=== PATIENT | male | born 1945 | race Caucasian/White ===

== ENCOUNTER → 2017-08-05 | Outpatient (CLI) | payer MEDICARE, OTHER ==
[~2017-08-05] MED LIST: AMLO10TA82 PO; ASP81TEC PO; ATOR80TA PO; BNZ20T PO; ENAL10TA PO; ENAL5TAB PO; ENLP2.5T PO; FISH1CAP15 PO; LEVE500T6 PO; METO50TA7 PO; MTP25TSR PO; OMG1KC PO; PANT40TA2 PO; PNT40TEC PO; PRAS10TA6 PO; SIMV20TA3 PO; SULF1TAB38 PO
[2017-08-05 10:13] LABS: ALBUMIN 4.1 GM/DL (3.2-4.5); BILIRUBIN,DIRECT 0.2 MG/DL (0.0-0.3); BILIRUBIN,INDIRECT 0.5 MG/DL; BILIRUBIN,TOTAL 0.7 MG/DL (0.1-1.0); TOTAL PROTEIN 6.6 GM/DL (6.4-8.2)
== END ==
LOC: LAB 09:24
PROVIDERS: ATTEND Internal Medicine Cardiovascular Disease
DX: I25.10 Atherosclerotic heart disease of native coronary artery without angina pectoris (principal); I10 Essential (primary) hypertension; E78.5 Hyperlipidemia, unspecified; I71.4 Abdominal aortic aneurysm, without rupture; I65.29 Occlusion and stenosis of unspecified carotid artery
CPT/HCPCS: 36415; 80061; 80076

== ENCOUNTER → 2017-08-11 | Outpatient (CLI) | payer MEDICARE, OTHER ==
[~2017-08-11] MED LIST changes: +CATHETER FLUSH 10 ML SYR IV PRN; +IOHEXOL 350 MG/ML 150 ML (OMNIPAQUE 350) VIAL IV ONE; +NS 250 ML (IVPB) BAG IV ONE
[2017-08-11 12:53] LABS: BUN/CREATININE RATIO 14; CALCIUM 9.2 MG/DL (8.5-10.1); CARBON DIOXIDE 18 MMOL/L (21-32); CHLORIDE 110 MMOL/L (98-107); CREATININE SERUM 1.11 MG/DL (0.60-1.30); GFR ESTIMATED > 60; GLUCOSE 78 MG/DL (70-105); POTASSIUM 4.5 MMOL/L (3.6-5.0); SODIUM 145 MMOL/L (135-145)
--- NOTE | 2017-08-11 16:16 | Diagnostic Imaging Report ---
INDICATION: Bilateral leg pain, weakness, occasional falls. TECHNIQUE: Pre and post IV contrast-enhanced CT angio abdominal aorta with bilateral lower extremity runoffs performed with 2D and 3D reconstructions. COMPARISON: Exam compared with a previous dated 05/30/2012. FINDINGS: An infrarenal abdominal aortic aneurysm treated with stent graft device anchored just below the takeoff of the opacified renal arteries bilaterally. The proximal aspect of the stent shows a large amount of new mural thrombus narrowing the lumen by about 80%. The aneurysmal sac is increased measuring 6.3 x 6.3 cm, previously 5.3 cm in diameter. No endoleak, however, is identified during the dynamic arterial phase. No evidence for aneurysmal rupture. This bifurcated device shows occlusion throughout the length of its left iliac segment. This is a new finding from prior. There is occlusion throughout the length of the left external iliac in the pelvis. There is some reconstitution at the level of the left common femoral. The right iliac component shows some likely neointimal hyperplasia without significant luminal stenosis or occlusion. The right external iliac artery is widely patent. The celiac and the superior mesenteric arteries are widely patent. There is therapeutic occlusion of the FLOR with a prominent arc of [place] as a developmental collateralization. There are no findings of acute solid or hollow visceral end-organ ischemia. An area of scarring in the lower pole of the left kidney, unchanged from prior. The gallbladder is absent. Liver, spleen, adrenals, and pancreas are nonacute. Right leg: There is moderate calcified plaque at the common femoral without hemodynamically significant stenosis. The profunda and its branches are patent. The right SFA shows only minimal plaque without stenosis. The popliteal is patent. The common tibial peroneal trunk is patent and through the level of the ankle, there is a three-vessel runoff. Left leg: Reconstitution of flow in the left leg at the common femoral is noted where there is moderate degrees of mixed soft and hard plaque and less than 50% stenosis. The profunda is patent. There is mild plaque, predominantly soft, in the proximal third of the left SFA and mild plaque, mixed soft and hard, in the distal third of the left SFA without hemodynamically significant degree of focal stenosis. The popliteal is patent and the common tibioperoneal trunk is patent and there is an opacified three-vessel runoff through the ankle. IMPRESSION: 1. Bifurcated stent graft shows progressive thrombus within its proximal aortic component and new complete occlusion of its left iliac limb. Increased size of aneurysmal sac, dimensions above, however no demonstrated endoleak at the arterial phase and no aneurysmal rupture. 2. There is occlusion of the left external iliac throughout its length with reconstitution at the level of the common femoral. 3. Mild disease involving the femoropopliteal system with patent three-vessel runoff bilaterally. 4. Abdominopelvic solid and hollow viscera, stable from prior and nonacute. Dictated by: Dictated on workstation # [id number]
== END ==
LOC: RAD 12:23
PROVIDERS: ATTEND Internal Medicine Cardiovascular Disease
DX: I74.5 Embolism and thrombosis of iliac artery (principal); I99.8 Other disorder of circulatory system; I21.9 Acute myocardial infarction, unspecified; I25.10 Atherosclerotic heart disease of native coronary artery without angina pectoris; I10 Essential (primary) hypertension; W19.XXXA Unspecified fall, initial encounter; Z95.818 Presence of other cardiac implants and grafts
CPT/HCPCS: 36415; 75635; 80048

== ENCOUNTER → 2017-09-03 | Outpatient (CLI) | payer MEDICARE, OTHER ==
[~2017-09-03] MED LIST changes: -CATHETER FLUSH 10 ML SYR IV PRN; -IOHEXOL 350 MG/ML 150 ML (OMNIPAQUE 350) VIAL IV ONE; -NS 250 ML (IVPB) BAG IV ONE
== END ==
LOC: RT 09:21
PROVIDERS: ATTEND Thoracic Surgery (Cardiothoracic Vascular Surgery)
DX: I71.4 Abdominal aortic aneurysm, without rupture (principal)
CPT/HCPCS: 94060; 94726; 94729

== ENCOUNTER 2018-01-21 09:34 | Inpatient (IN) | payer MEDICARE, OTHER ==
[~2018-01-21] VITALS: Ht 165.1 cm; Wt 82.1 kg
[2018-01-21] VITALS (21 sets, daily range): BP systolic 103–161; BP diastolic 57–87
[2018-01-21] MEDS ORDERED: PIPERACILLIN SODIUM/TAZOBACTAM 4.5 GM in NS (IVPB) 100 ML IV SCH (10:15)
[2018-01-21] MEDS ORDERED: CALCIUM CARBONATE 500 MG (TUMS) TAB.CHEW PO PRN (10:15)
[2018-01-21] MEDS ORDERED: DOCUSATE SODIUM 100 MG (COLACE) CAP PO PRN (10:15)
[2018-01-21] MEDS ORDERED: ONDANSETRON 4 MG/2 ML (SDV) Z0FRAN IVP PRN (10:15)
[2018-01-21] MEDS ORDERED: HYDROcodone/APAP 5 MG/325 MG (LORTAB) TAB PO PRN (10:15)
[2018-01-21] MEDS ORDERED: LACTULOSE SYRUP 10GM/15ML (ENULOSE) 30ML UDC PO PRN (10:15)
[2018-01-21] MEDS ORDERED: ENAL10TA PO (10:32)
[2018-01-21] MEDS ORDERED: ATOR80TA76 PO (10:32)
[2018-01-21] MEDS ORDERED: METO-387 PO (10:32)
[2018-01-21] MEDS ORDERED: CLOP75TA28 PO (10:32)
[2018-01-21] MEDS ORDERED: PANT40TA3 PO (10:32)
--- NOTE | 2018-01-21 10:33 | Pulmonary Consultation ---
History of Present Illness History of Present Illness Date of Consultation 01/21/18 10:30 Date of Admission Allergies and Home Medications Allergies Coded Allergies: No Known Drug Allergies (Unverified , 05/16/11) Home Medications Aspirin 81 Mg Tabec, 81 MG PO DAILY, (Reported) Atorvastatin Calcium 80 Mg Tablet, 80 MG PO DAILY, (Reported) Enalapril Maleate 10 Mg Tablet, 10 MG PO BID, (Reported) Fish Oil/Dha/Epa 1 Each Capsule, 3 EACH PO DAILY, (Reported) Levetiracetam 500 Mg Tablet, 500 MG PO BID, (Reported) Metoprolol Succinate 50 Mg Tab, 50 MG PO DAILY, (Reported) Pantoprazole Sodium 40 Mg Tablet.dr, 40 MG PO DAILY, (Reported) Prasugrel Hydrochloride 10 Mg Tablet, 10 MG PO DAILY, (Reported) Past Tdrjauz-Nafcif-Dyvjux Hx Past Medical History Reproductive Disorders: No Gall Bladder Disease Brain Sepsis Event Evaluation Height, Weight, BMI Height: 5'6.00" Weight: 185lbs. 0.0oz. [id number]; 29.9 BMI Method:Stated Exam Exam Height & Weight Height: 5'6.00" Weight: 185lbs. 0.0oz. 83.021238aj; 29.9 BMI Method:Stated Assessment/Plan Assessment/Plan pneumonia - -Check labs -Check CT of chest -change abx to vanco and zosyn -Pt has been on abx and transferred here from [facility] [place] secondary to persistent pneumonia despite IV ABx -PT will probably need bronchoscopy -Pt is currently on Plavix so it would be better to wait 5 days until he is off plavix Tobacco use JB SAINI DO Jan 21, 2018 10:33
--- OUTSIDE RECORDS SUMMARY | 2018-01-21 10:44 | XMS REPORT | Continuity of Care Document ---
Author Author [facility] Organization [facility] Address Unknown Phone Unavailable Allergies Active Description Code Type Severity Reaction Onset Reported/Identified Relationship to Patient Clinical Status Yes No Known Drug Allergies [id number] Drug Allergy Unknown N/A 05/16/2011 Medications There is no data. Problems Date Dx Coded Attending Type Code Diagnosis Diagnosed By 03/16/2014 ANDRES ARORA MD Ot 397.0 03/16/2014 ANDRES ARORA MD Ot 401.9 03/16/2014 ANDRES ARORA MD Ot 414.00 03/16/2014 ANDRES ARORA MD Ot 424.0 03/16/2014 ANDRES ARORA MD Ot 441.4 01/16/2015 ANDRES ARORA MD Ot 272.4 HYPERLIPIDEMIA NEC/NOS 01/16/2015 ANDRES ARORA MD Ot 305.1 TOBACCO USE DISORDER 01/16/2015 ANDRES ARORA MD Ot 401.9 HYPERTENSION NOS 01/16/2015 ANDRES ARORA MD Ot 412 OLD MYOCARDIAL INFARCT 01/16/2015 ANDRES ARORA MD Ot 414.01 CORONARY ATHEROSCLEROSIS OF [place] CORON 01/16/2015 ANDRES ARORA MD Ot 794.30 ABN CARDIOVASC STUDY NOS 01/16/2015 ANDRES ARORA MD Ot V12.41 HX BENIGN NEOPLASM/BRAIN 01/16/2015 ANDRES ARORA MD Ot V45.82 PERCUTANEOUS TRANSLUM CORON ANGIOPLASTY 01/16/2015 ANDRES ARORA MD Ot V58.69 OTH MED,LT,CURRENT USE 01/22/2015 SERJIO SARKAR Ot 401.9 01/22/2015 SERJIO SARKAR Ot 414.00 01/22/2015 SERJIO SARKAR Ot 433.10 01/22/2015 SERJIO SARKAR Ot 441.4 10/14/2015 SERJIO SARKAR K Ot I10 ESSENTIAL (PRIMARY) HYPERTENSION 10/14/2015 EDMAR ZHAO SERJIO K Ot I25.10 ATHSCL HEART DISEASE OF [place] CORONARY 10/14/2015 SERJIO SARKAR Ot I71.4 ABDOMINAL AORTIC ANEURYSM, WITHOUT RUPTU 10/18/2015 EDMAR ZHAO SERJIO K Ot I10 ESSENTIAL (PRIMARY) HYPERTENSION 10/18/2015 EDMAR ZHAO SERJIO K Ot I25.10 ATHSCL HEART DISEASE OF [place] CORONARY 10/18/2015 SERJIO SARKAR Ot I71.4 ABDOMINAL AORTIC ANEURYSM, WITHOUT RUPTU 08/09/2017 ANDRES ARORA MD Ot E78.5 HYPERLIPIDEMIA, UNSPECIFIED 08/09/2017 ANDRES ARORA MD Ot I10 ESSENTIAL (PRIMARY) HYPERTENSION 08/09/2017 ANDRES ARORA MD Ot I25.10 ATHSCL HEART DISEASE OF [place] CORONARY 08/09/2017 ANDRES ARORA MD Ot I65.29 OCCLUSION AND STENOSIS OF UNSPECIFIED CA 08/09/2017 ANRDES ARORA MD Ot I71.4 ABDOMINAL AORTIC ANEURYSM, WITHOUT RUPTU 08/09/2017 ANDRES ARORA MD Ot E78.5 HYPERLIPIDEMIA, UNSPECIFIED 08/09/2017 ANDRES ARORA MD Ot I10 ESSENTIAL (PRIMARY) HYPERTENSION 08/09/2017 ANDRES ARORA MD Ot I25.10 ATHSCL HEART DISEASE OF [place] CORONARY 08/09/2017 ANDRES ARORA MD Ot I65.29 OCCLUSION AND STENOSIS OF UNSPECIFIED CA 08/09/2017 ANDRES ARORA MD Ot I71.4 ABDOMINAL AORTIC ANEURYSM, WITHOUT RUPTU 08/11/2017 Ot 441.4 ABDOM AORTIC ANEURYSM 08/11/2017 Ot 414.00 CORON ATHEROSCLER NOS TYPE VESSEL, NATIV 08/11/2017 Ot 786.50 CHEST PAIN NOS 08/11/2017 Ot 397.0 TRICUSPID VALVE DISEASE 08/11/2017 Ot 414.00 CORON ATHEROSCLER NOS TYPE VESSEL, NATIV 08/11/2017 Ot 424.0 MITRAL VALVE DISORDER 08/11/2017 Ot 786.50 CHEST PAIN NOS 08/11/2017 ANDRES ARORA MD Ot 140.0 MAL АЛЕКСАНДР UPPER VERMILION 08/11/2017 ANDRES ARORA MD Ot 272.4 HYPERLIPIDEMIA NEC/NOS 08/11/2017 ANDRES ARORA MD Ot 305.1 TOBACCO USE DISORDER 08/11/2017 ANDRES ARORA MD Ot 333.94 RESTLESS LEGS SYNDROME 08/11/2017 ANDRES ARORA MD Ot 401.9 HYPERTENSION NOS 08/11/2017 ANDRES ARORA MD Ot 441.4 ABDOM AORTIC ANEURYSM 08/11/2017 ANDRES ARORA MD Ot 397.0 TRICUSPID VALVE DISEASE 08/11/2017 ANDRES ARORA MD Ot 401.9 HYPERTENSION NOS 08/11/2017 ANDRES ARORA MD Ot 414.00 CORON ATHEROSCLER NOS TYPE VESSEL, NATIV 08/11/2017 ANDRES ARORA MD Ot 424.0 MITRAL VALVE DISORDER 08/11/2017 ANDRES ARORA MD Ot 441.4 ABDOM AORTIC ANEURYSM 08/11/2017 SERJIO SARKAR Ot 401.9 HYPERTENSION NOS 08/11/2017 SERJIO SARKAR Ot 414.00 CORON ATHEROSCLER NOS TYPE VESSEL, NATIV 08/11/2017 SERJIO SARKAR Ot 433.10 CAROTID ARTERY OCCLUSION W O CEREBRAL IN 08/11/2017 SERJIO SARKAR Ot 441.4 ABDOM AORTIC ANEURYSM 08/11/2017 ANDRES ARORA MD Ot E78.5 HYPERLIPIDEMIA, UNSPECIFIED 08/11/2017 ANDRES ARORA MD Ot I10 ESSENTIAL (PRIMARY) HYPERTENSION 08/11/2017 ANDRES ARORA MD Ot I25.10 ATHSCL HEART DISEASE OF [place] CORONARY 08/11/2017 ANDRES ARORA MD Ot I65.29 OCCLUSION AND STENOSIS OF UNSPECIFIED CA 08/11/2017 ANDRES ARORA MD Ot I71.4 ABDOMINAL AORTIC ANEURYSM, WITHOUT RUPTU 08/11/2017 Ot 441.4 ABDOM AORTIC ANEURYSM 08/11/2017 Ot 414.00 CORON ATHEROSCLER NOS TYPE VESSEL, NATIV 08/11/2017 Ot 786.50 CHEST PAIN NOS 08/11/2017 Ot 397.0 TRICUSPID VALVE DISEASE 08/11/2017 Ot 414.00 CORON ATHEROSCLER NOS TYPE VESSEL, NATIV 08/11/2017 Ot 424.0 MITRAL VALVE DISORDER 08/11/2017 Ot 786.50 CHEST PAIN NOS 08/11/2017 ANDRES ARORA MD Ot 140.0 MAL АЛЕКСАНДР UPPER VERMILION 08/11/2017 ANDRES ARORA MD Ot 272.4 HYPERLIPIDEMIA NEC/NOS 08/11/2017 ANDRES ARORA MD Ot 305.1 TOBACCO USE DISORDER 08/11/2017 ANDRES ARORA MD Ot 333.94 RESTLESS LEGS SYNDROME 08/11/2017 ANDRES ARORA MD Ot 401.9 HYPERTENSION NOS 08/11/2017 ANDRES ARORA MD Ot 441.4 ABDOM AORTIC ANEURYSM 08/11/2017 ANDRES ARORA MD Ot 397.0 TRICUSPID VALVE DISEASE 08/11/2017 ANDRES ARORA MD Ot 401.9 HYPERTENSION NOS 08/11/2017 ANDRES ARORA MD Ot 414.00 CORON ATHEROSCLER NOS TYPE VESSEL, NATIV 08/11/2017 ANDRES ARORA MD Ot 424.0 MITRAL VALVE DISORDER 08/11/2017 ANDRES ARORA MD Ot 441.4 ABDOM AORTIC ANEURYSM 08/11/2017 SERJIO SARKAR Ot 401.9 HYPERTENSION NOS 08/11/2017 SERJIO SARKAR Ot 414.00 CORON ATHEROSCLER NOS TYPE VESSEL, NATIV 08/11/2017 SERJIO SARKAR Ot 433.10 CAROTID ARTERY OCCLUSION W O CEREBRAL IN 08/11/2017 SERJIO SARKAR Ot 441.4 ABDOM AORTIC ANEURYSM 08/11/2017 ANDRES ARORA MD Ot E78.5 HYPERLIPIDEMIA, UNSPECIFIED 08/11/2017 ANDRES ARORA MD Ot I10 ESSENTIAL (PRIMARY) HYPERTENSION 08/11/2017 ANDRES ARORA MD Ot I25.10 ATHSCL HEART DISEASE OF [place] CORONARY 08/11/2017 ANDRES ARORA MD Ot I65.29 OCCLUSION AND STENOSIS OF UNSPECIFIED CA 08/11/2017 ANDRES ARORA MD Ot I71.4 ABDOMINAL AORTIC ANEURYSM, WITHOUT RUPTU 08/12/2017 ANDRES ARORA MD Ot I10 ESSENTIAL (PRIMARY) HYPERTENSION 08/12/2017 ANDRES ARORA MD Ot I21.9 ACUTE MYOCARDIAL INFARCTION, UNSPECIFIED 08/12/2017 ANDRES ARORA MD Ot I25.10 ATHSCL HEART DISEASE OF [place] CORONARY 08/12/2017 ANDRES ARORA MD Ot I74.5 EMBOLISM AND THROMBOSIS OF ILI[place] ARTERY 08/12/2017 ANDRES ARORA MD Ot I99.8 OTHER DISORDER OF CIRCULATORY SYSTEM 08/12/2017 ANDRES ARORA MD Ot W19.XXXA UNSPECIFIED FALL, INITIAL ENCOUNTER 08/12/2017 ANDRES ARORA MD Ot Z95.818 PRESENCE OF OTHER CARDIAC IMPLANTS AND G 08/12/2017 ANDRES ARORA MD Ot I10 ESSENTIAL (PRIMARY) HYPERTENSION 08/12/2017 ANDRES ARORA MD Ot I21.9 ACUTE MYOCARDIAL INFARCTION, UNSPECIFIED 08/12/2017 ANDRES ARORA MD Ot I25.10 ATHSCL HEART DISEASE OF [place] CORONARY 08/12/2017 ANDRES ARORA MD Ot I74.5 EMBOLISM AND THROMBOSIS OF ILI[place] ARTERY 08/12/2017 ANDRES ARORA MD Ot I99.8 OTHER DISORDER OF CIRCULATORY SYSTEM 08/12/2017 ANDRES ARORA MD Ot W19.XXXA UNSPECIFIED FALL, INITIAL ENCOUNTER 08/12/2017 ANDRES ARORA MD Ot Z95.818 PRESENCE OF OTHER CARDIAC IMPLANTS AND G 08/25/2017 Ot 441.4 ABDOM AORTIC ANEURYSM 08/25/2017 Ot 414.00 CORON ATHEROSCLER NOS TYPE VESSEL, NATIV 08/25/2017 Ot 786.50 CHEST PAIN NOS 08/25/2017 Ot 397.0 TRICUSPID VALVE DISEASE 08/25/2017 Ot 414.00 CORON ATHEROSCLER NOS TYPE VESSEL, NATIV 08/25/2017 Ot 424.0 MITRAL VALVE DISORDER 08/25/2017 Ot 786.50 CHEST PAIN NOS 08/25/2017 ANDRES ARORA MD Ot 140.0 MAL АЛЕКСАНДР UPPER VERMILION 08/25/2017 ANDRES ARORA MD Ot 272.4 HYPERLIPIDEMIA NEC/NOS 08/25/2017 ANDRES ARORA MD Ot 305.1 TOBACCO USE DISORDER 08/25/2017 ANDRES ARORA MD Ot 333.94 RESTLESS LEGS SYNDROME 08/25/2017 ANDRES ARORA MD Ot 401.9 HYPERTENSION NOS 08/25/2017 ANDRES ARORA MD Ot 441.4 ABDOM AORTIC ANEURYSM 08/25/2017 ANDRES ARORA MD Ot 397.0 TRICUSPID VALVE DISEASE 08/25/2017 ANDRES ARORA MD Ot 401.9 HYPERTENSION NOS 08/25/2017 ANDRES ARORA MD Ot 414.00 CORON ATHEROSCLER NOS TYPE VESSEL, NATIV 08/25/2017 ANDRES ARORA MD Ot 424.0 MITRAL VALVE DISORDER 08/25/2017 ANDRES ARORA MD Ot 441.4 ABDOM AORTIC ANEURYSM 08/25/2017 SERJIO SARKAR Ot 401.9 HYPERTENSION NOS 08/25/2017 SERJIO SARKAR Ot 414.00 CORON ATHEROSCLER NOS TYPE VESSEL, NATIV 08/25/2017 SERJIO SARKAR Ot 433.10 CAROTID ARTERY OCCLUSION W O CEREBRAL IN 08/25/2017 SERJIO SARKAR Ot 441.4 ABDOM AORTIC ANEURYSM 08/25/2017 ANDRES ARORA MD Ot E78.5 HYPERLIPIDEMIA, UNSPECIFIED 08/25/2017 ANDRES ARORA MD Ot I10 ESSENTIAL (PRIMARY) HYPERTENSION 08/25/2017 ANDRES ARORA MD Ot I25.10 ATHSCL HEART DISEASE OF [place] CORONARY 08/25/2017 ANDRES ARORA MD Ot I65.29 OCCLUSION AND STENOSIS OF UNSPECIFIED CA 08/25/2017 ANDRES ARORA MD Ot I71.4 ABDOMINAL AORTIC ANEURYSM, WITHOUT RUPTU 08/25/2017 ANDRES ARORA MD Ot I10 ESSENTIAL (PRIMARY) HYPERTENSION 08/25/2017 ANDRES ARORA MD Ot I21.9 ACUTE MYOCARDIAL INFARCTION, UNSPECIFIED 08/25/2017 ANDRES ARORA MD Ot I25.10 ATHSCL HEART DISEASE OF [place] CORONARY 08/25/2017 ANDRES ARORA MD Ot I74.5 EMBOLISM AND THROMBOSIS OF ILI[place] ARTERY 08/25/2017 ANDRES ARORA MD Ot I99.8 OTHER DISORDER OF CIRCULATORY SYSTEM 08/25/2017 ANDRES ARORA MD Ot W19.XXXA UNSPECIFIED FALL, INITIAL ENCOUNTER 08/25/2017 ANDRES ARORA MD Ot Z95.818 PRESENCE OF OTHER CARDIAC IMPLANTS AND G 08/26/2017 ANDRES ARORA MD Ot E78.5 HYPERLIPIDEMIA, UNSPECIFIED 08/26/2017 ANDRES ARORA MD Ot I10 ESSENTIAL (PRIMARY) HYPERTENSION 08/26/2017 ANDRES ARORA MD Ot I25.10 ATHSCL HEART DISEASE OF [place] CORONARY 08/26/2017 ANDRES ARORA MD Ot I65.29 OCCLUSION AND STENOSIS OF UNSPECIFIED CA 08/26/2017 ANDRES ARORA MD Ot I71.4 ABDOMINAL AORTIC ANEURYSM, WITHOUT RUPTU 08/26/2017 ANDRES ARORA MD Ot I10 ESSENTIAL (PRIMARY) HYPERTENSION 08/26/2017 ANDRES ARORA MD Ot I25.10 ATHSCL HEART DISEASE OF [place] CORONARY 08/26/2017 ANDRES ARORA MD Ot I71.4 ABDOMINAL AORTIC ANEURYSM, WITHOUT RUPTU 08/31/2017 ANDRES ARORA MD Ot I10 ESSENTIAL (PRIMARY) HYPERTENSION 08/31/2017 ANDRES ARORA MD Ot I21.9 ACUTE MYOCARDIAL INFARCTION, UNSPECIFIED 08/31/2017 ANDRES ARORA MD Ot I25.10 ATHSCL HEART DISEASE OF [place] CORONARY 08/31/2017 ANDRES ARORA MD Ot I74.5 EMBOLISM AND THROMBOSIS OF [place] ARTERY 08/31/2017 ANDRES ARORA MD Ot I99.8 OTHER DISORDER OF CIRCULATORY SYSTEM 08/31/2017 ANDRES ARORA MD Ot W19.XXXA UNSPECIFIED FALL, INITIAL ENCOUNTER 08/31/2017 ANDRES ARORA MD Ot Z95.818 PRESENCE OF OTHER CARDIAC IMPLANTS AND G 09/02/2017 Ot 441.4 ABDOM AORTIC ANEURYSM 09/02/2017 Ot 414.00 CORON ATHEROSCLER NOS TYPE VESSEL, NATIV 09/02/2017 Ot 786.50 CHEST PAIN NOS 09/02/2017 Ot 397.0 TRICUSPID VALVE DISEASE 09/02/2017 Ot 414.00 CORON ATHEROSCLER NOS TYPE VESSEL, NATIV 09/02/2017 Ot 424.0 MITRAL VALVE DISORDER 09/02/2017 Ot 786.50 CHEST PAIN NOS 09/02/2017 ANDRES ARORA MD Ot 140.0 MAL АЛЕКСАНДР UPPER VERMILION 09/02/2017 ANDRES ARORA MD Ot 272.4 HYPERLIPIDEMIA NEC/NOS 09/02/2017 ANDRES ARORA MD Ot 305.1 TOBACCO USE DISORDER 09/02/2017 ANDRES ARORA MD Ot 333.94 RESTLESS LEGS SYNDROME 09/02/2017 ANDRES ARORA MD Ot 401.9 HYPERTENSION NOS 09/02/2017 ANDRES ARORA MD Ot 441.4 ABDOM AORTIC ANEURYSM 09/02/2017 ANDRES ARORA MD Ot 397.0 TRICUSPID VALVE DISEASE 09/02/2017 ANDRES ARORA MD Ot 401.9 HYPERTENSION NOS 09/02/2017 ANDRES ARORA MD Ot 414.00 CORON ATHEROSCLER NOS TYPE VESSEL, NATIV 09/02/2017 ANDRES ARORA MD Ot 424.0 MITRAL VALVE DISORDER 09/02/2017 ANDRES ARORA MD Ot 441.4 ABDOM AORTIC ANEURYSM 09/02/2017 SERJIO SARKAR Ot 401.9 HYPERTENSION NOS 09/02/2017 SERJIO SARKAR Ot 414.00 CORON ATHEROSCLER NOS TYPE VESSEL, NATIV 09/02/2017 SERJIO SARKAR Ot 433.10 CAROTID ARTERY OCCLUSION W O CEREBRAL IN 09/02/2017 SERJIO SARKAR Ot 441.4 ABDOM AORTIC ANEURYSM 09/02/2017 ANDRES ARORA MD Ot E78.5 HYPERLIPIDEMIA, UNSPECIFIED 09/02/2017 ANDRES ARORA MD Ot I10 ESSENTIAL (PRIMARY) HYPERTENSION 09/02/2017 ANDRES ARORA MD Ot I25.10 ATHSCL HEART DISEASE OF [place] CORONARY 09/02/2017 ANDRES ARORA MD Ot I65.29 OCCLUSION AND STENOSIS OF UNSPECIFIED CA 09/02/2017 ANDRES ARORA MD Ot I71.4 ABDOMINAL AORTIC ANEURYSM, WITHOUT RUPTU 09/02/2017 ANDRES ARORA MD Ot I10 ESSENTIAL (PRIMARY) HYPERTENSION 09/02/2017 ANDRES ARORA MD Ot I21.9 ACUTE MYOCARDIAL INFARCTION, UNSPECIFIED 09/02/2017 ANDRES ARORA MD Ot I25.10 ATHSCL HEART DISEASE OF [place] CORONARY 09/02/2017 ANDRES ARORA MD Ot I74.5 EMBOLISM AND THROMBOSIS OF ILI[place] ARTERY 09/02/2017 ANDRES ARORA MD Ot I99.8 OTHER DISORDER OF CIRCULATORY SYSTEM 09/02/2017 ANDRES ARORA MD Ot W19.XXXA UNSPECIFIED FALL, INITIAL ENCOUNTER 09/02/2017 ANDRES ARORA MD Ot Z95.818 PRESENCE OF OTHER CARDIAC IMPLANTS AND G 09/02/2017 ANDRES ARORA MD Ot I10 ESSENTIAL (PRIMARY) HYPERTENSION 09/02/2017 ANDRES ARORA MD Ot I25.10 ATHSCL HEART DISEASE OF [place] CORONARY 09/02/2017 ANDRES ARORA MD Ot I71.4 ABDOMINAL AORTIC ANEURYSM, WITHOUT RUPTU 09/07/2017 GEOVANNI MEDINA MD Ot I71.4 ABDOMINAL AORTIC ANEURYSM, WITHOUT RUPTU 09/13/2017 ANDRES ARORA MD Ot I10 ESSENTIAL (PRIMARY) HYPERTENSION 09/13/2017 ANDRES ARORA MD Ot I21.9 ACUTE MYOCARDIAL INFARCTION, UNSPECIFIED 09/13/2017 ANDRES ARORA MD Ot I25.10 ATHSCL HEART DISEASE OF [place] CORONARY 09/13/2017 ANDRES ARORA MD Ot I74.5 EMBOLISM AND THROMBOSIS OF ILIAC ARTERY 09/13/2017 ANDRES ARORA MD Ot I99.8 OTHER DISORDER OF CIRCULATORY SYSTEM 09/13/2017 ANDRES ARORA MD Ot W19.XXXA UNSPECIFIED FALL, INITIAL ENCOUNTER 09/13/2017 ANDRES ARORA MD Ot Z95.818 PRESENCE OF OTHER CARDIAC IMPLANTS AND G 09/14/2017 ANDRES ARORA MD Ot I10 ESSENTIAL (PRIMARY) HYPERTENSION 09/14/2017 ANDRES ARORA MD Ot I25.10 ATHSCL HEART DISEASE OF [place] CORONARY 09/14/2017 ANDRES ARORA MD Ot I71.4 ABDOMINAL AORTIC ANEURYSM, WITHOUT RUPTU 09/23/2017 GEOVANNI MEDINA MD Ot I71.4 ABDOMINAL AORTIC ANEURYSM, WITHOUT RUPTU Procedures There is no data. Results There is no data. Encounters ACCT No. Visit Date/Time Discharge Status Pt. Type Provider Facility Loc./Unit Complaint [id number] 09/03/2017 09:21:00 09/03/2017 23:59:59 CLS Outpatient GEOVANNI MEDINA MD [facility] RT AAA W/O RUPTURE [id number] 08/25/2017 11:41:00 08/25/2017 23:59:59 CLS Outpatient ANDRES ARORA MD [facility] CARD I71.4 AAA,CAD [id number] 08/11/2017 12:23:00 08/11/2017 23:59:59 CLS Outpatient ANDRES ARORA MD [facility] RAD M79.604 LEG PAIN,RIGHT M79.605 LEG PAIN,LEFT [id number] 08/05/2017 09:24:00 08/05/2017 23:59:59 CLS Outpatient ANDRES ARORA MD [facility] LAB I25.10 I10 E78.3 I71.4 I65.23 [id number] 10/14/2015 10:36:00 10/14/2015 12:10:00 DIS Outpatient SERJIO SARKAR [facility] CARD AAA, CAD, ROSARIO,HTN [id number] 01/16/2015 11:49:00 01/16/2015 20:40:00 DIS Outpatient ANDRES ARORA MD [facility] CATH ABN STRESS, PAD,HTN,HLP [id number] 01/02/2015 11:25:00 01/02/2015 23:59:59 CLS Outpatient SERJIO SARKAR [facility] CARD AAA,CAD, STENOSIS,HTN [id number] 10/23/2013 08:15:00 10/23/2013 23:59:59 CLS Outpatient ANDRES ARORA MD [facility] CARD CAD,HTN,HLP [id number] 07/17/2013 09:02:00 07/17/2013 23:59:59 CLS Outpatient ANDRES ARORA MD [facility] LAB HTN,CAD,AAA [id number] 08/11/2017 12:25:00 Document Registration [id number] 06/27/2012 07:54:00 Document Registration [id number] 06/20/2012 10:40:00 Document Registration [id number] 05/30/2012 08:44:00 Document Registration
[2018-01-21] MEDS ORDERED: PIPERACILLIN/TAZO 4.5 GM/NS 100 ML IV NR ×2 (10:45)
[2018-01-21] MEDS ORDERED: NS 250 ML (IVPB) BAG IV ONE (10:45)
[2018-01-21] MEDS ORDERED: IOHEXOL 350 MG/ML 100 ML (OMNIPAQUE 350) VIAL IV ONE (10:45)
[2018-01-21] MEDS ORDERED: OMG1KC PO (10:57)
[2018-01-21] MEDS ORDERED: ASPI-983 PO (10:57)
[2018-01-21] MEDS ORDERED: FLU QUADRIvalent (5+ YOA) 2018-2019 (AFLURIA) 0.5 ML IM ONE (11:15)
[2018-01-21] MEDS: NS IV 1000 ML 1,000 ML IV SCH ×3 (11:28→23:06)
[2018-01-21] MEDS ORDERED: VANCOMYCIN 1500 MG/NS 500 ML IVPB IV NR ×2 (11:30)
[2018-01-21 11:55] LABS: ABG BASE EXCESS -4.4 MMOL/L (-2.5-2.5); ABG OXYGEN SATURATION 96 % (94-100); ABG PCO2 30 MMHG (35-45); ABG PH 7.43 (7.37-7.43); ABG PO2 71 MMHG (79-93); ABG TCO2 20.4 MMOL/L (21.0-31.0); ALLENS TEST POSITIVE; INSPIRED O2 2; VENTILATOR NO
[2018-01-21] MEDS: ENOXAPARIN 40 MG/0.4 ML (LOVENOX) SYR SC SCH (12:00)
--- NOTE | 2018-01-21 12:00 | History & Physical-Hospitalist ---
KEN JONES MED STUDENT 01/21/18 1200: History of Present Illness HPI/Chief Complaint CC: Left side pneumonia, failed antibiotics at [facility] HPI: This is a 72 yo male directly admitted from Dr. Jimenez at [facility] where he was admitted for a left sided pneumonia that was not resolving despite IV antibiotics. Patient is confused about his condition making him a poor historian. States he was admitted Wednesday for a fever. [place] [facility] also admits he has had a cough, congestion, and fatigue. Source: patient, family Date Seen 01/21/18 Time Seen by a Provider: 11:40 Attending Physician Kassie Hickey DO PCP Osmany Jimenez DO Referring Physician Date of Admission Jan 21, 2018 at 10:26 Home Medications & Allergies Home Medications Reviewed patient Home Medication Reconciliation performed by pharmacy medication reconciliations clock repair technician and/or nursing. Patients Allergies have been reviewed. Allergies Allergies Coded Allergies No Known Drug Allergies (Unverified05/16/11) Past Wteocgh-Kqjdna-Edspsc Hx Past Med/Social Hx: Reviewed Nursing Past Med/Soc Hx Patient Social History Marrital Status: Employed/Student: retired Alcohol Use: Past History Recreational Drug Use: No Smoking Status: Current Everyday Smoker Cigaretts per day: 10 Type Used: Cigarettes Physical Abuse Screen: No Sexual Abuse: No Recent Foreign Travel: No Contact w/other who traveled: No Recent Infectious Disease Expo: No Social History states he quit drinking 10 years ago retired from [employer] service Past Medical History brain meingioma, removed 2014 Cardiac: Coronary Artery Disease, Heart Attack, High Cholesterol, Hypertension had an aneurism in his left leg, stent placed 2 years ago, symptoms resolve Neurological: Brain Tumor (benign, removed, meningioma) Reproductive: No Gastrointestinal: Gastroesophageal Reflux, Hiatal Hernia, Gall Bladder Disease Cancer: Brain Did You Recieve Any Treatments: Yes What Type of Treatment Did You: Radiation Cancer: last radiation september 02, 2016 History of Blood Disorders: Yes (AAA) Adverse Reaction to Blood Chappell: No Family History Heart Disease (brother suddenly because he "had a hole in his heart and didn't know it"), Cancer (brother, "throat cancer"), CAD Over 55 Years Old ( father) Review of Systems Constitutional: fever EENTM: no symptoms reported Respiratory: cough, other (congestion) Cardiovascular: no symptoms reported Gastrointestinal: no symptoms reported Genitourinary: no symptoms reported Musculoskeletal: no symptoms reported Skin: no symptoms reported Psychiatric/Neurological: Other (confused, per son) Physical Exam Physical Exam Vital Signs Vital Signs - First Documented 01/21/18 01/21/18 10:48 11:00 Temp 97.5 Pulse 62 Resp 11 B/P (MAP) 106/58 (74) Pulse Ox 94 Capillary Refill : Height, Weight, BMI Height: 5'5.00" Weight: 177lbs. 0.0oz. [id number]; 29.5 BMI Method:Stated General Appearance: No Apparent Distress, WD/WN HEENT: Normal ENT Inspection, Pharynx Normal Neck: Full Range of Motion, Normal Inspection, Non Tender, Supple Respiratory: Chest Non Tender, Lungs Clear, Normal Breath Sounds, No Accessory Muscle Use, No Respiratory Distress Cardiovascular: Regular Rate, Rhythm, No Edema, No Gallop, No JVD, No Murmur, Normal Peripheral Pulses Gastrointestinal: Normal Bowel Sounds, No Organomegaly, Non Tender, Soft Back: Normal Inspection, No CVA Tenderness, No Vertebral Tenderness Extremity: Normal Capillary Refill, Normal Inspection, Normal Range of Motion, Non Tender, No Calf Tenderness, No Pedal Edema Neurologic/Psychiatric: Alert, No Motor/Sensory Deficits, Normal Mood/Affect, Disoriented (unsure why he is here, states he feels fine) Skin: Normal Color, Warm/Dry Lymphatic: No Adenopathy Results Results/Procedures Labs Patient resulted labs reviewed. Assessment/Plan Admission Diagnosis pneumonia Admission Status: Inpatient Order (span 2 midnights) Reason for Inpatient Admission: pneumonia, unresolved after IV antibiotics at [facility] Assessment and Plan Assesment: pneumonia confused (was to have proton therapy 01/23 due to meningioma, this has been cancelled per until he recovers from acute illness) PMHx CAD, NC, meningioma smoker Plan: CT today Abx change to vancomycin and zosyn Dr. Rosenthal will perform bronchoscopy (consider waiting due to plavix therapy, risk of bleeding) Consult Dr. Beltre Clinical Quality Measures DVT/VTE Risk/Contraindication: Risk Factor Score Per Nursin RFS Level Per Nursing on Admit: 4+=Very High KASSIE HICKEY DO 01/21/18 1317: History of Present Illness Source: patient, family Date Seen 01/21/18 Time Seen by a Provider: 11:30 Home Medications & Allergies Home Medications Reviewed Past Iivyfvp-Tmdvxg-Luebaf Hx Past Med/Social Hx: Reviewed Nursing Past Med/Soc Hx, Reviewed and Corrections made Patient Social History Marrital Status: Employed/Student: retired ([employer] service in [place]) Alcohol Use: Past History Smoking Status: Current Everyday Smoker Type Used: Cigarettes Past Medical History Respiratory: Pneumonia Cardiac: Coronary Artery Disease, Heart Attack, High Cholesterol, Hypertension Neurological: Brain Tumor (benign, removed, meningioma) Gastrointestinal: Gastroesophageal Reflux Cancer: Brain What Type of Treatment Did You: Radiation Review of Systems Constitutional: see HPI, weakness EENTM: no symptoms reported Respiratory: cough, short of breath, other (congestion) Cardiovascular: no symptoms reported Gastrointestinal: no symptoms reported Genitourinary: no symptoms reported Musculoskeletal: no symptoms reported Skin: no symptoms reported Psychiatric/Neurological: No Symptoms Reported All Other Systems Reviewed Negative Unless Noted: Yes Physical Exam Physical Exam General Appearance: No Apparent Distress, WD/WN, Chronically ill Eyes: Bilateral Eye Normal Inspection, Bilateral Eye PERRL HEENT: PERRL/EOMI, TMs Normal, Normal ENT Inspection, Pharynx Normal Neck: Full Range of Motion, Normal Inspection, Non Tender, Supple, Carotid Bruit Respiratory: Chest Non Tender, No Accessory Muscle Use, No Respiratory Distress , Decreased Breath Sounds, Wheezing (left) Cardiovascular: Regular Rate, Rhythm, No Edema, No Gallop, No JVD, No Murmur, Normal Peripheral Pulses Gastrointestinal: Normal Bowel Sounds, No Organomegaly, No Pulsatile Mass, Non Tender, Soft Back: Normal Inspection, No CVA Tenderness, No Vertebral Tenderness Extremity: Normal Capillary Refill, Normal Inspection, Normal Range of Motion, Non Tender, No Calf Tenderness, No Pedal Edema Neurologic/Psychiatric: Alert, Oriented x3, No Motor/Sensory Deficits, Normal Mood/Affect Skin: Normal Color, Warm/Dry Lymphatic: No Adenopathy Assessment/Plan Admission Diagnosis Pneumonia failed [place] [facility] [place]mission Status: Inpatient Order (span 2 midnights) Reason for Inpatient Admission: Failed abx [place] [facility] and will require CT scan and bronch Assessment and Plan IV abx Appreciate Dr Rosenthal's help Diagnosis/Problems Diagnosis/Problems (1) Meningioma Status: Chronic (2) CAD (coronary artery disease) Status: Chronic Qualifiers: Coronary Disease-Associated Artery/Lesion type: [place] artery [place] vs. transplanted heart: [place] heart Associated angina: without angina Qualified Codes: I25.10 - Atherosclerotic heart disease of [place] coronary artery without angina pectoris (3) PVD (peripheral vascular disease) Status: Chronic (4) Hypertension Status: Chronic Qualifiers: Hypertension type: essential hypertension Qualified Codes: I10 - Essential (primary) hypertension (5) Smoker Status: Chronic (6) Pneumonia Status: Acute Qualifiers: Pneumonia type: due to unspecified organism Laterality: left Lung location: unspecified part of lung Qualified Codes: J18.9 - Pneumonia, unspecified organism KEN JONES STUDENT Jan 21, 2018 12:00 KASSIE HICKEY DO Jan 21, 2018 13:17
--- NOTE | 2018-01-21 12:01 | Diagnostic Imaging Report ---
PROCEDURE: CT chest with contrast only. TECHNIQUE: Multiple contiguous axial images were obtained through the chest after administration of intravenous contrast. INDICATION: Pneumonia. There are no prior CT chest examinations available for comparison. The heart size is within normal limits. There are coronary artery calcifications evident. The aorta is not abnormally dilated. There is no defect within the pulmonary arteries indicate a pulmonary embolus. There is a prominent wedge-shaped area of increased density involving the left lung base. This does suggest pneumonia/atelectasis. There is no clearance for an underlying mass in this area. There is also a very small amount of pneumonia/atelectasis and fluid in the right lung base. The fluid measures approximately 1 cm in maximum depth. There are few small mediastinal nodes. The largest of these is in the right pretracheal region and measures 1.6 x 1.8 cm. These nodes are nonspecific and may be reactive in nature. The thyroid gland is generally unremarkable. The sections through the upper abdomen failed to show any sign acute abnormality. The bone windows are unremarkable for a fracture or for a destructive lesion. IMPRESSION: 1. There is a prominent area of pneumonia/atelectasis in the left lung base. There is no underlying mass to suggest a malignant process. Even so, a followup (4-6 weeks) chest exam would be recommended to assure that this abnormal parenchymal density clears completely. 2. There is mild right lower lobe atelectasis/infiltrate and small amount of fluid. 3. There is no acute cardiopulmonary abnormality noted otherwise. Dictated by: Dictated on workstation # [id number]
[2018-01-21 12:16] LABS: BASOPHILS % (AUTO) 0 % (0-10); EOSINOPHILS % (AUTO) 0 % (0-10); HEMATOCRIT 36 % (40-54); HEMOGLOBIN 12.4 G/DL (13.3-17.7); LYMPHOCYTES # (AUTO) 0.7 X 10^3 (1.0-4.0); LYMPHOCYTES % (AUTO) 8 % (12-44); MEAN CORPUSCULAR HEMOGLOBIN 30 PG (25-34); MEAN CORPUSCULAR HGB CONC 34 G/DL (32-36); MEAN CORPUSCULAR VOLUME 88 FL (80-99); MEAN PLATELET VOLUME 10.8 FL (7.4-10.4); MONOCYTES # (AUTO) 1.1 X 10^3 (0.0-1.0); MONOCYTES % (AUTO) 12 % (0-12); NEUTROPHILS # (AUTO) 7.1 X 10^3 (1.8-7.8); NEUTROPHILS % (AUTO) 80 % (42-75); PLATELET COUNT 193 10^3/uL (130-400); RED BLOOD COUNT 4.14 10^6/uL (4.35-5.85); RED CELL DISTRIBUTION WIDTH 15.4 % (10.0-14.5); WHITE BLOOD COUNT 8.9 10^3/uL (4.3-11.0)
[2018-01-21 12:37] LABS: ALANINE AMINOTRANSFERASE 29 U/L (0-55); ALBUMIN 2.9 GM/DL (3.2-4.5); ALKALINE PHOSPHATASE 47 U/L (40-136); BILIRUBIN,TOTAL 0.3 MG/DL (0.1-1.0); BUN/CREATININE RATIO 15; CALCIUM 7.8 MG/DL (8.5-10.1); CARBON DIOXIDE 22 MMOL/L (21-32); CHLORIDE 110 MMOL/L (98-107); CREATININE SERUM 0.74 MG/DL (0.60-1.30); GFR ESTIMATED > 60; GLUCOSE 109 MG/DL (70-105); POTASSIUM 3.4 MMOL/L (3.6-5.0); SODIUM 139 MMOL/L (135-145); TOTAL PROTEIN 5.5 GM/DL (6.4-8.2)
--- NOTE | 2018-01-21 13:18 | Consultation-Cardiology ---
HPI-Cardiology Cardiology Consultation: Date of Consultation 01/21/18 Time Seen by a Provider: 13:30 Date of Admission 01-21-18 Attending Physician Kassie Ramirez DO Admitting Physician Osmany Jimenez DO Consulting Physician Taylor Fisher MD HPI: Chief Complaint: Dyspnea Pneumonia CAD Mr. Cosby is a 72 year old male transferred [place] [facility] [place] ICU 6 with pneumonia. Multiple family including spouse at the bedside. They report he began to have increasing SOB on Wednesday with gen weakness. He and family report lose productive cough. The family reports confusion. He was noted to have a temp greater than 100 degrees at home. He was taken to [facility]. He has been receiving IV abx tx, but has not improved. He continues to have SOB. No c/o CP, palpitations, syncope or near syncope. He continues to smoke cigs Review of Systems-Cardiology Review of Systems Constitutional: chills, fever, malaise Eyes: No vision change Ears/Nose/Throat: No epistaxis, No recent hearing loss Respiratory: As described under HPI Cardiovascular: As described under HPI Gastrointestinal: No constipation; nausea; No vomiting Genitourinary: No dysuria, No hematuria Musculoskeletal: no symptoms reported Skin: No rash, No ulcerations Psychiatric/Neurological: other; No anxiety, No depression, No focal weakness, No syncope Hematologic: No bleeding abnormalities BAM-Hboqqu-Emkntj Hx Patient Social History Marrital Status: Employed/Student: retired Alcohol Use: Past History Recreational Drug Use: No Smoking Status: Current Everyday Smoker Cigaretts per day: 10 Type Used: Cigarettes Recent Foreign Travel: No Recent Infectious Disease Expo: No Physical Abuse Screen: No Sexual Abuse: No Past Medical History PMH As described under Assessment. Allergies and Home Medications Allergies Coded Allergies: No Known Drug Allergies (Unverified , 05/16/11) Home Medications Aspirin 81 Mg Tablet.dr, 81 MG PO DAILY, (Reported) Atorvastatin Calcium 80 Mg Tablet, 80 MG PO HS, (Reported) Clopidogrel Bisulfate 75 Mg Tablet, 75 MG PO DAILY, (Reported) Enalapril Maleate 10 Mg Tablet, 10 MG PO BID, (Reported) Levetiracetam 500 Mg Tablet, 1,000 MG PO BID, (Reported) TAKES 2 (500MG) TABLETS Metoprolol Succinate 25 Mg Tab.er.24h, 25 MG PO DAILY, (Reported) Archbold 3 Polyunsat Fatty Acids 1,000 Mg Cap, 3,000 MG PO DAILY, (Reported) TAKES 3 (1000MG) CAPSULES Pantoprazole Sodium 40 Mg Tablet.dr, 40 MG PO DAILY, (Reported) Patient Home Medication List Home Medication List Reviewed: Yes Physical Exam-Cardiology Physical Exam Vital Signs/I&O 01/24/18 01/24/18 01/24/18 01/24/18 03:00 04:00 04:00 04:00 Temp 98.4 Pulse 75 72 Resp 21 32 B/P (MAP) 152/76 (101) Pulse Ox 95 94 O2 Delivery Nasal Cannula Nasal Cannula Nasal Cannula O2 Flow Rate 3.00 3.00 3.00 01/24/18 01/24/18 01/24/18 01/24/18 05:00 06:00 07:17 07:38 Temp 98.3 Pulse 70 70 Resp 23 19 B/P (MAP) 123/60 (81) 110/53 (72) Pulse Ox 91 93 O2 Delivery Nasal Cannula Nasal Cannula Room Air O2 Flow Rate 3.00 3.00 01/24/18 01/24/18 01/24/18 01/24/18 08:40 09:00 11:51 12:27 Temp 97.5 98.7 Pulse 79 80 Resp 20 20 B/P (MAP) 116/65 (82) 130/65 (86) Pulse Ox 91 90 91 O2 Delivery Room Air Room Air Room Air Room Air 01/24/18 00:00 Intake Total 700 ml Output Total 1200 ml Balance -500 ml Capillary Refill : Constitutional: appears stated age, well-developed, well-nourished, other ( Inappropriate conversation at times requiring re-direction; awake, alert and oriented to self and place) HEENT: PERRL, hearing is well preserved, oral hygience is good Neck: No carotid bruit; carotid pulses are 2 + bilaterally Respiratory: No accessory muscle use, No respiratory distress; rhonchi ( scattered), other (diminished bases bilat) Cardiovascular: regular rate-rhythm; No JVD; S1 and S2, systolic murmur Gastrointestinal: No tender; soft, round, audible bowel sounds Rectal: deferred Extremities: no lower extremity edema bilateral Neurologic/Psychiatric: grossly intact, power is 5/5 both on sides Skin: No rash, No ulcerations Data Review Labs Laboratory Tests 01/24/18 02:54: White Blood Count 5.8, Red Blood Count 3.69L, Hemoglobin 11.3L, Hematocrit 32L, Mean Corpuscular Volume 88, Mean Corpuscular Hemoglobin 31, Mean Corpuscular Hemoglobin Concent 35, Red Cell Distribution Width 15.9H, Platelet Count 223, Mean Platelet Volume 11.0H, Neutrophils (%) (Auto) 65, Lymphocytes (%) (Auto) 18 , Monocytes (%) (Auto) 13H, Eosinophils (%) (Auto) 4, Basophils (%) (Auto) 0, Neutrophils # (Auto) 3.7, Lymphocytes # (Auto) 1.1, Monocytes # (Auto) 0.7, Eosinophils # (Auto) 0.3, Basophils # (Auto) 0.0, Sodium Level 139, Potassium Level 3.6, Chloride Level 110H, Carbon Dioxide Level 20L, Anion Gap 9, Blood Urea Nitrogen 9, Creatinine 0.80, Estimat Glomerular Filtration Rate > 60, BUN/ Creatinine Ratio 11, Glucose Level 113H, Calcium Level 8.3L, Phosphorus Level 2.5, Magnesium Level 2.1 Microbiology 01/21/18 Blood Culture - Preliminary, Resulted No growth 01/22/18 Gram Stain - Final, Complete 01/22/18 Sputum Culture - Final, Complete Yeast species Usual upper respiratory socrates Radiology NAME: THERESA COSBY [facility] REC#: [id number] PT STATUS: ADM IN : 1945 PHYSICIAN: JB SAINI DO ADMIT DATE: 01/21/18/ICU Draft Date of Exam:01/21/18 CT CHEST W PROCEDURE: CT chest with contrast only. TECHNIQUE: Multiple contiguous axial images were obtained through the chest after administration of intravenous contrast. INDICATION: Pneumonia. There are no prior CT chest examinations available for comparison. The heart size is within normal limits. There are coronary artery calcifications evident. The aorta is not abnormally dilated. There is no defect within the pulmonary arteries indicate a pulmonary embolus. There is a prominent wedge-shaped area of increased density involving the left lung base. This does suggest pneumonia/atelectasis. There is no clearance for an underlying mass in this area. There is also a very small amount of pneumonia/atelectasis and fluid in the right lung base. The fluid measures approximately 1 cm in maximum depth. There are few small mediastinal nodes. The largest of these is in the right pretracheal region and measures 1.6 x 1.8 cm. These nodes are nonspecific and may be reactive in nature. The thyroid gland is generally unremarkable. The sections through the upper abdomen failed to show any sign acute abnormality. The bone windows are unremarkable for a fracture or for a destructive lesion. IMPRESSION: 1. There is a prominent area of pneumonia/atelectasis in the left lung base. There is no underlying mass to suggest a malignant process. Even so, followup chest exam would be recommended to assure that this abnormal parenchymal density clears completely. 2. There is mild right lower lobe atelectasis/infiltrate and small amount of fluid. 3. There is no acute cardiopulmonary abnormality noted otherwise. Dictated on workstation # [id number] Dict: 01/21/18 1152 Trans: 01/21/18 1200 CVB [id number] Interpreted by: RO CHUNG MD Electronically signed by: A/P-Cardiology Assessment/Admission Diagnosis Pneumonia - management per medical services Confusion likely d/t hypoxemia d/t pneumonia Hypokalemia Stress test on August 25, [address] Beltre: revealing diaphragmatic attenuation with increased gastric uptake affecting the quality of images, overall there is reversible ischemia involving the whole inferior wall and inferolateral wall. SSS 21, SDS 10,TID value 1.03. Subsequent cardiac cath by Dr. Aguirre at [facility] in [place], [place] on September 01, 2017: patent stent in the RCA. The right PDA is jailed with the stent but does not appear to hav flow limitation. Nonobstructive coronary atherosclerosis involving the left coronary stystem. LVEDP 22 mmHg. No gradient across the aortic valve. Coronary artery disease, history of acute myocardial infarction in May 2011 at a thrombus in the distal right coronary artery bifurcation point, underwent thrombectomy and stent deployment using 3.0x12 mm Ion stent expanded to 3.13 mm. With no residual stenosis, moderate stenosis in the proximal right coronary artery and moderate stenosis in the mid LAD. Up to 60 percent treated medically. Cardiac catheterization was carried out January 16, 2015 revealing patent stent in the distal RCA. Ostial posterior lateral branch with 90 percent stenosis. Small branch, medical therapy recommended. Mild disease in LAD and circumflex artery. EF 50 percent. Most recent cardiac cath of 2017 is as detailed above Echocardiogram of October [address] Beltre showed LVEF 60%. Mild MR and TR. PASP 25 mmHg H/O syncope, unknown etiology-patient had an unwitnessed syncopal event, he was found unconscious on the garage floor. Questioning possible seizure disorder as patient had been maintained on Keppra after his tumor resection of August 2014 to prevent seizures. It was discontinued July 2015. Underwent extensive workup including 2-D echocardiogram, Holter monitor, carotid duplex. Tilt table test negative. Denies any further episode. Status post tumor resection in August 2014, patient had the surgery in [facility], reported that he had a Meningioma in the brain. Patient was unable to tolerate IIb /IIIa inhibitors, lytic therapy.received multiple treatment and he is scheduled to return to [facility] for evaluation H/O Sinus bradycardia, asymptomatic Hypertension Hyperlipidemia, lipid profile done on August 05, 2017 showing total cholesterol 142, triglyceride 173, HDL 31, LDL 87 History of abdominal aortic aneurysm, underwent endograft stent repair done by Dr. Aparicio in February 2012. ADARSH was significantly abnormal, Dr. Beltre evaluated CT angiogram of the abdominal aorta which was reported as bifurcated stent graft with progressive thrombus within its proximal aortic component and a new complete occlusion of its left iliac limb, increased size of the aneurysmal sac however no endoleak. There is occlusion of the external iliac artery through follow-up its length with reconstruction at the level of the common femoral, mild disease involving the femoral popliteal system with patent 3 vessel runoff bilaterally. Following with Dr. Boland at [facility] in [place], [place] Carotid stenosis, mild bilateral disease, last ultrasound was done in August 2017 Tobaccoism, patient was educated and instructed on smoking cessation. GERD Discussion and Recomendations Pneumonia with management per medical/pulmonary services Poss bronchoscopy planned per pulmonary services OK to hold Plavix d/t last stenting in 2011 Advise continuation of ASA d/t known CAD Continue BB and NJ Continue statin tx Echocardiogram to eval structure and LVEF Monitor lab Replace potassium Further recs will be based on his hospital course We would like to thank medical services for this consult We have discussed his CV status with family and pt and answered their questions Clinical Quality Measures DVT/VTE Risk/Contraindication: Risk Factor Score Per Nursin RFS Level Per Nursing on Admit: 4+=Very High ISABEL KEANE Jan 21, 2018 13:18
[2018-01-21] MEDS ORDERED: RT-ALBUTEROL SULF 2.5 MG/3 ML PRE-MIX VIAL INH PRN ×2 (13:45→18:30)
[2018-01-21 14:56] LABS: BILIRUBIN,URINE NEGATIVE (NEGATIVE); CLARITY,URINE CLEAR; COLOR,URINE YELLOW; GLUCOSE, URINE (UA) NEGATIVE (NEGATIVE); KETONES,URINE NEGATIVE (NEGATIVE); LEUKOCYTE ESTERASE ,URINE 1+ (NEGATIVE); NITRITE,URINE NEGATIVE (NEGATIVE); PH,URINE 5 (5-9); PROTEIN,URINE 2+ (NEGATIVE); UROBILINOGEN,URINE NORMAL (NORMAL)
[2018-01-21] MEDS ORDERED: RT-ALBUTEROL SULF 2.5 MG/3 ML PRE-MIX VIAL INH SCH ×2 (15:00→19:00)
[2018-01-21 15:07] LABS: BACTERIA,URINE NEGATIVE /HPF
--- NOTE | 2018-01-21 15:14 | Consultation-Cardiology ---
HPI-Cardiology Cardiology Consultation: Date of Consultation 01/21/18 Time Seen by a Provider: 14:55 Date of Admission Attending Physician Kassie Ramirez DO Admitting Physician Osmany Jimenez DO Consulting Physician RIYA ZEPEDA MD, FACP, FACC HPI: Chief Complaint: CC: Shortness of breath Mr. Brady is a 72 year old male transferred from [facility] to ICU 6 with pneumonia. Multiple family including spouse at the bedside. They report he began to have increasing SOB on Wednesday with gen weakness. He and family report lose productive cough. The family reports confusion. He was noted to have a temp greater than 100 degrees at home. He was taken to [facility]. He has been receiving IV abx tx, but has not improved. He continues to have SOB. No c/o CP, palpitations, syncope or near syncope. He continues to smoke cigs Review of Systems-Cardiology Review of Systems Constitutional: chills, fever, malaise Eyes: No vision change Ears/Nose/Throat: No epistaxis, No recent hearing loss Respiratory: As described under HPI Cardiovascular: As described under HPI Gastrointestinal: No constipation; nausea; No vomiting Genitourinary: No dysuria, No hematuria Musculoskeletal: no symptoms reported Skin: No rash, No ulcerations Psychiatric/Neurological: other; No anxiety, No depression, No focal weakness, No syncope Hematologic: No bleeding abnormalities All Other Systems Reviewed Negative Unless Noted: Yes [id number]-Tcdzvl Hx Patient Social History Marrital Status: Employed/Student: retired ([employer] service in [place]) Alcohol Use: Past History Recreational Drug Use: No Smoking Status: Current Everyday Smoker Cigaretts per day: 10 Type Used: Cigarettes Recent Foreign Travel: No Recent Infectious Disease Expo: No Physical Abuse Screen: No Sexual Abuse: No Past Medical History PMH As described under Assessment. Family Medical History Family Medical History: Does not report fam h/o early CAD Allergies and Home Medications Allergies Coded Allergies: No Known Drug Allergies (Unverified , 05/16/11) Home Medications Aspirin 81 Mg Tablet.dr, 81 MG PO DAILY, (Reported) Atorvastatin Calcium 80 Mg Tablet, 80 MG PO HS, (Reported) Clopidogrel Bisulfate 75 Mg Tablet, 75 MG PO DAILY, (Reported) Enalapril Maleate 10 Mg Tablet, 10 MG PO BID, (Reported) Levetiracetam 500 Mg Tablet, 1,000 MG PO BID, (Reported) TAKES 2 (500MG) TABLETS Metoprolol Succinate 25 Mg Tab.er.24h, 25 MG PO DAILY, (Reported) [place] 3 Polyunsat Fatty Acids 1,000 Mg Cap, 3,000 MG PO DAILY, (Reported) TAKES 3 (1000MG) CAPSULES Pantoprazole Sodium 40 Mg Tablet.dr, 40 MG PO DAILY, (Reported) Patient Home Medication List Home Medication List Reviewed: Yes Physical Exam-Cardiology Physical Exam Vital Signs/I&O 01/21/18 01/21/18 01/21/18 01/21/18 10:25 10:45 10:48 11:00 Pulse 64 62 64 Resp 11 11 B/P (MAP) 116/65 (82) 106/58 (74) Pulse Ox 94 94 O2 Delivery Nasal Cannula O2 Flow Rate 2.00 01/21/18 01/21/18 01/21/18 01/21/18 11:00 11:15 11:30 11:45 Temp 97.5 Pulse 69 65 66 Resp 15 18 11 B/P (MAP) 106/57 (73) 126/65 (85) Pulse Ox 96 96 98 01/21/18 01/21/18 01/21/18 01/21/18 12:00 12:00 12:00 13:00 Temp 96.0 Pulse 63 64 Resp 17 B/P (MAP) 127/67 (87) Pulse Ox 98 O2 Delivery Nasal Cannula O2 Flow Rate 2.00 01/21/18 01/21/18 01/21/18 01/21/18 13:00 13:40 14:00 14:20 Pulse 64 64 Resp 19 22 B/P (MAP) 116/59 (78) 107/62 (77) Pulse Ox 98 98 98 97 O2 Delivery Nasal Cannula Nasal Cannula O2 Flow Rate 2.00 2.00 01/21/18 14:23 Pulse 67 Resp 21 B/P (MAP) 119/84 (96) Pulse Ox 97 O2 Delivery Nasal Cannula O2 Flow Rate 2.00 Capillary Refill : Less Than 3 Seconds Constitutional: appears stated age, well-developed, well-nourished, other ( Inappropriate conversation at times requiring re-direction; awake, alert and oriented to self and place) HEENT: PERRL, hearing is well preserved, oral hygience is good Neck: No carotid bruit; carotid pulses are 2 + bilaterally Respiratory: No accessory muscle use, No respiratory distress; rhonchi ( scattered), other (diminished bases bilat) Cardiovascular: regular rate-rhythm; No JVD; S1 and S2, systolic murmur Gastrointestinal: No tender; soft, round, audible bowel sounds Rectal: deferred Extremities: no lower extremity edema bilateral Neurologic/Psychiatric: grossly intact, power is 5/5 both on sides Skin: No rash, No ulcerations Data Review Labs Laboratory Tests 01/21/18 11:47: Blood Gas Puncture Site LEFT RAD, Blood Gas Patient Temperature 96.0, Arterial Blood pH 7.43, Arterial Blood Partial Pressure CO2 30L, Arterial Blood Partial Pressure O2 71L, Arterial Blood HCO3 19L, Arterial Blood Total CO2 20.4L, Arterial Blood Oxygen Saturation 96, Arterial Blood Base Excess -4.4L, Steven Test POSITIVE, Blood Gas Ventilator Setting NO, Blood Gas Inspired Oxygen 2 01/21/18 12:00: White Blood Count 8.9, Red Blood Count 4.14L, Hemoglobin 12.4L, Hematocrit 36L, Mean Corpuscular Volume 88, Mean Corpuscular Hemoglobin 30, Mean Corpuscular Hemoglobin Concent 34, Red Cell Distribution Width 15.4H, Platelet Count 193, Mean Platelet Volume 10.8H, Neutrophils (%) (Auto) 80H, Lymphocytes (%) (Auto) 8L, Monocytes (%) (Auto) 12, Eosinophils (%) (Auto) 0, Basophils (%) (Auto) 0, Neutrophils # (Auto) 7.1, Lymphocytes # (Auto) 0.7L, Monocytes # (Auto) 1.1H, Eosinophils # (Auto) 0.0, Basophils # (Auto) 0.0, Sodium Level 139, Potassium Level 3.4L, Chloride Level 110H, Carbon Dioxide Level 22, Anion Gap 7, Blood Urea Nitrogen 11, Creatinine 0.74, Estimat Glomerular Filtration Rate > 60, BUN/ Creatinine Ratio 15, Glucose Level 109H, Lactic Acid Level 1.00, Calcium Level 7.8L, Corrected Calcium 8.7, Total Bilirubin 0.3, Aspartate Amino Transf (AST/ SGOT) 36H, Alanine Aminotransferase (ALT/SGPT) 29, Alkaline Phosphatase 47, Troponin I < 0.30, B-Type Natriuretic Peptide 333.9H, Total Protein 5.5L, Albumin 2.9L 01/21/18 14:49: Urine Color YELLOW, Urine Clarity CLEAR, Urine pH 5, Urine Specific [place] 1.015L, Urine Protein 2+H, Urine Glucose (UA) NEGATIVE, Urine Ketones NEGATIVE, Urine Nitrite NEGATIVE, Urine Bilirubin NEGATIVE, Urine Urobilinogen NORMAL, Urine Leukocyte Esterase 1+H, Urine RBC (Auto) 3+H, Urine RBC 2-5H, Urine WBC 2- 5, Urine Squamous Epithelial Cells NONE, Urine Crystals NONE, Urine Bacteria NEGATIVE, Urine Casts NONE, Urine Mucus NEGATIVE, Urine Culture Indicated NO Laboratory Tests 01/21/18 12:00 A/P-Cardiology Assessment/Admission Diagnosis Pneumonia - management per medical services Confusion likely d/t hypoxemia d/t pneumonia Mild hypokalemia Stress test on August 25, [address] Beltre: revealing diaphragmatic attenuation with increased gastric uptake affecting the quality of images, overall there is reversible ischemia involving the whole inferior wall and inferolateral wall. SSS 21, SDS 10,TID value 1.03. Subsequent cardiac cath by Dr. Aguirre at [facility] in [place], [place] on September 01, 2017: patent stent in the RCA. The right PDA is jailed with the stent but does not appear to hav flow limitation. Nonobstructive coronary atherosclerosis involving the left coronary stystem. LVEDP 22 mmHg. No gradient across the aortic valve. Coronary artery disease, history of acute myocardial infarction in May 2011 at a thrombus in the distal right coronary artery bifurcation point, underwent thrombectomy and stent deployment using 3.0x12 mm Ion stent expanded to 3.13 mm. With no residual stenosis, moderate stenosis in the proximal right coronary artery and moderate stenosis in the mid LAD. Up to 60 percent treated medically. Cardiac catheterization was carried out January 16, 2015 revealing patent stent in the distal RCA. Ostial posterior lateral branch with 90 percent stenosis. Small branch, medical therapy recommended. Mild disease in LAD and circumflex artery. EF 50 percent. Most recent cardiac cath of 2017 is as detailed above Echocardiogram of October [address] Beltre showed LVEF 60%. Mild MR and TR. PASP 25 mmHg H/O syncope, unknown etiology-patient had an unwitnessed syncopal event, he was found unconscious on the garage floor. Questioning possible seizure disorder as patient had been maintained on Keppra after his tumor resection of August 2014 to prevent seizures. It was discontinued July 2015. Underwent extensive workup including 2-D echocardiogram, Holter monitor, carotid duplex. Tilt table test negative. Denies any further episode. Status post tumor resection in August 2014, patient had the surgery in [facility], reported that he had a Meningioma in the brain. Patient was unable to tolerate IIb /IIIa inhibitors, lytic therapy.received multiple treatment and he is scheduled to return to [facility] for evaluation H/O Sinus bradycardia, asymptomatic Hypertension Hyperlipidemia, lipid profile done on August 05, 2017 showing total cholesterol 142, triglyceride 173, HDL 31, LDL 87 History of abdominal aortic aneurysm, underwent endograft stent repair done by Dr. Aparicio in February 2012. ADARSH was significantly abnormal, Dr. Beltre evaluated CT angiogram of the abdominal aorta which was reported as bifurcated stent graft with progressive thrombus within its proximal aortic component and a new complete occlusion of its left iliac limb, increased size of the aneurysmal sac however no endoleak. There is occlusion of the external iliac artery through follow-up its length with reconstruction at the level of the common femoral, mild disease involving the femoral popliteal system with patent 3 vessel runoff bilaterally. Following with Dr. Boland at [facility] in [place], [place] Carotid stenosis, mild bilateral disease, last ultrasound was done in August 2017 Tobaccoism, patient was educated and instructed on smoking cessation. GERD Discussion and Recomendations Pneumonia with management per medical/pulmonary services Poss bronchoscopy planned per pulmonary services OK to hold Plavix d/t last stenting in 2011 Advise continuation of ASA d/t known CAD Continue BB and [place] Continue statin tx Echocardiogram to eval structure and LVEF Monitor lab Replace potassium Further recs will be based on his hospital course We would like to thank medical services for this consult We have discussed his CV status with family and pt and answered their questions Clinical Quality Measures DVT/VTE Risk/Contraindication: Risk Factor Score Per Nursin RFS Level Per Nursing on Admit: 4+=Very High RIYA ZEPEDA MD FACP FAC CCDS Jan 21, 2018 15:14
[2018-01-21] MEDS: ACETAMINOPHEN 500 MG TAB (TYLENOL) PO PRN ×2 (17:03→21:44)
[2018-01-21] MEDS: PIPERACILLIN/TAZO 4.5 GM/NS 100 ML IV SCH ×2 (17:09)
[2018-01-21] MEDS: ALPRAZolam 0.25 MG (XANAX) TAB PO PRN (17:46)
[2018-01-21] MEDS ORDERED: KCL 20 MEQ TAB (K-DUR) PO NR (18:30)
[2018-01-21] MEDS ORDERED: RT-LEVALBUTEROL (XOPENEX) 1.25 MG/3 ML NEB NON-FORMULARY INH PRN (18:45)
[2018-01-21] MEDS ORDERED: RT-LEVALBUTEROL (XOPENEX) 1.25 MG/3 ML NEB NON-FORMULARY INH SCH (19:00)
[2018-01-21] MEDS ORDERED: LIDOCAINE UROJET 2% GEL 10 ML PKG ONE (20:18)
[2018-01-21] MEDS ORDERED: ENALAPRIL 10 MG (VASOTEC) TAB PO SCH (21:00)
[2018-01-21] MEDS: ATORVASTATIN 80 MG (LIPITOR) TABLET PO SCH (21:44)
[2018-01-21] MEDS ORDERED: KETOROLAC 30 MG/ML VIAL ONE (22:57)
[2018-01-21] MEDS ORDERED: KETOROLAC 30 MG/ML VIAL IVP ONE (23:15)
[2018-01-22] VITALS (20 sets, daily range): BP systolic 93–177; BP diastolic 49–90
[2018-01-22] MEDS: VANCOMYCIN INJECTION 1,250 MG in NS (IVPB) 250 ML IV SCH ×3 (00:07→23:46)
[2018-01-22] MEDS: PIPERACILLIN/TAZO 4.5 GM/NS 100 ML IV SCH ×6 (02:27→16:33)
[2018-01-22] MEDS: RT-ALBUTEROL/IPRATROPIUM 3 ML (DUONEB) VIAL INH SCH ×6 (02:33→21:44)
[2018-01-22] MEDS: MAGNESIUM 1 GM/100 ML IVPB 100 ML IV SCH (03:04)
[2018-01-22] MEDS: POTASSIUM CL 10MEQ/50ML IVPB 50 ML IV SCH (03:04)
[2018-01-22] MEDS: KCL 20 MEQ TAB (K-DUR) PO SCH (03:05)
[2018-01-22 04:11] LABS: BASOPHILS % (AUTO) 0 % (0-10); EOSINOPHILS % (AUTO) 0 % (0-10); HEMATOCRIT 32 % (40-54); HEMOGLOBIN 11.2 G/DL (13.3-17.7); LYMPHOCYTES # (AUTO) 1.2 X 10^3 (1.0-4.0); LYMPHOCYTES % (AUTO) 20 % (12-44); MEAN CORPUSCULAR HEMOGLOBIN 31 PG (25-34); MEAN CORPUSCULAR HGB CONC 35 G/DL (32-36); MEAN CORPUSCULAR VOLUME 87 FL (80-99); MEAN PLATELET VOLUME 11.1 FL (7.4-10.4); MONOCYTES # (AUTO) 0.7 X 10^3 (0.0-1.0); MONOCYTES % (AUTO) 12 % (0-12); NEUTROPHILS # (AUTO) 4.2 X 10^3 (1.8-7.8); NEUTROPHILS % (AUTO) 67 % (42-75); PLATELET COUNT 155 10^3/uL (130-400); RED BLOOD COUNT 3.65 10^6/uL (4.35-5.85); RED CELL DISTRIBUTION WIDTH 15.1 % (10.0-14.5); WHITE BLOOD COUNT 6.2 10^3/uL (4.3-11.0)
[2018-01-22 04:38] LABS: ALANINE AMINOTRANSFERASE 39 U/L (0-55); ALBUMIN 2.6 GM/DL (3.2-4.5); ALKALINE PHOSPHATASE 45 U/L (40-136); BILIRUBIN,TOTAL 0.3 MG/DL (0.1-1.0); BUN/CREATININE RATIO 13; CALCIUM 7.5 MG/DL (8.5-10.1); CARBON DIOXIDE 17 MMOL/L (21-32); CHLORIDE 114 MMOL/L (98-107); CREATININE SERUM 0.76 MG/DL (0.60-1.30); GFR ESTIMATED > 60; GLUCOSE 121 MG/DL (70-105); MAGNESIUM 1.4 MG/DL (1.8-2.4); POTASSIUM 3.5 MMOL/L (3.6-5.0); SODIUM 139 MMOL/L (135-145)
--- NOTE | 2018-01-22 06:38 | Diagnostic Imaging Report ---
EXAMINATION: Portable AP chest obtained at 318h. INDICATION: Dyspnea The heart size is at the upper limits of normal but stable when compared to the prior chest exam of 01/16/2015. The CT chest exam performed on 01/21/2018 did note a prominent area of pneumonia/atelectasis involving the left lung base and mild right lower lobe pneumonia/atelectasis in the interval since the previous exam. The density in the left lower lobe does appear to have increased somewhat. The left upper lung and the visualized right lung are generally clear. The mediastinum is not widened. The osseous structures are intact. IMPRESSION: The appearance of the chest has worsened since the prior study as there does appear to be a greater involvement of the left lung base by pneumonia/atelectasis. A followup study would be recommended for continued evaluation. Dictated by: Dictated on workstation # [id number]
--- NOTE | 2018-01-22 06:58 | Pulmonary Progress Note ---
Sepsis Event Evaluation Height, Weight, BMI Height: 5'5.00" Weight: 177lbs. 0.0oz. 80.746363ri; 29.5 BMI Method:Stated Focused Exam Lactate Level 01/21/18 12:00: Lactic Acid Level 1.00 Exam Exam Vital Signs Date Time Temp Pulse Resp B/P (MAP) Pulse Ox O2 Delivery O2 Flow Rate FiO2 01/22/18 05:01 66 11 102/62 (75) 99 Vapotherm 40.00 3.00 01/22/18 04:29 97.7 01/22/18 04:00 96 Vapotherm 15.00 45 01/22/18 04:00 68 23 109/58 (75) 100 Vapotherm 40.00 3.00 01/22/18 03:00 72 15 99/49 (66) 99 Vapotherm 40.00 3.00 01/22/18 02:33 100 Vapotherm 15.00 45 01/22/18 02:00 63 17 93/56 (68) 100 Vapotherm 40.00 3.00 01/22/18 02:00 98.0 01/22/18 01:00 70 22 101/56 (71) 97 Vapotherm 45.00 15.00 01/22/18 01:00 70 01/22/18 00:09 99.5 01/22/18 00:00 95 Vapotherm 15.00 45 01/22/18 00:00 71 24 102/53 (69) 96 Vapotherm 45.00 15.00 01/21/18 23:40 100.6 01/21/18 23:03 111 100 36 01/21/18 23:00 75 22 130/70 (90) 99 Vapotherm 45.00 15.00 01/21/18 22:36 101.6 01/21/18 22:00 90 23 143/73 (96) 99 Vapotherm 45.00 15.00 01/21/18 21:35 102.5 01/21/18 21:00 92 16 138/70 (92) 97 Vapotherm 45.00 15.00 01/21/18 20:44 101.3 103 27 161/74 (103) 99 Vapotherm 45.00 15.00 01/21/18 20:28 100 Nasal Cannula 4.00 01/21/18 20:00 90 20 161/74 (103) 97 Vapotherm 45.00 15.00 01/21/18 20:00 96 Vapotherm 15.00 45 01/21/18 19:00 83 27 131/66 (87) 96 Nasal Cannula 2.00 01/21/18 19:00 83 01/21/18 18:44 100.6 79 17 122/62 (82) 97 Nasal Cannula 2.00 01/21/18 18:17 101.2 89 14 125/68 (87) 99 Nasal Cannula 2.00 01/21/18 17:55 101.6 92 21 103/61 (75) 99 Nasal Cannula 2.00 01/21/18 17:48 102.4 92 28 98 Nasal Cannula 2.00 01/21/18 17:46 102.4 01/21/18 17:03 101.8 01/21/18 17:00 104 22 98 Nasal Cannula 2.00 01/21/18 16:58 101.8 95 13 115/69 (84) 100 Nasal Cannula 2.00 01/21/18 16:02 Nasal Cannula 2.00 01/21/18 16:00 78 24 99 Nasal Cannula 2.00 01/21/18 15:44 99.0 84 18 138/87 (104) 96 Nasal Cannula 2.00 01/21/18 15:00 69 22 144/87 (106) 95 Nasal Cannula 2.00 01/21/18 14:23 67 21 119/84 (96) 97 Nasal Cannula 2.00 01/21/18 14:20 97 Nasal Cannula 2.00 01/21/18 14:00 64 22 107/62 (77) 98 01/21/18 13:40 98 Nasal Cannula 2.00 01/21/18 13:00 64 19 116/59 (78) 98 01/21/18 13:00 64 01/21/18 12:00 96.0 01/21/18 12:00 63 17 127/67 (87) 98 01/21/18 12:00 Nasal Cannula 2.00 01/21/18 11:45 66 11 126/65 (85) 98 01/21/18 11:30 65 18 106/57 (73) 96 01/21/18 11:15 69 15 96 01/21/18 11:00 97.5 01/21/18 11:00 64 11 106/58 (74) 94 01/21/18 10:48 62 01/21/18 10:45 64 11 116/65 (82) 94 01/21/18 10:25 Nasal Cannula 2.00 I & O 01/22/18 07:00 Intake Total 1165 ml Output Total 850 ml Balance 315 ml Height & Weight Height: 5'5.00" Weight: 177lbs. 0.0oz. 80.237673xs; 29.5 BMI Method:Stated General Appearance: No Apparent Distress, WD/WN, Chronically ill HEENT: PERRL/EOMI, TMs Normal, Normal ENT Inspection, Pharynx Normal Neck: Full Range of Motion, Normal Inspection, Non Tender, Supple, Carotid Bruit Respiratory: Chest Non Tender, No Accessory Muscle Use, No Respiratory Distress , Decreased Breath Sounds, Wheezing (left) Cardiovascular: Regular Rate, Rhythm, No Edema, No Gallop, No JVD, No Murmur, Normal Peripheral Pulses Capillary Refill: Less Than 3 Seconds Extremity: Normal Capillary Refill, Normal Inspection, Normal Range of Motion, Non Tender, No Calf Tenderness, No Pedal Edema Neurologic/Psychiatric: Alert, Oriented x3, No Motor/Sensory Deficits, Normal Mood/Affect Skin: Normal Color, Warm/Dry Lymphatic: No Adenopathy Results Lab Laboratory Tests 01/21/18 12:00 01/22/18 04:02 Assessment/Plan Assessment/Plan pneumonia - -CT of chest reviewed shows LLL pneumonia -Continue vanco and zosyn -PT will probably need bronchoscopy -Pt is currently on Plavix so it would be better to wait 5 days until he is off plavix Tobacco use Hypokalemia, hypophos -replace Anxiety -Start Risperdal 0.5mg BID -Start morphine for air hunger JB SAINI DO Jan 22, 2018 6:58 am
[2018-01-22] MEDS ORDERED: morphine INJ 4 MG/ML 1 ML (VIAL/SYRINGE) IVP PRN (07:00)
[2018-01-22] MEDS ORDERED: POTASSIUM PHOSPHATE INJ 30 MM in NS (IVPB) 250 ML IV ONE (07:00)
[2018-01-22] MEDS: PANTOPRAZOLE 40 MG (PROTONIX) TAB PO SCH (07:57)
--- NOTE | 2018-01-22 08:33 | Progress Note-Hospitalist ---
Subjective HPI/CC On Admission Date Seen by Provider: Jan 22, 2018 Time Seen by Provider: 08:26 CC: Left side pneumonia, failed antibiotics at [facility] HPI: This is a 72 yo male directly admitted from Dr. Jimenez at [facility] where he was admitted for a left sided pneumonia that was not resolving despite IV antibiotics. Patient is confused about his condition making him a poor historian. States he was admitted Wednesday for a fever. Per records from [facility]: also admits he has had a cough, congestion, and fatigue. Focused Exam Lactate Level 01/21/18 12:00: Lactic Acid Level 1.00 Objective Exam Vital Signs Vital Signs Date Time Temp Pulse Resp B/P (MAP) Pulse Ox O2 Delivery O2 Flow Rate FiO2 01/23/18 11:15 96.8 01/23/18 11:00 80 19 120/70 (87) 94 Nasal Cannula 3.00 01/22/18 08:05 35 Capillary Refill : Less Than 3 Seconds General Appearance: No Apparent Distress, WD/WN Respiratory: Lungs Clear, No Respiratory Distress Cardiovascular: Regular Rate, Rhythm, No Murmur Gastrointestinal: Normal Bowel Sounds, Non Tender, Soft Extremity: No Calf Tenderness, No Pedal Edema Neurologic/Psychiatric: Alert, Oriented x3, Other (flat affect) Results/Procedures Lab Laboratory Tests 01/23/18 03:07 Patient resulted labs reviewed. Assessment/Plan Assessment and Plan Assess & Plan/Chief Complaint Pneumonia Diagnosis/Problems Diagnosis/Problems (1) Pneumonia Status: Acute Assessment & Plan: Await cultures from [place] Continue on Vanc and Zosyn Will likely need bronch but wait from Plavix to be off for 5 days Qualifiers: Pneumonia type: due to unspecified organism Laterality: left Lung location: unspecified part of lung Qualified Codes: J18.9 - Pneumonia, unspecified organism (2) Hypertension Status: Chronic Assessment & Plan: Low to normal Hold home BP meds Qualifiers: Hypertension type: essential hypertension Qualified Codes: I10 - Essential (primary) hypertension (3) CAD (coronary artery disease) Status: Chronic Assessment & Plan: Continue on ASA Hold plavix for potential bronch Qualifiers: Coronary Disease-Associated Artery/Lesion type: [place] artery [place] vs. transplanted heart: [place] heart Associated angina: without angina Qualified Codes: I25.10 - Atherosclerotic heart disease of [place] coronary artery without angina pectoris Clinical Quality Measures DVT/VTE Risk/Contraindication: Risk Factor Score Per Nursin RFS Level Per Nursing on Admit: 4+=Very High KORI CLOUD MD Jan 22, 2018 08:33
[2018-01-22] MEDS: risperiDONE 1 MG (RisperDAL) TAB PO SCH ×2 (09:19→21:39)
[2018-01-22] MEDS: ASPIRIN E.C. 81 MG (ECOTRIN) TAB PO SCH (09:19)
[2018-01-22] MEDS: NS IV 1000 ML 1,000 ML IV SCH ×2 (09:27→17:38)
--- NOTE | 2018-01-22 09:33 | Occupational Therapy Eval ---
OT Evaluation-General/PLF Medical Diagnosis Admission Date Jan 21, 2018 at 10:26 Medical Diagnosis: Left side pneumonia with failed antibiotics Onset Date: Jan 21, 2018 Therapy Diagnosis Therapy Diagnosis: Weakness, Debility Height/Weight Height (Feet): 5 Height (Inches): 5.00 Weight (Pounds): 181 Weight (Ounces): 0.0 Precautions Precautions/Isolations: Fall Prevention, Standard Precautions Safety Interventions: Bed Exit Alarm Weight Bear Status Weight Bearing Restriction: Weight Bearing/Tolerated Referral Referral Reason: Activity Tolerance, Self Care, Evaluation/Treatment, Strengthening/ROM Medical History Pertinent Medical History: CAD, HTN Additional Medical History Pt with history of brain meningioma in 2014. Social History Home: Multilevel Current Living Status: Other Family Steps Into Home: 4 Steps Inside Home: 1 ADL-Prior Level of Function Pt was totally independent with all ADLs and IADLs prior to onset of pneumonia. Pt did not require use of UE support for functional ambulation. DME/Equipment: Bath Chair, Grab Bars Drive Self: Yes OT Current Status Subjective Pt alert and oriented upon therapist arrival. Pt was a patient at [facility] for onset of pneumonia, where he had a failed round of antibiotics. The pt is reporting no pain or shortness of breath this date. Mental Status/Objective Patient Orientation: Person, Place, Time, Eyes Open, Situation Attachments: Rubi Catheter, IV, Oxygen Current Upper Extremity ROM WNL Upper Extremity Coordination WNL Upper Extremity Sensation WNL Upper Extremity Strength 4-/5 grossly ADL-Treatment Functional [place] Measure 0=Not Assessed/NA 4=Minimal Assistance 1=Total Assistance 5=Supervision or Setup 2=Maximal Assistance 6=Modified [place] 3=Moderate Assistance 7=Complete IndependenceIRFPAI Quality Coding Scale 6 Independent with activity with or without an assistive device 5 Patient requires set up or clean up by helper. Patient completes activity by themselves 4 Supervision or touching assist (CGA). [place] provide cues , steadying assist 3 The helper provides less than half the effort to complete the activity 2 The helper provides more than half the effort to complete the activity 1 Dependent. The helper does all the effort to complete an activity 7 Patient refused to complete or attempt activity 9 The patient did not perform the activity before the current illness or injury 88 Not attempted due to Medical conditions or safety concerns Grooming (FIM): 4 Bathing (FIM): 4 Bathing Location: L Arm, R Arm, Chest, Abdomen Transfers (B, C, W/C) (FIM): 4 Education OT Patient Education: Correct positioning, Energy conservation, Exercise program, Modified ADL techniques, Purpose of tx/functional activities, Reviewed precautions, Rehab process, Safety issues, Transfer techniques Teaching Recipient: Patient Teaching Methods: Demonstration, Discussion Response to Teaching: Verbalize Understanding, Return Demonstration OT Short Term Goals Short Term Goals Time Frame: Jan 28, 2018 Grooming(FIM): 6 Bathing(FIM): 6 Upper Body Dressing(FIM): 6 Transfers (B,C,W/C) (FIM): 6 1=Demonstrate adherence to instructed precautions during ADL tasks. 2=Patient will verbalize/demonstrate understanding of assistive devices/ modifications for ADL. 3=Patient will improve strength/tolerance for activity to enable patient to perform ADL's. OT Cabin Equipment Supervisor Goals Cabin Equipment Supervisor Goals Time Frame: Feb 04, 2018 Grooming(FIM): 7 Upper Body Dressing(FIM): 7 Lower Body Dressing(FIM): 7 Toileting(FIM): 7 Transfers (B,C,W/C) (FIM): 7 Additional Goals: 1-Demonstrate ADL Tasks 1=Demonstrate adherence to instructed precautions during ADL tasks. 2=Patient will verbalize/demonstrate understanding of assistive devices/ modifications for ADL. 3=Patient will improve strength/tolerance for activity to enable patient to perform ADL's. OT Education/Plan Problem List/Assessment Assessment: Decreased Activ Tolerance, Decreased Safety Aware, Decreased UE Strength, Impaired Funct Balance Discharge Recommendations Plan/Recommendations: Continue POC Therapy D/C Recommendations: 24 hr Supervision Treatment Plan/Plan of Care Patient would benefit from OT for education, treatment and training to promote independence in ADL's, mobility, safety and/or upper extremity function for ADL' s. Treatment Duration: Feb 04, 2018 Frequency: At least 5 of 7 days/Wk (IRF) Estimated Hrs Per Day: .25 hour per day Rehab Potential: Good Time/GCodes Start Time: 09:10 Stop Time: 09:40 Billed Treatment Time GENO, FA2 BEATRICE DUGAN OT Jan 22, 2018 09:33
[2018-01-22] MEDS: ENOXAPARIN 40 MG/0.4 ML (LOVENOX) SYR SC SCH (10:23)
[2018-01-22] MEDS ORDERED: TROUGH ORDER-PHARMACY XX ONE (10:30)
--- NOTE | 2018-01-22 10:31 | Physical Therapy Evaluation ---
PT Evaluation-General Medical Diagnosis Admission Date Jan 21, 2018 at 10:26 Medical Diagnosis: Left side pneumonia with failed antibiotics Onset Date: Jan 21, 2018 Therapy Diagnosis Therapy Diagnosis: debility Height/Weight Height (Feet): 5 Height (Inches): 5.00 Weight (Pounds): 181 Weight (Ounces): 0.0 Precautions Precautions/Isolations: Fall Prevention, Standard Precautions Weight Bear Status Right Lower Extremity: Right Weight Bearing/Tolerated Left Lower Extremity: Left Weight Bearing/Tolerated Referral Physician: Carlito Reason for Referral: Evaluation/Treatment Medical History Pertinent Medical History: CAD, HTN Additional Medical History brain meningioma removed 2014, CAD, HI, high cholesterol, HTN, aneurism (L) LE, stent, GERD, hiatal hernia, gall bladder disease Current History Admitted for (L) pneumonia Reviewed History: Yes Social History Home: Multilevel Current Living Status: Other Family PT Steps Into Home: 4 PT Steps Inside Home: 1 Prior/Core FIM Prior Level of Function Functional [place] Measure 0=Not Assessed/NA 4=Minimal Assistance 1=Total Assistance 5=Supervision or Setup 2=Maximal Assistance 6=Modified [place] 3=Moderate Assistance 7=Complete [place] Bed Mobility: 7 Transfers (B,C,W/C) (FIM): 7 Gait: 7 PT Evaluation-Current Subjective Pt agreeable. Denies pain. Objective Patient Orientation: Person, Place, Time, Situation Problem Solving: Good multiple lines ROM/Strength ROM Upper Extremities See OT ROM Lower Extremities WFL for functional mobility Strength Upper Extremities See OT Strength Lower Extremities grossly 4/5 Integumentary/Posture Integumentary See nurses' notes Bladder Incontinence: Rubi Cath Neuromuscular (Tone, Coordination, Reflexes) grossly intact Sensory Vision: Wears Glasses Hearing: Functional Transfers Functional [place] Measure 0=Not Assessed/NA 4=Minimal Assistance 1=Total Assistance 5=Supervision or Setup 2=Maximal Assistance 6=Modified [place] 3=Moderate Assistance 7=Complete [place] Supine to/from Sit: 5 Sit to/from Stand: 5 bed->recliner SPT with CGA x 1 Balance Sitting Static: Normal Sitting Dynamic: Good Standing Static: Fair Standing Dynamic: Fair Treatment Eval. Up in chair with personal alarm activated, needs met. Assessment/Needs Pt would benefit from short term PT to restore functional mobility. Continue to assess as Pt's functional mobility significantly limited by multiple lines at this time. Rehab Potential: Good PT Short Term Goals Short Term Goals Time Frame: Jan 25, 2018 Transfers (B,C,W/C) (FIM): 6 PT Water Resource Agent Goals Retirement Goals PT Water Resource Agent Goals Time Frame: Feb 05, 2018 Gait (FIM): 6 Gait distance (FIM): 3=150 ft Distance: 150 Gait Level of Assist: 6 Gait Assistive Device: None Stairs (FIM): 5 # of Steps: 4 Stairs Level Of Assist: 6 PT goals established to allow safe return home with family. PT Plan Problem List Problem List: Activity Tolerance, Functional Strength, Safety, Balance, Gait, Transfer, Bed Mobility Treatment/Plan Treatment Plan: Continue Plan of Care Treatment Plan: Bed Mobility, Education, Functional Activity Tra, Functional Strength, Gait, Safety, Therapeutic Exercise, Transfers Treatment Duration: Feb 05, 2018 Frequency: 6 times per week Estimated Hrs Per Day: .25 hour per day Patient and/or Family Agrees t: Yes Safety Risks/Education Patient Education: Issued Written HEP Teaching Recipient: Patient Teaching Methods: Discussion Response to Teaching: Verbalize Understanding Educated on PT POC Discharge Recommendations Therapy D/C Recommendations: Home w/ Family Support Time/GCodes Time In: 0946 Time Out: 1007 Total Billed Treatment Time: 21 Total Billed Treatment 1, EVMODC x 21' G Codes Necessary: No CAMILLE FLOOD DPArian Jan 22, 2018 10:31
--- NOTE | 2018-01-22 12:57 | Progress Note-Cardiology ---
Cardiology SOAP Progress Note Subjective: No cp or palp or syncope Malaise and shortness of breath persistent with only modest improvement Objective: I&O/Vital Signs 01/22/18 01/22/18 01/22/18 01/22/18 01:00 01:00 02:00 02:00 Temp 98.0 Pulse 70 70 63 Resp 22 17 B/P (MAP) 101/56 (71) 93/56 (68) Pulse Ox 97 100 O2 Delivery Vapotherm Vapotherm O2 Flow Rate 45.00 40.00 15.00 3.00 01/22/18 01/22/18 01/22/18 01/22/18 02:33 03:00 04:00 04:00 Pulse 72 68 Resp 15 23 B/P (MAP) 99/49 (66) 109/58 (75) Pulse Ox 100 99 100 96 O2 Delivery Vapotherm Vapotherm Vapotherm Vapotherm O2 Flow Rate 15.00 40.00 40.00 15.00 3.00 3.00 FiO2 45 45 01/22/18 01/22/18 01/22/18 01/22/18 04:29 05:01 07:00 07:12 Temp 97.7 Pulse 66 61 Resp 11 B/P (MAP) 102/62 (75) Pulse Ox 99 100 O2 Delivery Vapotherm Vapotherm O2 Flow Rate 40.00 10.00 3.00 FiO2 35 01/22/18 01/22/18 01/22/18 01/22/18 08:05 08:05 09:21 10:24 Temp 96.8 Pulse 67 84 70 Resp 18 14 B/P (MAP) 120/66 (84) 130/66 (87) 142/70 (94) Pulse Ox 100 93 99 O2 Delivery Vapotherm Vapotherm Vapotherm Vapotherm O2 Flow Rate 35.00 10.00 35.00 35.00 10.00 10.00 10.00 FiO2 35 01/22/18 01/22/18 01/22/18 10:40 11:21 11:28 Pulse 72 Resp 22 B/P (MAP) 124/66 (85) Pulse Ox 100 100 O2 Delivery Nasal Cannula Nasal Cannula Nasal Cannula O2 Flow Rate 3.00 3.00 3.00 01/22/18 00:00 Intake Total 965 ml Output Total 550 ml Balance 415 ml Weight (Pounds): 181 Weight (Ounces): 0.0 Weight (Calculated Kilograms): 82.231271 Constitutional: appears stated age, well-developed, well-nourished, other ( Inappropriate conversation at times requiring re-direction; awake, alert and oriented to self and place) Respiratory: No accessory muscle use, No respiratory distress; rhonchi ( scattered), other (diminished bases bilat) Cardiovascular: regular rate-rhythm; No JVD; S1 and S2, systolic murmur Gastrointestional: No tender; soft, round, audible bowel sounds Extremities: no lower extremity edema bilateral Neurologic/Psychiatric: grossly intact, power is 5/5 both on sides Skin: No rash, No ulcerations Results/Procedures: Labs Laboratory Tests 01/21/18 14:49: Urine Color YELLOW, Urine Clarity CLEAR, Urine pH 5, Urine Specific [place] 1.015L, Urine Protein 2+H, Urine Glucose (UA) NEGATIVE, Urine Ketones NEGATIVE, Urine Nitrite NEGATIVE, Urine Bilirubin NEGATIVE, Urine Urobilinogen NORMAL, Urine Leukocyte Esterase 1+H, Urine RBC (Auto) 3+H, Urine RBC 2-5H, Urine WBC 2- 5, Urine Squamous Epithelial Cells NONE, Urine Crystals NONE, Urine Bacteria NEGATIVE, Urine Casts NONE, Urine Mucus NEGATIVE, Urine Culture Indicated NO 01/22/18 04:02: White Blood Count 6.2, Red Blood Count 3.65L, Hemoglobin 11.2L, Hematocrit 32L, Mean Corpuscular Volume 87, Mean Corpuscular Hemoglobin 31, Mean Corpuscular Hemoglobin Concent 35, Red Cell Distribution Width 15.1H, Platelet Count 155, Mean Platelet Volume 11.1H, Neutrophils (%) (Auto) 67, Lymphocytes (%) (Auto) 20 , Monocytes (%) (Auto) 12, Eosinophils (%) (Auto) 0, Basophils (%) (Auto) 0, Neutrophils # (Auto) 4.2, Lymphocytes # (Auto) 1.2, Monocytes # (Auto) 0.7, Eosinophils # (Auto) 0.0, Basophils # (Auto) 0.0, Sodium Level 139, Potassium Level 3.5L, Chloride Level 114H, Carbon Dioxide Level 17L, Anion Gap 8, Blood Urea Nitrogen 10, Creatinine 0.76, Estimat Glomerular Filtration Rate > 60, BUN/ Creatinine Ratio 13, Glucose Level 121H, Calcium Level 7.5L, Corrected Calcium 8.6, Phosphorus Level 2.0L, Magnesium Level 1.4L, Total Bilirubin 0.3, Aspartate Amino Transf (AST/SGOT) 47H, Alanine Aminotransferase (ALT/SGPT) 39, Alkaline Phosphatase 45, Total Protein 5.0L, Albumin 2.6L 01/22/18 10:40: Vancomycin Level Trough 12.7 Laboratory Tests 01/21/18 12:00 01/22/18 04:02 A/P: Assessment: Pneumonia - management is [place] [facility] [place] intrermittent confusion likely d/t hypoxemia d/t pneumonia Mild hypokalemia Stress test on August 25, [address] Beltre: revealing diaphragmatic attenuation with increased gastric uptake affecting the quality of images, overall there is reversible ischemia involving the whole inferior wall and inferolateral wall. SSS 21, SDS 10,TID value 1.03. Subsequent cardiac cath by Dr. Aguirre at [facility] in [place], [place] on September 01, 2017: patent stent in the RCA. The right PDA is jailed with the stent but does not appear to have flow limitation. Nonobstructive coronary atherosclerosis involving the left coronary stystem. LVEDP 22 mmHg. No gradient across the aortic valve. Coronary artery disease, history of acute myocardial infarction in May 2011 at a thrombus in the distal right coronary artery bifurcation point, underwent thrombectomy and stent deployment using 3.0x12 mm Ion stent expanded to 3.13 mm. With no residual stenosis, moderate stenosis in the proximal right coronary artery and moderate stenosis in the mid LAD. Up to 60 percent treated medically. Cardiac catheterization was carried out January 16, 2015 revealing patent stent in the distal RCA. Ostial posterior lateral branch with 90 percent stenosis. Small branch, medical therapy recommended. Mild disease in LAD and circumflex artery. EF 50 percent. Most recent cardiac cath of 2017 is as detailed above Echocardiogram of 01/21/18: LVEF 60-65%, no RWMA, mild dilatation of LA, PASP 35 mmHg, AoV sclerosis w/o stenosis H/o syncope vs seizure, none recently, followed and treated by Dr Beltre and pcp H/o meningioma resection at [place], [place] in 2014 H/o sinus bradycardia, asymptomatic Hypertension Hyperlipidemia History of abdominal aortic aneurysm, underwent endograft stent repair done by Dr. Aparicio in February 2012. ADARSH was significantly abnormal, Dr. Beltre evaluated CT angiogram of the abdominal aorta which was reported as bifurcated stent graft with progressive thrombus within its proximal aortic component and a new complete occlusion of its left iliac limb, increased size of the aneurysmal sac however no endoleak. There is occlusion of the external iliac artery through follow-up its length with reconstruction at the level of the common femoral, mild disease involving the femoral popliteal system with patent 3 vessel runoff bilaterally. Following with Dr. Boland at [facility] in [place], [place] Carotid stenosis, mild bilateral disease, last ultrasound was done in August 2017 Chronic tobacco use, advised to quit GERD Plan: * I discussed his CV issues with him and the results of recent echo * Continue current card regimen * Replenish K * Follow labs * Risk factor mod discussed, advised to refrain from tobacco use RIYA ZEPEDA MD FACP FAC CCDS Jan 22, 2018 12:57
[2018-01-22] MEDS: ALPRAZolam 0.25 MG (XANAX) TAB PO PRN (18:27)
[2018-01-22] MEDS: ACETAMINOPHEN 500 MG TAB (TYLENOL) PO PRN (18:27)
[2018-01-22] MEDS: ATORVASTATIN 80 MG (LIPITOR) TABLET PO SCH (21:39)
[2018-01-23] VITALS (20 sets, daily range): BP systolic 120–174; BP diastolic 56–102
[2018-01-23] MEDS: PIPERACILLIN/TAZO 4.5 GM/NS 100 ML IV SCH ×6 (01:16→17:17)
[2018-01-23] MEDS: RT-ALBUTEROL/IPRATROPIUM 3 ML (DUONEB) VIAL INH SCH ×6 (02:21→21:19)
[2018-01-23] MEDS: NS IV 1000 ML 1,000 ML IV SCH ×3 (03:14→17:18)
[2018-01-23] MEDS: ACETAMINOPHEN 500 MG TAB (TYLENOL) PO PRN (03:22)
[2018-01-23 03:40] LABS: BASOPHILS % (AUTO) 0 % (0-10); EOSINOPHILS # (AUTO) 0.1 10^3/uL (0.0-0.3); EOSINOPHILS % (AUTO) 2 % (0-10); HEMATOCRIT 36 % (40-54); HEMOGLOBIN 12.1 G/DL (13.3-17.7); LYMPHOCYTES # (AUTO) 1.3 X 10^3 (1.0-4.0); LYMPHOCYTES % (AUTO) 18 % (12-44); MEAN CORPUSCULAR HEMOGLOBIN 29 PG (25-34); MEAN CORPUSCULAR HGB CONC 34 G/DL (32-36); MEAN CORPUSCULAR VOLUME 87 FL (80-99); MEAN PLATELET VOLUME 11.2 FL (7.4-10.4); MONOCYTES # (AUTO) 0.9 X 10^3 (0.0-1.0); MONOCYTES % (AUTO) 13 % (0-12); NEUTROPHILS # (AUTO) 4.7 X 10^3 (1.8-7.8); NEUTROPHILS % (AUTO) 68 % (42-75); PLATELET COUNT 203 10^3/uL (130-400); RED BLOOD COUNT 4.11 10^6/uL (4.35-5.85); RED CELL DISTRIBUTION WIDTH 15.8 % (10.0-14.5)
[2018-01-23 04:06] LABS: BUN/CREATININE RATIO 9; CALCIUM 8.1 MG/DL (8.5-10.1); CARBON DIOXIDE 19 MMOL/L (21-32); CHLORIDE 111 MMOL/L (98-107); CREATININE SERUM 0.77 MG/DL (0.60-1.30); GFR ESTIMATED > 60; GLUCOSE 83 MG/DL (70-105); MAGNESIUM 1.3 MG/DL (1.8-2.4); PHOSPHORUS 2.3 MG/DL (2.3-4.7); POTASSIUM 3.4 MMOL/L (3.6-5.0); SODIUM 141 MMOL/L (135-145)
[2018-01-23] MEDS ORDERED: KCL 20 MEQ TAB (K-DUR) PO ONE (05:00)
[2018-01-23] MEDS: MAGNESIUM 1 GM/100 ML IVPB 100 ML IV SCH ×5 (05:02→08:50)
[2018-01-23] MEDS: POTASSIUM CL 10MEQ/50ML IVPB 50 ML IV SCH (06:00)
--- NOTE | 2018-01-23 06:12 | Pulmonary Progress Note ---
Subjective Time Seen by a Provider: 06:11 Subjective/Events-last exam PT is feeling better Sepsis Event Evaluation Height, Weight, BMI Height: 5'5.00" Weight: 181lbs. 0.0oz. 82.475842gl; 29.5 BMI Method:Stated Focused Exam Lactate Level 01/21/18 12:00: Lactic Acid Level 1.00 Exam Exam Vital Signs Date Time Temp Pulse Resp B/P (MAP) Pulse Ox O2 Delivery O2 Flow Rate FiO2 01/23/18 05:00 81 20 144/73 (96) 91 Nasal Cannula 3.00 01/23/18 04:00 100.5 01/23/18 04:00 100.5 01/23/18 04:00 Nasal Cannula 3.00 01/23/18 04:00 82 28 131/68 (89) 91 Nasal Cannula 3.00 01/23/18 03:22 99.5 01/23/18 03:22 99.5 01/23/18 03:00 81 27 165/79 (107) 93 Nasal Cannula 3.00 01/23/18 02:21 94 Nasal Cannula 3.00 01/23/18 02:00 66 27 151/56 (87) 92 Nasal Cannula 3.00 01/23/18 01:00 75 10 144/57 (86) 90 Nasal Cannula 3.00 01/23/18 01:00 81 01/23/18 00:00 Nasal Cannula 2.00 01/23/18 00:00 98.2 71 24 144/78 (100) 93 Nasal Cannula 2.00 01/22/18 23:55 74 13 90 Nasal Cannula 2.00 01/22/18 23:00 76 24 122/60 (80) 95 Nasal Cannula 1.00 01/22/18 22:42 98.0 01/22/18 22:00 78 24 119/61 (80) 96 Nasal Cannula 1.00 01/22/18 21:44 97 Nasal Cannula 1.00 01/22/18 21:28 99.3 01/22/18 21:00 78 20 99/80 (86) 95 Nasal Cannula 1.00 01/22/18 20:00 Nasal Cannula 1.00 01/22/18 20:00 100.3 86 11 114/52 (72) 94 Nasal Cannula 1.00 01/22/18 19:31 100.6 01/22/18 19:25 94 10 98 Nasal Cannula 1.00 01/22/18 19:18 95 Nasal Cannula 2.00 01/22/18 19:17 Nasal Cannula 3.00 01/22/18 19:00 76 01/22/18 19:00 76 31 168/67 (100) 96 Nasal Cannula 2.00 01/22/18 18:28 100.3 01/22/18 18:07 100.5 01/22/18 17:38 83 20 177/90 (119) 93 Nasal Cannula 2.00 01/22/18 15:47 98.5 71 21 165/72 (103) 98 Nasal Cannula 2.00 01/22/18 15:22 Nasal Cannula 3.00 01/22/18 14:53 94 Nasal Cannula 3.00 01/22/18 14:39 97.7 01/22/18 14:00 73 11 155/87 (109) 99 Nasal Cannula 3.00 01/22/18 13:19 97.7 73 19 144/77 (99) 97 Nasal Cannula 3.00 01/22/18 13:00 71 01/22/18 12:30 73 10 137/56 (83) 98 Nasal Cannula 3.00 01/22/18 11:28 Nasal Cannula 3.00 01/22/18 11:21 72 22 124/66 (85) 100 Nasal Cannula 3.00 01/22/18 10:40 100 Nasal Cannula 3.00 01/22/18 10:24 70 14 142/70 (94) 99 Vapotherm 35.00 10.00 01/22/18 09:21 84 130/66 (87) 93 Vapotherm 35.00 10.00 01/22/18 08:05 Vapotherm 10.00 35 01/22/18 08:05 96.8 67 18 120/66 (84) 100 Vapotherm 35.00 10.00 01/22/18 07:12 100 Vapotherm 10.00 35 01/22/18 07:00 61 I & O 01/23/18 07:00 Intake Total 4627.5 ml Output Total 2700 ml Balance 1927.5 ml Height & Weight Height: 5'5.00" Weight: 181lbs. 0.0oz. 82.533827xl; 29.5 BMI Method:Stated General Appearance: No Apparent Distress, WD/WN, Chronically ill HEENT: PERRL/EOMI, TMs Normal, Normal ENT Inspection, Pharynx Normal Neck: Full Range of Motion, Normal Inspection, Non Tender, Supple, Carotid Bruit Respiratory: Chest Non Tender, No Accessory Muscle Use, No Respiratory Distress , Decreased Breath Sounds, Wheezing (left) Cardiovascular: Regular Rate, Rhythm, No Edema, No Gallop, No JVD, No Murmur, Normal Peripheral Pulses Capillary Refill: Less Than 3 Seconds Extremity: Normal Capillary Refill, Normal Inspection, Normal Range of Motion, Non Tender, No Calf Tenderness, No Pedal Edema Neurologic/Psychiatric: Alert, Oriented x3, No Motor/Sensory Deficits, Normal Mood/Affect Skin: Normal Color, Warm/Dry Lymphatic: No Adenopathy Results Lab Laboratory Tests 01/21/18 12:00 01/22/18 04:02 01/23/18 03:07 Assessment/Plan Assessment/Plan pneumonia - Tm 100.6 over last 24hrs -CXR appears worse -Repeat BNP -Hep lock IVF -CT of chest reviewed shows LLL pneumonia -Continue vanco and zosyn -PT will probably need bronchoscopy -Holding Plavix for 5 days -Echo shows EF 60-65% Tobacco use Hypokalemia, hypophos -replace Anxiety -Start Risperdal 0.5mg BID -Start morphine for air hunger Will leave in ICU but make ICU step down. CXR appears worse and still running a fever. Rechecking BNP. Pt will need bronch after being off plavix for 5days. JB SAINI DO Jan 23, 2018 06:12
[2018-01-23] MEDS: KCL 20 MEQ TAB (K-DUR) PO SCH (07:01)
[2018-01-23] MEDS: PANTOPRAZOLE 40 MG (PROTONIX) TAB PO SCH (07:06)
--- NOTE | 2018-01-23 07:32 | Diagnostic Imaging Report ---
INDICATION: Dyspnea Portable chest shows normal heart size and vascularity. There is left lower lobe infiltrate similar to the prior study from 01/22/2018. The right lung is clear. There is no effusion. IMPRESSION: Left lower lobe pneumonia. Stable chest. Dictated by: Dictated on workstation # [id number]
[2018-01-23] MEDS: ASPIRIN E.C. 81 MG (ECOTRIN) TAB PO SCH (08:50)
[2018-01-23] MEDS: risperiDONE 1 MG (RisperDAL) TAB PO SCH ×2 (08:50→21:38)
--- NOTE | 2018-01-23 09:12 | Progress Note-Hospitalist ---
Subjective HPI/CC On Admission Date Seen by Provider: Jan 23, 2018 Time Seen by Provider: 09:07 CC: Left side pneumonia, failed antibiotics at [facility] HPI: This is a 72 yo male directly admitted from Dr. Jimenez at [facility] where he was admitted for a left sided pneumonia that was not resolving despite IV antibiotics. Patient is confused about his condition making him a poor historian. States he was admitted Wednesday for a fever. Per records from [facility]: also admits he has had a cough, congestion, and fatigue. Subjective/Events-last exam Pt reports feeling well. No complaints. He is actually asking to be discharged. Unfortunately still has fevers and await bronchoscopy. Focused Exam Lactate Level 01/21/18 12:00: Lactic Acid Level 1.00 Objective Exam Vital Signs Vital Signs Date Time Temp Pulse Resp B/P (MAP) Pulse Ox O2 Delivery O2 Flow Rate FiO2 01/23/18 09:00 81 22 131/72 (91) 92 Nasal Cannula 3.00 01/23/18 08:00 98.2 01/22/18 08:05 35 Capillary Refill : Less Than 3 Seconds General Appearance: No Apparent Distress, WD/WN Respiratory: Lungs Clear, No Respiratory Distress Cardiovascular: Regular Rate, Rhythm, No Murmur Gastrointestinal: Normal Bowel Sounds, Non Tender, Soft Extremity: No Calf Tenderness, Pedal Edema (trace) Neurologic/Psychiatric: Alert, Oriented x3 Results/Procedures Lab Laboratory Tests 01/23/18 03:07 Patient resulted labs reviewed. Assessment/Plan Assessment and Plan Assess & Plan/Chief Complaint Pneumonia Diagnosis/Problems Diagnosis/Problems (1) Pneumonia Status: Acute Assessment & Plan: Await cultures from [place] Continue on Vanc and Zosyn Will likely need bronch but wait from Plavix to be off for 5 days Defer timing to Dr Rosenthal Weaned off vapotherm yesterday Qualifiers: Pneumonia type: due to unspecified organism Laterality: left Lung location: unspecified part of lung Qualified Codes: J18.9 - Pneumonia, unspecified organism (2) Hypertension Status: Chronic Assessment & Plan: Low to normal Hold home lisinopril Qualifiers: Hypertension type: essential hypertension Qualified Codes: I10 - Essential (primary) hypertension (3) CAD (coronary artery disease) Status: Chronic Assessment & Plan: Continue on ASA Hold plavix for potential bronch Continue statin Qualifiers: Coronary Disease-Associated Artery/Lesion type: [place] artery [place] vs. transplanted heart: [place] heart Associated angina: without angina Qualified Codes: I25.10 - Atherosclerotic heart disease of [place] coronary artery without angina pectoris (4) Meningioma Status: Chronic Assessment & Plan: Followed by outside hospital Will resume home [facility] Clinical Quality Measures DVT/VTE Risk/Contraindication: Risk Factor Score Per Nursin RFS Level Per Nursing on Admit: 4+=Very High KORI CLOUD MD Jan 23, 2018 09:12
[2018-01-23] MEDS: ENOXAPARIN 40 MG/0.4 ML (LOVENOX) SYR SC SCH (10:17)
[2018-01-23] MEDS: LEVETIRACETAM 1,000 MG (KEPPRA) TABLET PO SCH ×2 (10:18→21:38)
[2018-01-23] MEDS: VANCOMYCIN INJECTION 1,250 MG in NS (IVPB) 250 ML IV SCH (11:33)
--- NOTE | 2018-01-23 15:02 | Progress Note-Cardiology ---
Cardiology SOAP Progress Note Subjective: Shortness of breath somewhat better No cp or palp or syncope Gen malaise present Objective: I&O/Vital Signs 01/23/18 01/23/18 01/23/18 01/23/18 03:22 03:22 04:00 04:00 Temp 99.5 99.5 Pulse 82 Resp 28 B/P (MAP) 131/68 (89) Pulse Ox 91 O2 Delivery Nasal Cannula Nasal Cannula O2 Flow Rate 3.00 3.00 01/23/18 01/23/18 01/23/18 01/23/18 04:00 04:00 05:00 06:00 Temp 100.5 100.5 Pulse 81 81 Resp 20 24 B/P (MAP) 144/73 (96) 135/81 (99) Pulse Ox 91 92 O2 Delivery Nasal Cannula Nasal Cannula O2 Flow Rate 3.00 3.00 01/23/18 01/23/18 01/23/18 01/23/18 07:00 07:00 07:12 08:00 Pulse 74 74 84 Resp 26 20 B/P (MAP) 130/63 (85) 124/73 (90) Pulse Ox 93 93 91 O2 Delivery Nasal Cannula Nasal Cannula Nasal Cannula O2 Flow Rate 3.00 3.00 3.00 01/23/18 01/23/18 01/23/18 01/23/18 08:00 08:00 09:00 10:00 Temp 98.2 Pulse 81 92 Resp 22 17 B/P (MAP) 131/72 (91) 149/74 (99) Pulse Ox 92 92 O2 Delivery Nasal Cannula Nasal Cannula Nasal Cannula O2 Flow Rate 2.00 3.00 3.00 01/23/18 01/23/18 01/23/18 01/23/18 11:00 11:00 11:15 12:00 Temp 96.8 Pulse 80 76 Resp 19 19 B/P (MAP) 120/70 (87) 146/102 (117) Pulse Ox 93 94 94 O2 Delivery Nasal Cannula Nasal Cannula Nasal Cannula O2 Flow Rate 3.00 3.00 3.00 01/23/18 01/23/18 01/23/18 12:00 13:00 14:11 Pulse 94 Pulse Ox 97 O2 Delivery Nasal Cannula Nasal Cannula O2 Flow Rate 2.00 3.00 01/23/18 00:00 Intake Total 2402.5 ml Output Total 1500 ml Balance 902.5 ml Weight (Pounds): 180 Weight (Ounces): 8.0 Weight (Calculated Kilograms): 81.695143 Constitutional: appears stated age, well-developed, well-nourished, other ( Inappropriate conversation at times requiring re-direction; awake, alert and oriented to self and place) Respiratory: No accessory muscle use, No respiratory distress; rhonchi ( scattered), other (diminished bases bilat) Cardiovascular: regular rate-rhythm; No JVD; S1 and S2, systolic murmur Gastrointestional: No tender; soft, round, audible bowel sounds Extremities: no lower extremity edema bilateral Neurologic/Psychiatric: grossly intact, power is 5/5 both on sides Skin: No rash, No ulcerations Results/Procedures: Labs Laboratory Tests 01/23/18 03:07: White Blood Count 7.0, Red Blood Count 4.11L, Hemoglobin 12.1L, Hematocrit 36L, Mean Corpuscular Volume 87, Mean Corpuscular Hemoglobin 29, Mean Corpuscular Hemoglobin Concent 34, Red Cell Distribution Width 15.8H, Platelet Count 203, Mean Platelet Volume 11.2H, Neutrophils (%) (Auto) 68, Lymphocytes (%) (Auto) 18 , Monocytes (%) (Auto) 13H, Eosinophils (%) (Auto) 2, Basophils (%) (Auto) 0, Neutrophils # (Auto) 4.7, Lymphocytes # (Auto) 1.3, Monocytes # (Auto) 0.9, Eosinophils # (Auto) 0.1, Basophils # (Auto) 0.0, Sodium Level 141, Potassium Level 3.4L, Chloride Level 111H, Carbon Dioxide Level 19L, Anion Gap 11, Blood Urea Nitrogen 7, Creatinine 0.77, Estimat Glomerular Filtration Rate > 60, BUN/ Creatinine Ratio 9, Glucose Level 83, Calcium Level 8.1L, Phosphorus Level 2.3, Magnesium Level 1.3L, B-Type Natriuretic Peptide 343.7H Microbiology 01/21/18 Blood Culture - Preliminary, Resulted No growth 01/21/18 MRSA Screen - Final, Complete MRSA not isolated Laboratory Tests 01/22/18 04:02 01/23/18 03:07 A/P: Assessment: Pneumonia - management is by the [facility] Mild intrermittent confusion likely d/t hypoxemia d/t pneumonia Mild hypokalemia Stress test on August 25, [address] Beltre: revealing diaphragmatic attenuation with increased gastric uptake affecting the quality of images, overall there is reversible ischemia involving the whole inferior wall and inferolateral wall. SSS 21, SDS 10,TID value 1.03. Subsequent cardiac cath by Dr. Aguirre at [facility] in [place], [place] on September 01, 2017: patent stent in the RCA. The right PDA is jailed with the stent but does not appear to have flow limitation. Nonobstructive coronary atherosclerosis involving the left coronary stystem. LVEDP 22 mmHg. No gradient across the aortic valve. Coronary artery disease, history of acute myocardial infarction in May 2011 at a thrombus in the distal right coronary artery bifurcation point, underwent thrombectomy and stent deployment using 3.0x12 mm Ion stent expanded to 3.13 mm. With no residual stenosis, moderate stenosis in the proximal right coronary artery and moderate stenosis in the mid LAD. Up to 60 percent treated medically. Cardiac catheterization was carried out January 16, 2015 revealing patent stent in the distal RCA. Ostial posterior lateral branch with 90 percent stenosis. Small branch, medical therapy recommended. Mild disease in LAD and circumflex artery. EF 50 percent. Most recent cardiac cath of 2017 is as detailed above Echocardiogram of 01/21/18: LVEF 60-65%, no RWMA, mild dilatation of LA, PASP 35 mmHg, AoV sclerosis w/o stenosis H/o syncope vs seizure, none recently, followed and treated by Dr Beltre and pcp H/o meningioma resection at [place], [place] in 2014 H/o sinus bradycardia, asymptomatic Hypertension Hyperlipidemia History of abdominal aortic aneurysm, underwent endograft stent repair done by Dr. Aparicio in February 2012. ADARSH was significantly abnormal, Dr. Beltre evaluated CT angiogram of the abdominal aorta which was reported as bifurcated stent graft with progressive thrombus within its proximal aortic component and a new complete occlusion of its left iliac limb, increased size of the aneurysmal sac however no endoleak. There is occlusion of the external iliac artery through follow-up its length with reconstruction at the level of the common femoral, mild disease involving the femoral popliteal system with patent 3 vessel runoff bilaterally. Following with Dr. Boland at [facility] in [place], [place] Carotid stenosis, mild bilateral disease, last ultrasound was done in August 2017 Chronic tobacco use, advised to quit GERD Plan: * Continue current card regimen * Replenish K * Follow labs * Risk factor mod discussed, advised to refrain from tobacco use RIYA ZEPEDA MD FACP FACC CCDS Jan 23, 2018 15:02
[2018-01-23] MEDS: ALPRAZolam 0.25 MG (XANAX) TAB PO PRN (21:38)
[2018-01-23] MEDS: ATORVASTATIN 80 MG (LIPITOR) TABLET PO SCH (21:38)
[2018-01-24] VITALS (10 sets, daily range): BP systolic 110–152; BP diastolic 53–76
[2018-01-24] MEDS: VANCOMYCIN INJECTION 1,250 MG in NS (IVPB) 250 ML IV SCH (00:30)
[2018-01-24] MEDS: RT-ALBUTEROL/IPRATROPIUM 3 ML (DUONEB) VIAL INH SCH ×6 (01:44→22:37)
[2018-01-24] MEDS: PIPERACILLIN/TAZO 4.5 GM/NS 100 ML IV SCH ×6 (01:55→12:05)
[2018-01-24 03:29] LABS: BASOPHILS % (AUTO) 0 % (0-10); EOSINOPHILS # (AUTO) 0.3 10^3/uL (0.0-0.3); EOSINOPHILS % (AUTO) 4 % (0-10); HEMATOCRIT 32 % (40-54); HEMOGLOBIN 11.3 G/DL (13.3-17.7); LYMPHOCYTES # (AUTO) 1.1 X 10^3 (1.0-4.0); LYMPHOCYTES % (AUTO) 18 % (12-44); MEAN CORPUSCULAR HEMOGLOBIN 31 PG (25-34); MEAN CORPUSCULAR HGB CONC 35 G/DL (32-36); MEAN CORPUSCULAR VOLUME 88 FL (80-99); MONOCYTES # (AUTO) 0.7 X 10^3 (0.0-1.0); MONOCYTES % (AUTO) 13 % (0-12); NEUTROPHILS # (AUTO) 3.7 X 10^3 (1.8-7.8); NEUTROPHILS % (AUTO) 65 % (42-75); PLATELET COUNT 223 10^3/uL (130-400); RED BLOOD COUNT 3.69 10^6/uL (4.35-5.85); RED CELL DISTRIBUTION WIDTH 15.9 % (10.0-14.5); WHITE BLOOD COUNT 5.8 10^3/uL (4.3-11.0)
[2018-01-24 03:48] LABS: BUN/CREATININE RATIO 11; CALCIUM 8.3 MG/DL (8.5-10.1); CARBON DIOXIDE 20 MMOL/L (21-32); CHLORIDE 110 MMOL/L (98-107); GFR ESTIMATED > 60; GLUCOSE 113 MG/DL (70-105); MAGNESIUM 2.1 MG/DL (1.8-2.4); PHOSPHORUS 2.5 MG/DL (2.3-4.7); POTASSIUM 3.6 MMOL/L (3.6-5.0); SODIUM 139 MMOL/L (135-145)
[2018-01-24] MEDS: MAGNESIUM 1 GM/100 ML IVPB 100 ML IV SCH (05:01)
[2018-01-24] MEDS: POTASSIUM CL 10MEQ/50ML IVPB 50 ML IV SCH (05:01)
[2018-01-24] MEDS: KCL 20 MEQ TAB (K-DUR) PO SCH (05:02)
[2018-01-24] MEDS: NS IV 1000 ML 1,000 ML IV SCH (05:18)
--- NOTE | 2018-01-24 06:19 | Pulmonary Progress Note ---
Subjective Time Seen by a Provider: 06:18 Subjective/Events-last exam Pt appears to be doing better. Sepsis Event Evaluation Height, Weight, BMI Height: 5'5.00" Weight: 180lbs. 8.0oz. 81.630860ce; 29.5 BMI Method:Stated Focused Exam Lactate Level 01/21/18 12:00: Lactic Acid Level 1.00 Exam Exam Vital Signs Date Time Temp Pulse Resp B/P (MAP) Pulse Ox O2 Delivery O2 Flow Rate FiO2 01/24/18 06:00 70 19 110/53 (72) 91 Nasal Cannula 3.00 01/24/18 05:00 70 23 123/60 (81) Nasal Cannula 3.00 01/24/18 04:00 72 32 152/76 (101) 94 Nasal Cannula 3.00 01/24/18 03:00 75 21 95 Nasal Cannula 3.00 01/24/18 02:00 80 23 147/73 (97) 97 Nasal Cannula 3.00 01/24/18 01:44 91 Nasal Cannula 3.00 01/24/18 01:00 70 01/24/18 01:00 70 21 93 Nasal Cannula 3.00 01/24/18 00:00 Nasal Cannula 3.00 01/24/18 00:00 68 24 146/75 (98) 94 Nasal Cannula 3.00 01/23/18 23:00 79 17 93 Nasal Cannula 3.00 01/23/18 22:00 77 20 139/73 (95) 95 Nasal Cannula 3.00 01/23/18 21:19 95 Nasal Cannula 3.00 01/23/18 21:00 71 26 146/78 (100) 95 Nasal Cannula 3.00 01/23/18 20:00 Nasal Cannula 3.00 01/23/18 20:00 73 27 156/87 (110) 97 Nasal Cannula 3.00 01/23/18 19:00 70 21 167/83 (111) 96 Nasal Cannula 3.00 01/23/18 19:00 70 01/23/18 17:10 147/82 (103) 01/23/18 16:06 Nasal Cannula 2.00 01/23/18 16:00 65 22 166/81 (109) Nasal Cannula 3.00 01/23/18 15:34 98.0 70 22 174/83 (113) 97 Nasal Cannula 3.00 01/23/18 14:11 97 Nasal Cannula 3.00 01/23/18 13:00 94 01/23/18 12:00 Nasal Cannula 2.00 01/23/18 12:00 76 19 146/102 (117) 94 Nasal Cannula 3.00 01/23/18 11:15 96.8 01/23/18 11:00 80 19 120/70 (87) 94 Nasal Cannula 3.00 01/23/18 11:00 93 Nasal Cannula 3.00 01/23/18 10:00 92 17 149/74 (99) 92 Nasal Cannula 3.00 01/23/18 09:00 81 22 131/72 (91) 92 Nasal Cannula 3.00 01/23/18 08:00 98.2 01/23/18 08:00 Nasal Cannula 2.00 01/23/18 08:00 84 20 124/73 (90) 91 Nasal Cannula 3.00 01/23/18 07:12 93 Nasal Cannula 3.00 01/23/18 07:00 74 01/23/18 07:00 74 26 130/63 (85) 93 Nasal Cannula 3.00 I & O 01/24/18 07:00 Intake Total 1425 ml Output Total 3350 ml Balance -1925 ml Height & Weight Height: 5'5.00" Weight: 180lbs. 8.0oz. 81.658460tg; 29.5 BMI Method:Stated General Appearance: No Apparent Distress, WD/WN HEENT: PERRL/EOMI, TMs Normal, Normal ENT Inspection, Pharynx Normal Neck: Full Range of Motion, Normal Inspection, Non Tender, Supple, Carotid Bruit Respiratory: Lungs Clear, No Respiratory Distress Cardiovascular: Regular Rate, Rhythm, No Murmur Capillary Refill: Less Than 3 Seconds Extremity: No Calf Tenderness, No Pedal Edema Neurologic/Psychiatric: Alert, Oriented x3, Other (flat affect) Skin: Normal Color, Warm/Dry Lymphatic: No Adenopathy Results Lab Laboratory Tests 01/23/18 03:07 01/24/18 02:54 Assessment/Plan Assessment/Plan pneumonia - -CXR appears worse - Hep lock IVF -CT of chest reviewed shows LLL pneumonia -Continue vanco and zosyn -PT will probably need bronchoscopy -Holding Plavix for 5 days -Echo shows EF 60-65% -Give Lasix to 40mg IV daily Tobacco use Hypokalemia -replace Anxiety -Risperdal 0.5mg BID morphine for air hunger JB SAINI DO Jan 24, 2018 06:19
[2018-01-24] MEDS ORDERED: KCL 20 MEQ TAB (K-DUR) PO ONE ×2 (06:30→09:00)
[2018-01-24] MEDS: PANTOPRAZOLE 40 MG (PROTONIX) TAB PO SCH (06:55)
[2018-01-24] MEDS ORDERED: FUROSEMIDE 40 MG/4 ML INJ (LASIX) IVP ONE (07:15)
--- NOTE | 2018-01-24 07:27 | Diagnostic Imaging Report ---
EXAM: CHEST 1 VIEW, AP/PA ONLY INDICATION: Dyspnea. COMPARISON: Chest radiograph 01/23/2018. FINDINGS: Normal heart size and central pulmonary vascularity. Persistent consolidation in the left lower lung. No pleural effusion or pneumothorax. No acute osseous findings. IMPRESSION: Stable consolidation in the left lower lung consistent with pneumonitis. Dictated by: Dictated on workstation # [id number]
--- NOTE | 2018-01-24 11:31 | Physical Therapy Daily Note ---
PT Daily Note-Current Subjective Patient is in bed and agrees to PT. He states he wants to go home. Pain Numeric Pain Scale: 0-No Pain Location: No Pain Reported Mental Status Patient Orientation: Normal For Age Attachments: Rubi Catheter Transfers Functional [place] Measure 0=Not Assessed/NA 4=Minimal Assistance 1=Total Assistance 5=Supervision or Setup 2=Maximal Assistance 6=Modified [place] 3=Moderate Assistance 7=Complete IndependenceIRFPAI Quality Coding Scale 6 Independent with activity with or without an assistive device 5 Patient requires set up or clean up by helper. Patient completes activity by themselves 4 Supervision or touching assist (CGA). [place] provide cues , steadying assist 3 The helper provides less than half the effort to complete the activity 2 The helper provides more than half the effort to complete the activity 1 Dependent. The helper does all the effort to complete an activity 7 Patient refused to complete or attempt activity 9 The patient did not perform the activity before the current illness or injury 88 Not attempted due to Medical conditions or safety concerns Transfers (B, C, W/C) (FIM): 7 Scootin Rollin Supine to/from Sit: 7 Sit to/from Stand: 7 Weight Bearing Right Lower Extremity: Right Weight Bearing/Tolerated Left Lower Extremity: Left Weight Bearing/Tolerated Gait Training Gait (FIM): 7 Distance (FIM): 3=150 ft Distance: 800' Gait Level of Assist: 7 Gait Assistive Device: None safe and functional/no deviation Assessment Patient is currently at independent PLOF with all gross motor skills and does not require skilled therapy intervention. PT to dismiss patient from services at this time. PT Short Term Goals Short Term Goals Time Frame: Jan 25, 2018 Transfers (B,C,W/C) (FIM): 6 PT Newspaper Stuffer Goals Skilled Nursing Goals PT Newspaper Stuffer Goals Time Frame: Feb 05, 2018 Gait (FIM): 6 Gait distance (FIM): 3=150 ft Distance: 150 Gait Level of Assist: 6 Gait Assistive Device: None Stairs (FIM): 5 # of Steps: 4 Stairs Level Of Assist: 6 PT Plan Treatment/Plan Treatment Plan: Discontinue PT, goals met Treatment Plan: Bed Mobility, Education, Functional Activity Tra, Functional Strength, Gait, Safety, Therapeutic Exercise, Transfers Treatment Duration: Feb 05, 2018 Frequency: 6 times per week Estimated Hrs Per Day: .25 hour per day Patient and/or Family Agrees t: Yes Time/GCodes Time In: 1107 Time Out: 1118 Total Billed Treatment Time: 11 Total Billed Treatment 1 visit FA 11 min BREN TABOR PT Jan 24, 2018 11:31
[2018-01-24] MEDS: ENOXAPARIN 40 MG/0.4 ML (LOVENOX) SYR SC SCH (12:01)
[2018-01-24] MEDS: risperiDONE 1 MG (RisperDAL) TAB PO SCH ×2 (12:01→22:12)
[2018-01-24] MEDS: LEVETIRACETAM 1,000 MG (KEPPRA) TABLET PO SCH ×2 (12:02→22:12)
[2018-01-24] MEDS: ASPIRIN E.C. 81 MG (ECOTRIN) TAB PO SCH (12:04)
--- NOTE | 2018-01-24 13:43 | Progress Note-Hospitalist ---
Progress Note Progress Notes/Assess & Plan Date Seen 01/24/18 Time Seen by Provider: 13:38 Assessment & Plan The patient is a 72-year-old white male transferred here to the hospitalist service from [place]. He had an apparent pneumonia which was not improving. His temperature peaked at 102.4 on 01/21 the date of his arrival. The MAXIMUM TEMPERATURE for today is 100.5. During this time the white blood count has never been above 10,000. His CT scan at admission showed a process in the base of the left lung. At that time it was not felt to suggest a malignant process. Most interestingly he has had a frontal meningioma. This was first diagnosed and treated with surgery at [facility]. He presently has a recurrence which would represent his third. His states that she has been told that these are considered to be quite aggressive by meningioma standards. They have an appointment to attempt experimental therapy. This will take place in [place] and I believe [facility]. He reports that he is feeling better and would like to go home. Physical exam: He is alert and pleasant. He is not obviously confused. Color is pink. CV is regular. Lungs show some dullness in the left posterior base. Abdomen is negative. Extremities show no pedal edema. Impression: Left lower lobe pneumonia. 2.frontal meningioma with recurrence 3. Plan: Continue present IV antibiotics. KIARA PINZON MD Jan 24, 2018 13:43
--- NOTE | 2018-01-24 14:17 | Occupational Ther Daily Note ---
OT Current Status-Daily Note Subjective Pt seen in room, up in bed, agreeable to OT. No pain mentioned Appearance Alert, cooperative Mental Status/Objective Functional [place] Measure 0=Not Assessed/NA 4=Minimal Assistance 1=Total Assistance 5=Supervision or Setup 2=Maximal Assistance 6=Modified [place] 3=Moderate Assistance 7=Complete [place] ADL-Treatment Family present. pt has baxter but reported he was able to manage toileting and toilet hygiene without trouble today. He said he has been able to feed himself without help and declined to work on hygiene (due to baxter and IV). He has been getting up and down and walked 800' without AD and with no help with PT. Pt and family voice no concerns about self care needs and hope to go home tomorrow. DC OT with goals met to their satisfaction. Education OT Patient Education: Progress toward Goal/Update tx plan, Purpose of tx/ functional activities Teaching Recipient: Patient, Family Teaching Methods: Discussion Response to Teaching: Verbalize Understanding OT Short Term Goals Short Term Goals Time Frame: Jan 28, 2018 Grooming(FIM): 6 Bathing(FIM): 6 Upper Body Dressing(FIM): 6 Transfers (B,C,W/C) (FIM): 6 1=Demonstrate adherence to instructed precautions during ADL tasks. 2=Patient will verbalize/demonstrate understanding of assistive devices/ modifications for ADL. 3=Patient will improve strength/tolerance for activity to enable patient to perform ADL's. OT Macaroni Maker Goals Halfway Goals Time Frame: Feb 04, 2018 Grooming(FIM): 7 Upper Body Dressing(FIM): 7 Lower Body Dressing(FIM): 7 Toileting(FIM): 7 Transfers (B,C,W/C) (FIM): 7 Additional Goals: 1-Demonstrate ADL Tasks 1=Demonstrate adherence to instructed precautions during ADL tasks. 2=Patient will verbalize/demonstrate understanding of assistive devices/ modifications for ADL. 3=Patient will improve strength/tolerance for activity to enable patient to perform ADL's. OT Education/Plan Discharge Recommendations Plan/Recommendations: Discharge/Goals Met (to patient satisfaction) Treatment Plan/Plan of Care Patient would benefit from OT for education, treatment and training to promote independence in ADL's, mobility, safety and/or upper extremity function for ADL' s. Treatment Duration: Feb 04, 2018 Frequency: At least 5 of 7 days/Wk (IRF) Estimated Hrs Per Day: .25 hour per day Rehab Potential: Good Time/GCodes Start Time: 14:00 Stop Time: 14:10 Total Time Billed (hr/min): 10 Billed Treatment Time visit, 10 minutes DIEGO BARNARD OT Jan 24, 2018 14:17
[2018-01-24] MEDS: ATORVASTATIN 80 MG (LIPITOR) TABLET PO SCH (22:12)
[2018-01-25] VITALS (8 sets, daily range): BP systolic 119–181; BP diastolic 60–79
[2018-01-25] MEDS: PIPERACILLIN/TAZO 4.5 GM/NS 100 ML IV SCH ×6 (01:50→18:04)
[2018-01-25] MEDS: RT-ALBUTEROL/IPRATROPIUM 3 ML (DUONEB) VIAL INH SCH ×6 (02:47→22:55)
[2018-01-25 04:33] LABS: BASOPHILS % (AUTO) 0 % (0-10); EOSINOPHILS # (AUTO) 0.3 10^3/uL (0.0-0.3); EOSINOPHILS % (AUTO) 4 % (0-10); HEMATOCRIT 34 % (40-54); HEMOGLOBIN 11.6 G/DL (13.3-17.7); LYMPHOCYTES # (AUTO) 1.3 X 10^3 (1.0-4.0); LYMPHOCYTES % (AUTO) 23 % (12-44); MEAN CORPUSCULAR HEMOGLOBIN 30 PG (25-34); MEAN CORPUSCULAR HGB CONC 34 G/DL (32-36); MEAN CORPUSCULAR VOLUME 87 FL (80-99); MEAN PLATELET VOLUME 10.8 FL (7.4-10.4); MONOCYTES % (AUTO) 18 % (0-12); NEUTROPHILS # (AUTO) 3.1 X 10^3 (1.8-7.8); NEUTROPHILS % (AUTO) 55 % (42-75); PLATELET COUNT 289 10^3/uL (130-400); RED BLOOD COUNT 3.89 10^6/uL (4.35-5.85); RED CELL DISTRIBUTION WIDTH 16.2 % (10.0-14.5); WHITE BLOOD COUNT 5.7 10^3/uL (4.3-11.0)
[2018-01-25 04:44] LABS: BUN/CREATININE RATIO 17; CALCIUM 8.4 MG/DL (8.5-10.1); CARBON DIOXIDE 21 MMOL/L (21-32); CHLORIDE 112 MMOL/L (98-107); CREATININE SERUM 0.83 MG/DL (0.60-1.30); GFR ESTIMATED > 60; GLUCOSE 101 MG/DL (70-105); PHOSPHORUS 3.2 MG/DL (2.3-4.7); POTASSIUM 4.1 MMOL/L (3.6-5.0); SODIUM 142 MMOL/L (135-145)
[2018-01-25] MEDS: PANTOPRAZOLE 40 MG (PROTONIX) TAB PO SCH (06:18)
[2018-01-25] MEDS: KCL 20 MEQ TAB (K-DUR) PO SCH (06:36)
--- NOTE | 2018-01-25 08:04 | Pulmonary Progress Note ---
Subjective Time Seen by a Provider: 08:02 Sepsis Event Evaluation Height, Weight, BMI Height: 5'5.00" Weight: 186lbs. 8.0oz. 84.608550nq; 29.5 BMI Method:Stated Exam Exam Vital Signs Date Time Temp Pulse Resp B/P (MAP) Pulse Ox O2 Delivery O2 Flow Rate FiO2 01/25/18 07:19 97.5 72 18 139/70 (93) 90 Room Air 01/25/18 07:17 91 Room Air 01/25/18 04:00 99.6 66 20 144/69 (94) 90 Room Air 01/24/18 23:42 99.5 83 20 140/66 (90) 91 Room Air 01/24/18 22:37 89 Room Air 01/24/18 21:00 Room Air 01/24/18 20:37 99.0 80 18 142/67 (92) 92 Room Air 01/24/18 16:34 98.4 90 18 133/64 (87) 91 Room Air 01/24/18 15:54 91 Room Air 01/24/18 12:27 98.7 80 20 130/65 (86) 91 Room Air 01/24/18 11:51 90 Room Air 01/24/18 09:00 Room Air 01/24/18 08:40 97.5 79 20 116/65 (82) 91 Room Air I & O 01/25/18 07:00 Intake Total 1500 ml Output Total 4650 ml Balance -3150 ml Height & Weight Height: 5'5.00" Weight: 186lbs. 8.0oz. 84.865933jd; 29.5 BMI Method:Stated General Appearance: No Apparent Distress, WD/WN HEENT: PERRL/EOMI, TMs Normal, Normal ENT Inspection, Pharynx Normal Neck: Full Range of Motion, Normal Inspection, Non Tender, Supple, Carotid Bruit Respiratory: Lungs Clear, No Respiratory Distress Cardiovascular: Regular Rate, Rhythm, No Murmur Capillary Refill: Less Than 3 Seconds Extremity: No Calf Tenderness, No Pedal Edema Neurologic/Psychiatric: Alert, Oriented x3, Other (flat affect) Skin: Normal Color, Warm/Dry Lymphatic: No Adenopathy Results Lab Laboratory Tests 01/24/18 02:54 01/25/18 04:10 Assessment/Plan Assessment/Plan pneumonia - Pt has not had leukocytosis and fever, infiltration has been very slow to improve -Sputum shows fungal - -CXR appears better today - Hep lock IVF -CT of chest reviewed shows LLL pneumonia -Continue zosyn -PT will probably need bronchoscopy r/o endobronchial lesion, fungal infection -Holding Plavix for 5 days -Echo shows EF 60-65% -Give Lasix to 40mg IV daily Hx of frontal lobe meningioma Tobacco use Hypokalemia -replace Anxiety -Risperdal 0.5mg BID morphine for air hunger JB SAINI DO Jan 25, 2018 08:04
--- NOTE | 2018-01-25 08:37 | Diagnostic Imaging Report ---
INDICATION: Dyspnea. Comparison made with prior examination from 01/24/2018. FINDINGS: There is cardiomegaly. There is mild venous congestion. There is some persistent left basilar atelectasis and/or pneumonitis. There is no pleural effusion or pneumothorax. The mediastinum is unremarkable. IMPRESSION: Left basilar atelectasis and/or pneumonitis. Cardiomegaly and mild central pulmonary venous congestion. Dictated by: Dictated on workstation # [id number]
[2018-01-25] MEDS: ASPIRIN E.C. 81 MG (ECOTRIN) TAB PO SCH (09:01)
[2018-01-25] MEDS: risperiDONE 1 MG (RisperDAL) TAB PO SCH ×2 (09:01→20:23)
[2018-01-25] MEDS: LEVETIRACETAM 1,000 MG (KEPPRA) TABLET PO SCH ×2 (09:02→20:23)
[2018-01-25] MEDS: ENOXAPARIN 40 MG/0.4 ML (LOVENOX) SYR SC SCH (10:24)
--- NOTE | 2018-01-25 12:27 | Progress Note-Hospitalist ---
Progress Note Progress Notes/Assess & Plan Date Seen 01/25/18 Time Seen by Provider: 12:24 Assessment & Plan The patient is afebrile and in good spirits today. I had a discussion with Dr. Rosenthal. He believes that given the clinical improvement bronchoscopy is not necessarily required immediately. If he fails to clear his x-ray over the next few weeks it could be done as an outpatient. I believe that at his current rate able be ready for discharge tomorrow. Physical exam: He is alert and oriented. Lungs are clear to auscultation. CV is regular without murmur. Abdomen is soft. Extremities show no pedal edema. Impression: Resolving left lower lobe pneumonia. 2.recurrent frontal meningioma Plan: IV antibiotics through today with consideration of discharge tomorrow KIARA PINZON MD Jan 25, 2018 12:27
[2018-01-25] MEDS: ATORVASTATIN 80 MG (LIPITOR) TABLET PO SCH (20:23)
[2018-01-26] MEDS: PIPERACILLIN/TAZO 4.5 GM/NS 100 ML IV SCH ×4 (01:59→08:47)
[2018-01-26] MEDS: RT-ALBUTEROL/IPRATROPIUM 3 ML (DUONEB) VIAL INH SCH ×3 (02:27→11:41)
[2018-01-26 04:00] VITALS: BP 138/67
[2018-01-26 04:23] LABS: BASOPHILS % (AUTO) 0 % (0-10); EOSINOPHILS # (AUTO) 0.3 10^3/uL (0.0-0.3); EOSINOPHILS % (AUTO) 4 % (0-10); HEMATOCRIT 34 % (40-54); HEMOGLOBIN 11.8 G/DL (13.3-17.7); LYMPHOCYTES # (AUTO) 1.3 X 10^3 (1.0-4.0); LYMPHOCYTES % (AUTO) 20 % (12-44); MEAN CORPUSCULAR HEMOGLOBIN 31 PG (25-34); MEAN CORPUSCULAR HGB CONC 35 G/DL (32-36); MEAN CORPUSCULAR VOLUME 88 FL (80-99); MEAN PLATELET VOLUME 10.1 FL (7.4-10.4); MONOCYTES # (AUTO) 1.1 X 10^3 (0.0-1.0); MONOCYTES % (AUTO) 17 % (0-12); NEUTROPHILS # (AUTO) 3.9 X 10^3 (1.8-7.8); NEUTROPHILS % (AUTO) 59 % (42-75); PLATELET COUNT 373 10^3/uL (130-400); RED BLOOD COUNT 3.87 10^6/uL (4.35-5.85); RED CELL DISTRIBUTION WIDTH 16.2 % (10.0-14.5); WHITE BLOOD COUNT 6.6 10^3/uL (4.3-11.0)
[2018-01-26 04:46] LABS: BUN/CREATININE RATIO 14; CARBON DIOXIDE 21 MMOL/L (21-32); CHLORIDE 110 MMOL/L (98-107); CREATININE SERUM 0.83 MG/DL (0.60-1.30); GFR ESTIMATED > 60; GLUCOSE 100 MG/DL (70-105); MAGNESIUM 1.9 MG/DL (1.8-2.4); PHOSPHORUS 3.3 MG/DL (2.3-4.7); POTASSIUM 4.2 MMOL/L (3.6-5.0); SODIUM 141 MMOL/L (135-145)
[2018-01-26] MEDS: KCL 20 MEQ TAB (K-DUR) PO SCH (05:55)
[2018-01-26] MEDS: PANTOPRAZOLE 40 MG (PROTONIX) TAB PO SCH (06:09)
--- NOTE | 2018-01-26 06:56 | Diagnostic Imaging Report ---
INDICATION: Dyspnea. COMPARISON: 01/25/2018. FINDINGS: Left mid and basilar heterogeneous opacities persist but have improved. No pleural effusion or pneumothorax. Stable borderline cardiomegaly. Normal pulmonary vasculature. IMPRESSION: Improved but persistent left basilar pulmonary opacities. Dictated by: Dictated on workstation # [id number]
[2018-01-26 08:02] VITALS: BP 160/73
[2018-01-26] MEDS: LEVETIRACETAM 1,000 MG (KEPPRA) TABLET PO SCH (08:46)
[2018-01-26] MEDS: risperiDONE 1 MG (RisperDAL) TAB PO SCH (08:47)
[2018-01-26] MEDS: ASPIRIN E.C. 81 MG (ECOTRIN) TAB PO SCH (08:47)
--- NOTE | 2018-01-26 08:58 | Progress Note-Hospitalist ---
KEN JONES MED STUDENT 01/26/18 0858: Subjective HPI/CC On Admission Date Seen by Provider: Jan 26, 2018 Time Seen by Provider: 07:30 CC: Left side pneumonia, failed antibiotics at [facility] HPI: This is a 72 yo male directly admitted from Dr. Jimenez at [facility] where he was admitted for a left sided pneumonia that was not resolving despite IV antibiotics. Patient is confused about his condition making him a poor historian. States he was admitted Wednesday for a fever. Per records from [facility]: also admits he has had a cough, congestion, and fatigue. Subjective/Events-last exam patient reports no acute events overnight urinating and having bowel movements frequently and without difficulty not in any pain feels well enough to go home Day 6 on zosyn for pneumonia Objective Exam Vital Signs Vital Signs Date Time Temp Pulse Resp B/P (MAP) Pulse Ox O2 Delivery O2 Flow Rate FiO2 01/26/18 08:02 97.6 71 18 160/73 (102) 92 Room Air 01/25/18 14:51 21 01/24/18 06:00 3.00 Capillary Refill : Less Than 3 Seconds General Appearance: No Apparent Distress, WD/WN HEENT: Normal ENT Inspection Neck: Full Range of Motion, Normal Inspection, Non Tender, Supple Respiratory: Chest Non Tender, Lungs Clear, Normal Breath Sounds, No Accessory Muscle Use, No Respiratory Distress Cardiovascular: Regular Rate, Rhythm, No Edema, No Gallop, No JVD, No Murmur, Normal Peripheral Pulses Gastrointestinal: Non Tender, Soft Back: Normal Inspection, No CVA Tenderness, No Vertebral Tenderness Extremity: Normal Capillary Refill, Normal Inspection, Normal Range of Motion, Non Tender, No Calf Tenderness, No Pedal Edema Neurologic/Psychiatric: Alert, No Motor/Sensory Deficits, Normal Mood/Affect Skin: Normal Color, Warm/Dry Lymphatic: No Adenopathy Results/Procedures Lab Laboratory Tests 01/26/18 04:15 Patient resulted labs reviewed. Assessment/Plan Assessment and Plan Assess & Plan/Chief Complaint Assesment: clinical symptoms improved after 6 days IV zosyn PMHx CAD, [place], meningioma smoker Plan: discharge today or tomorrow Clinical Quality Measures DVT/VTE Risk/Contraindication: Risk Factor Score Per Nursin RFS Level Per Nursing on Admit: 4+=Very High SUGAR HICKEY DO 01/26/18 1134: Subjective HPI/CC On Admission Time Seen by Provider: 09:30 Subjective/Events-last exam DC planned for today Home O2 evaluation I personally have seen and evaluated the patient and performed the physical exam. I agree with the documented assessment and plan. Objective Exam General Appearance: No Apparent Distress, WD/WN Respiratory: Chest Non Tender, Lungs Clear, Normal Breath Sounds, No Accessory Muscle Use, No Respiratory Distress Cardiovascular: Regular Rate, Rhythm, No Edema, No Gallop, No JVD, No Murmur, Normal Peripheral Pulses Neurologic/Psychiatric: Alert, Oriented x3, No Motor/Sensory Deficits, Normal Mood/Affect Assessment/Plan Assessment and Plan Assess & Plan/Chief Complaint Confusion resolved Home O2 evaluation pending Close f/u PCP Bronch Dr Rosenthal holding Plavix Diagnosis/Problems Diagnosis/Problems (1) Delirium Status: Resolved (2) Pneumonia Status: Acute Qualifiers: Pneumonia type: due to unspecified organism Laterality: left Lung location: unspecified part of lung Qualified Codes: J18.9 - Pneumonia, unspecified organism (3) Hypertension Status: Chronic Qualifiers: Hypertension type: essential hypertension Qualified Codes: I10 - Essential (primary) hypertension (4) PVD (peripheral vascular disease) Status: Chronic (5) CAD (coronary artery disease) Status: Chronic Qualifiers: Coronary Disease-Associated Artery/Lesion type: eek artery [place] vs. transplanted heart: eek heart Associated angina: without angina Qualified Codes: I25.10 - Atherosclerotic heart disease of e[place] coronary artery without angina pectoris (6) Meningioma Status: Chronic KEN JONES MED STUDENT Jan 26, 2018 08:58 SUGAR HICKEY DO Jan 26, 2018 11:34
[2018-01-26] MEDS: ENOXAPARIN 40 MG/0.4 ML (LOVENOX) SYR SC SCH (09:56)
[2018-01-26] MEDS ORDERED: CEFD300C3 PO (11:03)
[2018-01-26] MEDS ORDERED: POTA10CA43 PO (11:03)
[2018-01-26 11:09] VITALS: BP 123/63
[2018-01-26 14:00] VITALS: BP 123/63
--- NOTE | 2018-01-26 14:02 | Discharge Summary-Hospitalist ---
KEN JONES MED STUDENT 01/26/18 1402: Diagnosis/Chief Complaint Date of Admission Jan 21, 2018 at 10:26 Date of Discharge Discharge Date: Jan 26, 2018 Admission Diagnosis [place] [facility] [place] Diagnosis (1) Delirium Status: Resolved (2) Pneumonia Status: Acute (3) Hypertension Status: Chronic (4) PVD (peripheral vascular disease) Status: Chronic (5) CAD (coronary artery disease) Status: Chronic (6) Meningioma Status: Chronic Discharge Summary Discharge Physical Exam Allergies: Coded Allergies: No Known Drug Allergies (Unverified , 05/16/11) Vitals & I&Os Vital Signs Date Time Temp Pulse Resp B/P (MAP) Pulse Ox O2 Delivery O2 Flow Rate FiO2 01/26/18 11:45 88 Room Air 01/26/18 11:09 97.8 83 16 123/63 (83) 01/25/18 14:51 21 01/24/18 06:00 3.00 General Appearance: No Apparent Distress, WD/WN HEENT: Normal ENT Inspection Respiratory: Chest Non Tender, Normal Breath Sounds, No Accessory Muscle Use, No Respiratory Distress Cardiovascular: Regular Rate, Rhythm, No Edema, No Gallop, No JVD, No Murmur, Normal Peripheral Pulses Gastrointestinal: Normal Bowel Sounds, No Organomegaly, No Pulsatile Mass, Non Tender, Soft Extremity: Normal Capillary Refill, Normal Inspection, Normal Range of Motion, Non Tender, No Calf Tenderness, No Pedal Edema Skin: Normal Color, Warm/Dry Neurologic/Psychiatric: Alert, No Motor/Sensory Deficits, Normal Mood/Affect Hospital Course This is a 72 yo male who was admitted directly from [facility] with pneumonia after failing to improve on antibiotics. He has an extensive PMH including a meningioma and extensive cardiovascular history. He was initially evaluated in the ICU and then moved to general medical floor where he received IV antibiotics and breathing treatments. Pulmonology was consulted and it was determined that a bronchoscopy may be needed in the future on an outpatient basis, but due to clinical improvement, he was able to be discharged to home. We are sending him home with oxygen for temporary respiratory support. Plan to follow up outpatient with both Dr. Rosenthal pulmonology and Dr. Jimenez primary care. Labs (last 24 hrs) Laboratory Tests 01/26/18 04:15: White Blood Count 6.6, Red Blood Count 3.87L, Hemoglobin 11.8L, Hematocrit 34L, Mean Corpuscular Volume 88, Mean Corpuscular Hemoglobin 31, Mean Corpuscular Hemoglobin Concent 35, Red Cell Distribution Width 16.2H, Platelet Count 373, Mean Platelet Volume 10.1, Neutrophils (%) (Auto) 59, Lymphocytes (%) (Auto) 20 , Monocytes (%) (Auto) 17H, Eosinophils (%) (Auto) 4, Basophils (%) (Auto) 0, Neutrophils # (Auto) 3.9, Lymphocytes # (Auto) 1.3, Monocytes # (Auto) 1.1H, Eosinophils # (Auto) 0.3, Basophils # (Auto) 0.0, Sodium Level 141, Potassium Level 4.2, Chloride Level 110H, Carbon Dioxide Level 21, Anion Gap 10, Blood Urea Nitrogen 12, Creatinine 0.83, Estimat Glomerular Filtration Rate > 60, BUN/ Creatinine Ratio 14, Glucose Level 100, Calcium Level 9.0, Phosphorus Level 3.3 , Magnesium Level 1.9 Microbiology 01/21/18 Blood Culture - Preliminary, Resulted No growth 01/22/18 Gram Stain - Final, Complete 01/22/18 Sputum Culture - Final, Complete Yeast species Usual upper respiratory socrates Patient resulted labs reviewed. Discussion & Recommendations Discharge Planning: <30 minutes discharge planning Discharge Home Medications: Active Scripts Active Potassium Chloride 10 Meq Capsule.er 10 Meq PO DAILY Cefdinir 300 Mg Capsule 300 Mg PO BID Reported Fish Oil 1,000 mg Capsule ([place] 3 Polyunsat Fatty Acids) 1,000 Mg Cap 3,000 Mg PO DAILY TAKES 3 (1000MG) CAPSULES Aspirin EC (Aspirin) 81 Mg Tablet.dr 81 Mg PO DAILY Enalapril Maleate 10 Mg Tablet 10 Mg PO BID Metoprolol Succinate 25 Mg Tab.er.24h 25 Mg PO DAILY Pantoprazole Sodium 40 Mg Tablet.dr 40 Mg PO DAILY Atorvastatin Calcium 80 Mg Tablet 80 Mg PO HS Levetiracetam 500 Mg Tablet 1,000 Mg PO BID TAKES 2 (500MG) TABLETS Instructions to patient/family Please see electronic discharge instructions given to patient. Clinical Quality Measures DVT/VTE Risk/Contraindication: Risk Factor Score Per Nursin RFS Level Per Nursing on Admit: 4+=Very High SUGAR HICKEY DO 01/27/18 1116: Diagnosis/Chief Complaint Discharge Diagnosis (1) RESPIRATORY FAILURE, UNSP, UNSP W HYPOXIA OR HYPERCAPNIA (2) Pneumonia Status: Acute (3) Delirium Status: Resolved (4) Hypertension Status: Chronic (5) PVD (peripheral vascular disease) Status: Chronic (6) CAD (coronary artery disease) Status: Chronic (7) Meningioma Status: Chronic Discharge Summary Discharge Physical Exam Allergies: Coded Allergies: No Known Drug Allergies (Unverified , 05/16/11) General Appearance: No Apparent Distress, WD/WN Respiratory: Chest Non Tender, Lungs Clear, Normal Breath Sounds, No Accessory Muscle Use, No Respiratory Distress, Decreased Breath Sounds Cardiovascular: Regular Rate, Rhythm, No Edema, No Gallop, No JVD, No Murmur, Normal Peripheral Pulses Neurologic/Psychiatric: Alert, Oriented x3, No Motor/Sensory Deficits, Normal Mood/Affect Hospital Course I personally have seen and evaluated the patient and performed the physical exam. I agree with the documented assessment and plan. Discussion & Recommendations Discharge Planning: <30 minutes discharge planning Problem Qualifiers (1) Pneumonia: Pneumonia type: due to unspecified organism Laterality: left Lung location: unspecified part of lung Qualified Codes: J18.9 - Pneumonia, unspecified organism (2) Hypertension: Hypertension type: essential hypertension Qualified Codes: I10 - Essential ( primary) hypertension (3) CAD (coronary artery disease): Coronary Disease-Associated Artery/Lesion type: [place] artery [place] vs. transplanted heart: [place] heart Associated angina: without angina Qualified Codes: I25.10 - Atherosclerotic heart disease of [place] coronary artery without angina pectoris KEN JONES STUDENT Jan 26, 2018 14:02 SUGAR HICKEY DO Jan 27, 2018 11:16
--- NOTE | 2018-01-28 13:08 | Physician Query Clarification ---
PQ-Further Specificity Admission/Discharge Admission Date: Jan 21, 2018 at 10:26 Discharge Date: Jan 26, 2018 at 14:00 The medical record reflects the following clinical scenario: History/Risk Factors: Sputum shows fungal Clinical Findings: Sputum shows fungal Treatment: Vancomycin and Piperacillin Question: Can you further specify Pneumonia per the clinical indicators above? Please document below. 1. Pulmonary candidiasis 2. Pneumonia 3. Other, with explanation of the clinical findings. 4. Clinically undetermined, no explanation for the clinical findings. PHYSICIAN RESPONSE Can you specify per above: 2 In responding to this query, please exercise your independent professional judgment. The purpose of this communication is to more accurately reflect the complexity of your patients condition. The fact that a question is asked does not imply that any particular answer is desired or expected. Thank you for your timely response to this clarification. Requestors name: Lily Lindsey THIS PHYSICIAN QUERY FORM IS A PERMANENT PART OF THE MEDICAL RECORD AUDREY LINDSEY Jan 28, 2018 13:08 SUGAR HICKEY DO Jan 28, 2018 17:13
--- NOTE | 2018-01-28 13:23 | Physician Query Clarification ---
PQ-Uncertain Diagnosis Admission/Discharge Admission Date: Jan 21, 2018 at 10:26 Discharge Date: Jan 26, 2018 at 14:00 The medical record reflects the following clinical scenario: History/Risk Factors: Left side pneumonia, failed antibiotics at [facility] Clinical Findings: Per H&P on 01/21/18:Respiratory: Chest Non Tender, No Accessory Muscle Use, No Respiratory Distress, Decreased Breath Sounds, Wheezing (left) Treatment: Abx: vancomycin and zosyn - Also Proventil and Duoneb tx Question: Is RESPIRATORY FAILURE, UNSP, UNSP W HYPOXIA OR HYPERCAPNIA a clinically valid diagnosis? RESPIRATORY FAILURE, UNSP, UNSP W HYPOXIA OR HYPERCAPNIA was documented in the DC Summary on 01/26/18 with no further documentation in the medical record. Please document a response below. PHYSICIAN RESPONSE Diagnosis clinically valid: Yes, Conditon resolved In responding to this query, please exercise your independent professional judgment. The purpose of this communication is to more accurately reflect the complexity of your patients condition. The fact that a question is asked does not imply that any particular answer is desired or expected. Thank you for your timely response to this clarification. Requestors name: Lily Lindsey THIS PHYSICIAN QUERY FORM IS A PERMANENT PART OF THE MEDICAL RECORD AUDREY LINDSEY Jan 28, 2018 13:23 SUGAR HICKEY DO Jan 28, 2018 17:14
== END 2018-01-26 14:00 | disposition home or self-care (01) | DRG 193 ==
LOC: ICU 10:26 → 4TH 01-24 08:35
PROVIDERS: ADMIT Internal Medicine; ATTEND Internal Medicine
DX: J18.9 Pneumonia, unspecified organism (principal); J96.91 Respiratory failure, unspecified with hypoxia; R41.0 Disorientation, unspecified; E87.6 Hypokalemia; F17.210 Nicotine dependence, cigarettes, uncomplicated; I25.10 Atherosclerotic heart disease of native coronary artery without angina pectoris; I10 Essential (primary) hypertension; E78.00 Pure hypercholesterolemia, unspecified; I08.1 Rheumatic disorders of both mitral and tricuspid valves; K21.9 Gastro-esophageal reflux disease without esophagitis; K44.9 Diaphragmatic hernia without obstruction or gangrene; I73.9 Peripheral vascular disease, unspecified; I65.23 Occlusion and stenosis of bilateral carotid arteries; F41.9 Anxiety disorder, unspecified; D32.0 Benign neoplasm of cerebral meninges; E83.39 Other disorders of phosphorus metabolism; I25.2 Old myocardial infarction; Z86.011 Personal history of benign neoplasm of the brain; Z95.828 Presence of other vascular implants and grafts; Z92.3 Personal history of irradiation; Z79.02 Long term (current) use of antithrombotics/antiplatelets
CPT/HCPCS: 36415; 36600; 71045; 71260; 80048; 80053; 80202; 81000; 82805; 83605; 83735; 83880; 84100; 84484; 85025; 87040; 87070; 87081; 87205; 93005; 93306; 94640; 94664; 94760; 94761

== ENCOUNTER → 2018-02-25 | Outpatient (CLI) | payer MEDICARE, OTHER ==
[~2018-02-25] MED LIST changes: +ASPI-983 PO; +ATOR80TA76 PO; +CEFD300C3 PO; +CLOP75TA28 PO; +METO-387 PO; +PANT40TA3 PO; +POTA10CA43 PO
[2018-02-25 12:51] LABS: ALANINE AMINOTRANSFERASE 25 U/L (0-55); ALBUMIN 3.8 GM/DL (3.2-4.5); ALKALINE PHOSPHATASE 67 U/L (40-136); BILIRUBIN,TOTAL 0.6 MG/DL (0.1-1.0); BUN/CREATININE RATIO 11; CALCIUM 9.4 MG/DL (8.5-10.1); CARBON DIOXIDE 23 MMOL/L (21-32); CHLORIDE 108 MMOL/L (98-107); CHOLESTEROL 121 MG/DL (< 200); CREATININE SERUM 0.88 MG/DL (0.60-1.30); GFR ESTIMATED > 60; GLUCOSE 85 MG/DL (70-105); HDL CHOLESTEROL 31 MG/DL (40-60); POTASSIUM 3.9 MMOL/L (3.6-5.0); SODIUM 143 MMOL/L (135-145); TOTAL PROTEIN 6.8 GM/DL (6.4-8.2); TRIGLYCERIDES 119 MG/DL (<150); VLDL CHOLESTEROL 24 MG/DL (5-40)
== END ==
LOC: LAB 11:58
PROVIDERS: ATTEND Internal Medicine Cardiovascular Disease
DX: I10 Essential (primary) hypertension (principal); I21.9 Acute myocardial infarction, unspecified; I25.10 Atherosclerotic heart disease of native coronary artery without angina pectoris; I65.29 Occlusion and stenosis of unspecified carotid artery; I71.4 Abdominal aortic aneurysm, without rupture; Z72.0 Tobacco use
CPT/HCPCS: 36415; 80053; 80061

== ENCOUNTER → 2018-02-25 | Outpatient (CLI) | payer MEDICARE, OTHER ==
[~2018-02-25] MED LIST changes: +RT-ALBUTEROL SULF 2.5 MG/3 ML PRE-MIX VIAL INH ONE; +RT-ALBUTEROL SULF 2.5 MG/3 ML PRE-MIX VIAL ONE
== END ==
LOC: RT 11:53
PROVIDERS: ATTEND Nurse Practitioner Family
DX: J18.9 Pneumonia, unspecified organism (principal); R09.02 Hypoxemia; Z72.0 Tobacco use
CPT/HCPCS: 94060; 94726; 94729

== ENCOUNTER → 2018-02-25 | Outpatient (CLI) | payer MEDICARE, OTHER ==
[~2018-02-25] MED LIST changes: -RT-ALBUTEROL SULF 2.5 MG/3 ML PRE-MIX VIAL INH ONE; -RT-ALBUTEROL SULF 2.5 MG/3 ML PRE-MIX VIAL ONE
--- NOTE | 2018-02-25 12:53 | Diagnostic Imaging Report ---
PROCEDURE: CT of the chest without contrast. TECHNIQUE: Multiple contiguous axial images were obtained through the chest without the use of intravenous contrast. INDICATION: Pneumonia and hypoxemia. COMPARISON: Comparison is made with prior CT chest from 01/21/2018. FINDINGS: No axillary lymphadenopathy is seen. Small lymph nodes in the mediastinum are again noted. The previously measured right paratracheal node has decreased in size, now measuring 15 mm x 13 mm compared with 18 mm x 16 mm on prior exam. Coronary arterial calcifications are again seen. No pericardial fluid is identified. Previously noted bilateral pleural effusions have resolved. In addition, the extensive left lower lobe infiltrate with consolidation has nearly completely resolved. Only minimal residual density at this location is seen on today's study. Right lung also demonstrates improved aeration particularly to the right lower lobe. No new infiltrate or mass is seen. The upper abdomen is unremarkable. IMPRESSION: 1. Significant improved appearance to the chest when compared with prior CT from one month earlier. Reactive lymphadenopathy in the mediastinum has decreased in size. Bilateral pulmonary infiltrates have nearly completely resolved. Dictated by: Dictated on workstation # [id number]
== END ==
LOC: RAD 11:50
PROVIDERS: ATTEND Nurse Practitioner Family
DX: J18.9 Pneumonia, unspecified organism (principal); R59.0 Localized enlarged lymph nodes; Z72.0 Tobacco use
CPT/HCPCS: 71250

== ENCOUNTER → 2019-02-28 | Outpatient (CLI) | payer MEDICARE, OTHER ==
--- NOTE | 2019-02-28 15:11 | Diagnostic Imaging Report ---
CT CHEST SCREENING WO TECHNIQUE: Low-dose unenhanced CT of the chest was performed according to the screening protocol. Coronal MIP and sagittal MPR reformats are created. Automatic exposure controls were utilized to keep dose as low as reasonably achievable. INDICATION: 73-year-old current smoker with 120+-pack-year history of smoking. COMPARISON: CT chest of 02/25/2018. FINDINGS: Pulmonary findings: No endoluminal nodule within the trachea. Moderate centrilobular emphysema is again noted. No pulmonary mass or consolidation. Scattered calcified pulmonary nodules are stable and compatible with old granulomatous infection. No pulmonary nodule that would suggest primary lung cancer. Extrapulmonary findings: No pleural effusion. No axillary lymphadenopathy. No mediastinal, discrete hilar, or juxtaphrenic lymphadenopathy. Heart remains mildly enlarged without pericardial effusion. Coronary artery calcifications are unchanged. Normal-caliber thoracic aorta has mild atherosclerotic plaquing. IMPRESSION: 1. Screening examination is negative for features of currently active lung cancer. 2. Moderate emphysema. 3. Unchanged coronary artery disease. LUNG-RADS CATEGORY: 1 - Negative MODIFIER: None. RECOMMENDATIONS: Continued annual screening with low-dose CT in 12 months. Dictated by: Dictated on workstation # [id number]
== END ==
LOC: RAD 14:04
PROVIDERS: ATTEND Nurse Practitioner Family
DX: J43.9 Emphysema, unspecified (principal); I25.10 Atherosclerotic heart disease of native coronary artery without angina pectoris; J18.9 Pneumonia, unspecified organism; F17.210 Nicotine dependence, cigarettes, uncomplicated; Z72.0 Tobacco use

== ENCOUNTER 2020-08-12 11:00 | Outpatient (CLI) | payer MEDICARE, OTHER ==
[~2020-08-12] VITALS: Ht 162.6 cm; Wt 79.1 kg
[~2020-08-12 11:00] MED LIST changes: +ASPI-1238 PO; -ASPI-983 PO; +ENAL10TA16 PO; -METO-387 PO; -PANT40TA3 PO; +PANT40TA52 PO
[2020-08-12] MEDS ORDERED: CLOP75TA28 PO (11:45)
== END 2020-08-12 11:59 | disposition home or self-care (01) ==
LOC: PREOP 11:00
PROVIDERS: ATTEND Surgery
DX: Z01.818 Encounter for other preprocedural examination (principal)

== ENCOUNTER 2020-08-15 09:22 | Day surgery (SDC) | payer MEDICARE, OTHER ==
[2020-08-15] VITALS (12 sets, daily range): BP systolic 131–202; BP diastolic 61–106
[~2020-08-15] VITALS: Ht 165.1 cm; Wt 79.1 kg
[2020-08-15] MEDS ORDERED: ceFAZolin 2 GM IV Premixed 50 ML IV ONE (10:00)
[2020-08-15] MEDS: LACTATED RINGERS 1,000 ML IV PRN ×2 (10:14→12:15)
[2020-08-15] MEDS ORDERED: LIDOCAINE/EPI 1%-1:200,000 (XYLOCAINE) 10 ML VIAL ONE (10:33)
[2020-08-15] MEDS ORDERED: ONDANSETRON 4 MG/2 ML (SDV) Z0FRAN ONE (10:40)
[2020-08-15] MEDS ORDERED: proPOfol 200 MG/20 ML (DIPRIVAN) VIAL IV ONE (10:40)
[2020-08-15] MEDS ORDERED: SEVOFLURANE (ULTANE) 15 ML INHAL SOLN ONE (10:41)
[2020-08-15] MEDS ORDERED: fentaNYL INJ 100 MCG/2 ML AMP ONE (10:41)
[2020-08-15] MEDS ORDERED: ROCURONIUM 10 MG/ML 5 ML SYRINGE IV ONE (10:41)
[2020-08-15] MEDS ORDERED: LIDOCAINE PF 2% 5 ML (XYLOCAINE) VIAL ONE (10:41)
--- NOTE | 2020-08-15 10:58 | Progress Note-Pre Operative ---
Pre-Operative Progress Note H&P Reviewed The H&P was reviewed, patient examined and no changes noted. Date Seen by Provider: Aug 15, 2020 Time Seen by Provider: : Date H&P Reviewed: Aug 15, 2020 Time H&P Reviewed: :30 Pre-Operative Diagnosis: bilateral reducible inguinal hernia JOSÉ LUIS ESTRADA MD Aug 15, 2020 10:57
[2020-08-15] MEDS ORDERED: ACETAMINOPHEN 325 MG TABLET PO PRN (11:00)
[2020-08-15] MEDS ORDERED: ONDANSETRON 4 MG/2 ML (SDV) Z0FRAN IVP PRN ×2 (11:00→13:00)
[2020-08-15] MEDS ORDERED: oxyCODONE/APAP 5/325MG (PERCOCET 5) TABLET PO PRN (11:00)
[2020-08-15] MEDS ORDERED: HYDR-3817 PO (11:00)
[2020-08-15] MEDS ORDERED: morphine INJ 10 MG/ML 1ML (SYR OR VIAL) IVP PRN ×2 (11:00)
--- NOTE | 2020-08-15 11:01 | Discharge Inst-Surgical ---
D/C Lap Instructions-SEAN New, Converted, or Re-Newed RX: RX on Chart Follow Up Appt in 2 weeks Activity as tolerated No driving for 24 hours No driving while on pain medications Incentive Spirometry use every 2 hours while awake Regular Diet Symptoms to Report: Fever over 101 degree F, Nausea/Vomiting Infection Signs and Symptoms to report: Increased redness, Foul odor of wound, Increased drainage Bathing instructions: May shower Operative Area Clean/Dry; Keep incision clean/dry If any problems/questions: Contact your physician or go to Emergency Room JOSÉ LUIS ESTRADA MD Aug 15, 2020 11:01
[2020-08-15] MEDS ORDERED: ESMOLOL 100 MG/10 ML (BREVIBLOC) VIAL ONE (11:47)
[2020-08-15] MEDS ORDERED: HYDROmorphone 2 MG/ML VIAL (DILAUDID) ONE ×2 (11:55→13:09)
[2020-08-15] MEDS ORDERED: ATROPINE INJ 0.4 MG/ML SDV ONE (12:17)
[2020-08-15] MEDS ORDERED: SUGAMMADEX 500 MG/5 ML VIAL (BRIDION) IV ONE (12:23)
--- NOTE | 2020-08-15 12:36 | Progress Note-Post Operative ---
Post-Operative Progess Note Surgeon (s)/Help Desk Rep (s) Surgeon JOSÉ LUIS ESTRADA MD Help Desk Rep: alex rosa ULTRASOUND TECH Pre-Operative Diagnosis bilateral reducible inguinal hernia Post-Operative Diagnosis bilateral reducible ing hernia Procedure & Operative Findings Date of Procedure 08/15/20 Procedure Performed/Findings laparoscopic bilateral inguinal hernia repair with mesh. Anesthesia Type get Estimated Blood Loss Estimated blood loss (mL): minimal Specimens/Packing Specimens Removed none JOSÉ LUIS ESTRADA MD Aug 15, 2020 12:36
[2020-08-15] MEDS ORDERED: HYDROmorphone 2 MG/ML VIAL (DILAUDID) IV ONE (13:00)
--- NOTE | 2020-08-15 13:47 | Anesthesia-General Post-Op ---
General Patient Condition Mental Status/LOC: Same as Preop Cardiovascular: Satisfactory Nausea/Vomiting: Absent Respiratory: Satisfactory Pain: Controlled Complications: Absent Post Op Complications Complications None Follow Up Care/Instructions Patient Instructions None needed. Anesthesia/Patient Condition Patient Condition Patient is doing well, no complaints, stable vital signs, no apparent adverse anesthesia problems. No complications reported per nursing. D/C home per [facility] [place] Criteria: Yes CHACHA TURNER CRNA Aug 15, 2020 13:47
--- NOTE | 2020-08-15 20:30 | OPERATIVE REPORT ---
DATE OF SERVICE: 08/15/2020 ATTENDING PRIMARY CARE PHYSICIAN: Osmany Jimenez DO PREOPERATIVE DIAGNOSIS: Bilateral reducible inguinal hernias. POSTOPERATIVE DIAGNOSIS: Bilateral reducible inguinal hernias. PROCEDURE: Laparoscopic bilateral inguinal hernia repair with mesh. SURGEON: José Luis Estrada MD [place]: Cristian Mcneal APRN. ANESTHESIA: General endotracheal. ESTIMATED BLOOD LOSS: Minimal. FINDINGS: Bilateral reducible indirect inguinal hernias, extensive adhesions towards the anterior abdominal wall from previous laparotomy incision. DISPOSITION: The patient tolerated the procedure well. INDICATIONS: The patient is a 74-year-old male who has had pain in the right lower abdominal quadrant for the past month. He had a CT scan performed, which did show a small hernia on the left inguinal region; however, he reported he had significant pain on the right inguinal region. Upon examination in the office, he was found to have bilateral small inguinal hernias. These were both reducible; however, painful to palpation. DESCRIPTION OF PROCEDURE: The patient was brought to the operating room, laid supine on the table. After adequate IV pain and sedative medications and general endotracheal intubation, the abdomen was prepped and draped in standard surgical fashion. A 0.5% Marcaine with epinephrine was then used to anesthetize the overlying skin in the left upper abdominal quadrant and a transverse skin incision made using a 15 blade. An area in the left lower abdomen was then anesthetized using 0.5% Marcaine with epinephrine and a transverse skin incision was made using 15 blade. An 0 silk suture was applied to the medial aspect incision for retraction and a Veress needle inserted with low opening pressure of 0 mmHg and the abdomen was then insufflated to 15 mmHg pressure. The Veress needle removed and a 5 mm XL trocar placed followed by a 5 mm 45-degree angle laparoscope visualizing the peritoneal cavity. A 4-quadrant abdominal exploration was performed. There were bilateral inguinal hernias with the right greater than left, both reducible and indirect. There were extensive adhesions towards the anterior abdominal wall. However, upon full relaxation as well as abdominal insufflation, there was no ventral abdominal incisional hernias identified. Under direct visualization, we then proceed to place bilateral 5 mm ports after the skin and peritoneal lining were anesthetized using 0.5% Marcaine with epinephrine and transverse skin incision was made using a 15 blade. The patient was then was then placed in Trendelenburg position and we first proceeded with repair of the left inguinal hernia. The peritoneal lining was then opened towards the conjoined tendon and inguinal ligament laterally using the Sonicision. We proceeded medially and until Nj's ligament was identified. We then proceeded with our inferior dissection identifying the cord and its surrounding contents and sparing them throughout the process. A medium size 3DMax polypropylene mesh was then placed through the 10 mm port site and tacked to Nj's ligament medially and the inguinal ligament laterally with visualization of good hemostasis. The peritoneal lining was then placed over the mesh and a few absorbable tacks placed to hold this in place with visualization of good hemostasis. We then proceeded with repair of the right inguinal hernia and the peritoneal lining was then opened similarly using the Sonicision towards the conjoined tendon and inguinal ligament laterally and towards the Nj's ligament medially. We then proceeded with inferior dissection encompassing the entire hernia sac and identifying the cord and its surrounding contents throughout the process. Good hemostasis was observed. A medium size 3DMax polypropylene mesh was then placed through the 10 mm port site and tacked to Nj's ligament medially and inguinal ligament laterally. The peritoneal lining was then placed over the mesh and a few absorbable tacks placed to hold this in place with visualization of good hemostasis. The 10 mm port site fascia and peritoneum were then closed under direct visualization using a Jorje-Jaki device and 0 Vicryl suture. The abdomen was desufflated and remaining ports removed. All skin incisions were closed using 4-0 Monocryl running subcuticular sutures. Wounds were then cleaned and covered with Dermabond. The patient tolerated the procedure well. We will start IV normal pain medication as well as a clear liquid diet. Once he is tolerating clears, has good pain control with oral pain medications, ambulating well, we will discharge him home. He will be instructed to do no heavy lifting or exertion for the next two weeks. 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
== END 2020-08-15 14:50 | disposition home or self-care (01) ==
LOC: SDC 09:22
PROVIDERS: ATTEND Surgery
DX: K40.20 Bilateral inguinal hernia, without obstruction or gangrene, not specified as recurrent (principal); C71.9 Malignant neoplasm of brain, unspecified; I10 Essential (primary) hypertension; I69.351 Hemiplegia and hemiparesis following cerebral infarction affecting right dominant side; E78.00 Pure hypercholesterolemia, unspecified; I25.2 Old myocardial infarction; I25.10 Atherosclerotic heart disease of native coronary artery without angina pectoris; Z87.891 Personal history of nicotine dependence; Z79.82 Long term (current) use of aspirin; Z79.899 Other long term (current) drug therapy; Z98.890 Other specified postprocedural states; Z90.49 Acquired absence of other specified parts of digestive tract; Z92.3 Personal history of irradiation; Z95.818 Presence of other cardiac implants and grafts; Z79.02 Long term (current) use of antithrombotics/antiplatelets
CPT/HCPCS: 49505; 87081; C1781 ×2

== ENCOUNTER → 2021-08-07 | Outpatient (CLI) | payer MEDICARE, OTHER ==
[~2021-08-07] MED LIST changes: +HYDR-3817 PO
== END ==
LOC: CARD 13:30
PROVIDERS: ATTEND Internal Medicine Cardiovascular Disease
DX: I35.1 Nonrheumatic aortic (valve) insufficiency (principal); I10 Essential (primary) hypertension; I25.10 Atherosclerotic heart disease of native coronary artery without angina pectoris
CPT/HCPCS: 93306

== ENCOUNTER → 2021-09-01 | Outpatient (CLI) | payer MEDICARE, OTHER ==
[~2021-09-01] VITALS: Ht 162 cm; Wt 78.0 kg
[~2021-09-01] MED LIST changes: +REGADENOSON 0.4 MG/5 ML SYR (LEXISCAN) IV ONE
[2021-09-01] MEDS: CATHETER FLUSH 10 ML SYR IVP PRN ×2 (07:40→09:07)
[2021-09-01 09:06] VITALS: BP 187/83
--- NOTE | 2021-09-01 11:15 | Cardiology Stress Test Report ---
Stress Test Report Date of Procedure/Referring: Date of Procedure: September 01, 2021 PCP Priya Beltre MD Admitting Physician Osmany Jimenez DO Indications: CP Baseline Heart Rate: 63 Baseline Blood Pressure: Blood Pressure Systolic: 187 Blood Pressure Diastolic: 83 Baseline Vitals Vital Signs Date Time Temp Pulse Resp B/P (MAP) Pulse Ox O2 Delivery O2 Flow Rate FiO2 09/01/21 09:06 47 16 187/83 (117) 97 Room Air Baseline EKG: Baseline EKG: NSR Summary After explaining the procedure to the patient, he signed a consent and then brought to the stress nuclear laboratory. Patient received 0.4 mg Lexiscan for stress test, ECG, heart rate and blood pressure were monitored continuously. Resting and stress dose of radio tracer were injected, imaging was acquired and reviewed in short axis, horizontal long axis and vertical long axis views. TID: 1.03 SSS: 19 SDS: 1 EF: 54 1. Patient tolerated Lexiscan well 2. Diaphragmatic attenuation with fixed defect involving the whole inferior wall and inferoapical segment with a small area of reversibility at the mid inferior wall. The abnormal stress test is probably secondary to the diaphragmatic attenuation, overall nondiagnostic study 3. Normal left ventricular size with mild hypokinesia of the inferior wall, ejection fraction 54% Copy Copies To 1: OSMANY JIMENEZ BASHAR J MD September 01, 2021 11:15
== END ==
LOC: CARD 07:18
PROVIDERS: ATTEND Internal Medicine Cardiovascular Disease
DX: I25.10 Atherosclerotic heart disease of native coronary artery without angina pectoris (principal); I10 Essential (primary) hypertension
CPT/HCPCS: 78452; 93017; A9502

== ENCOUNTER 2021-12-19 20:47 | Inpatient (IN) | payer MEDICARE ==
[~2021-12-19] VITALS: Ht 167 cm; Wt 77.9 kg
[~2021-12-19 20:47] MED LIST changes: -REGADENOSON 0.4 MG/5 ML SYR (LEXISCAN) IV ONE
[2021-12-19] MEDS ORDERED: LACTATED RINGERS 1,000 ML IV ONE (21:15)
[2021-12-19 21:20] LABS: BASOPHILS % (AUTO) 0 % (0-10); EOSINOPHILS % (AUTO) 1 % (0-10); HEMATOCRIT 43 % (40-54); HEMOGLOBIN 14.7 g/dL (13.3-17.7); LYMPHOCYTES # (AUTO) 1.9 10^3/uL (1.0-4.0); LYMPHOCYTES % (AUTO) 22 % (12-44); MEAN CORPUSCULAR HEMOGLOBIN 30 pg (25-34); MEAN CORPUSCULAR HGB CONC 34 g/dL (32-36); MEAN CORPUSCULAR VOLUME 89 fL (80-99); MEAN PLATELET VOLUME 10.1 fL (9.0-12.2); MONOCYTES # (AUTO) 1.1 10^3/uL (0.0-1.0); MONOCYTES % (AUTO) 12 % (0-12); NEUTROPHILS # (AUTO) 5.6 10^3/uL (1.8-7.8); NEUTROPHILS % (AUTO) 65 % (42-75); PLATELET COUNT 234 10^3/uL (130-400); WHITE BLOOD COUNT 8.7 10^3/uL (4.3-11.0)
--- NOTE | 2021-12-19 21:20 | ED General ---
General Stated Complaint: STROKE Source of Information: Patient, EMS Exam Limitations: Other History of Present Illness Date Seen by Provider: Dec 19, 2021 Time Seen by Provider: 21:12 Initial Comments Patient to the ER by EMS from home with chief complaint that his noticed he was not acting right, not speaking complaining of weakness and urinated on himself. No fevers or chills nausea or vomiting. No cough shortness of air. No known sick contacts. He has a history of stroke, meningioma resections in 2014 and 2017 and [place]. He does not follow with neurosurgery or neurology anymore as he was told that there is nothing further they could do. They have done radiation therapy to his head in the past and when they spoke about doing it again they thought was a 50-50 chance it could make things worse so they elected not to do it. Surgery at [place], [place] and he is also seen a neurosurgeon and [place], [place]. He can answer his name and date of he denies any lateralizing symptoms. He just started speaking to EMS on route about 2109. He is not slurring his speech. He has short confused answers. But does not nominate items and has difficulty expressing himself. His states that when she got up this morning around 9 she noticed he was already up on the back porch and she called him and for breakfast but he did not get up. It was not till later that she realized he did not get up and come in because he was not able to get up and come in or speak for himself. noted that he has been having incontinence of bowel and bladder here lately as well as has had more falls than usual. Primary care by Dr. SOLIS and cardiology by Dr. Beltre. Allergies and Home Medications Allergies Coded Allergies: No Known Drug Allergies (Unverified , 05/16/11) Patient Home Medication List Home Medication List Reviewed: Yes Aspirin (Aspirin EC) 81 Mg Tablet., 81 MG PO DAILY, (Reported) Entered as Reported by: JESU HANCOCK on 01/21/18 1057 Last Action: Last Taken Edited Clopidogrel Bisulfate (Clopidogrel) 75 Mg Tablet, 75 MG PO DAILY, (Reported) Entered as Reported by: PUNEET ARANDA on 08/12/20 1145 Last Action: Last Taken Edited Dexamethasone (Dexamethasone) 4 Mg Tablet, 4 MG PO Q8H Prescribed by: TOAN PAUL on 12/20/21 1156 Levetiracetam (Keppra) 1,000 Mg Tablet, 1,000 MG PO BID, (Reported) Entered as Reported by: Miracle Howard on 12/20/21 0755 Last Action: New Order Lorazepam (Lorazepam Intensol) 2 Mg/Ml Oral.conc, 2 MG PO Q2H PRN for ANXIETY/AGITATION/SEIZURE Prescribed by: TOAN PAUL on 12/20/21 1157 Metoprolol Succinate (Metoprolol Succinate) 25 Mg Tab.er.24h, 25 MG PO DAILY, (Reported) Entered as Reported by: JESU HANCOCK on 01/21/18 103 Last Action: Last Taken Edited Mirabegron (Myrbetriq) 50 Mg Tab.er.24h, 50 MG PO DAILY, (Reported) Entered as Reported by: Miracle Howard on 12/20/21 9824 Last Action: New Order Morphine Sulfate (Morphine Conc. 20mg/ml) 100 Mg/5 Ml (20 Mg/Ml) Solution, 10 MG PO Q2H PRN for PAIN OR AIR HUNGER Prescribed by: TOAN PAUL on 12/20/21 1157 Pantoprazole Sodium (Pantoprazole Sodium) 40 Mg Tablet.dr, 40 MG PO DAILY, (Reported) Entered as Reported by: JESU HANCOCK on 01/21/18 103 Last Action: Last Taken Edited Discontinued Medications Atorvastatin Calcium (Atorvastatin Calcium) 80 Mg Tablet, 80 MG PO HS, (Reported) Entered as Reported by: JESU HANCOCK on 01/21/18 103 Last Action: Last Taken Edited Enalapril Maleate (Enalapril Maleate) 10 Mg Tablet, 10 MG PO DAILY, (Reported) Entered as Reported by: JESU HANCOCK on 01/21/18 103 Last Action: Last Taken Edited [place] 3 Polyunsat Fatty Acids (Fish Oil 1,000 mg Capsule) 1,000 Mg Cap, 2,000 MG PO DAILY, (Reported) Entered as Reported by: JESU HANCOCK on 01/21/18 105 Last Action: Last Taken Edited Review of Systems Review of Systems Constitutional: No chills, No diaphoresis EENTM: No ear discharge, No ear pain Respiratory: No cough, No short of breath Cardiovascular: No chest pain, No edema; Hx of Intervention; No palpitations; vascular heart diseas Gastrointestinal: No abdominal pain, No constipation, No diarrhea, No nausea Genitourinary: No decreased output, No discharge Musculoskeletal: No back pain, No joint pain Skin: No pruritus, No rash All Other Systems Reviewed Negative Unless Noted: Yes Past Yxxqhwh-Uezjuc-Yvgayk Hx Patient Social History Tobacco Use?: No Past Medical History Surgeries: Yes (aortic anuerysm, brain tumor x2 removed, ) Coronary Stent, Gallbladder Respiratory: No Currently Using CPAP: No Currently Using BIPAP: No Cardiac: Yes (heart stent 2013) Coronary Artery Disease, Heart Attack, High Cholesterol, Hypertension Neurological: Yes Brain Tumor, Stroke Reproductive Disorders: No Genitourinary: No Gastrointestinal: Yes Gastroesophageal Reflux, Chronic Diarrhea Musculoskeletal: No Endocrine: No HEENT: No (dentures) Cancer: Yes Brain Did You Recieve Any Treatments: Yes What Type of Treatment Did You: Radiation Psychosocial: No Integumentary: No Blood Disorders: No Adverse Reaction/Blood Tranf: No Family Medical History Heart Disease, Cancer, CAD Over 55 Years Old Physical Exam Vital Signs Vital Signs - First Documented 12/19/21 21:07 Temp 37.0 Pulse 86 Resp 19 B/P (MAP) 116/80 (92) Pulse Ox 89 O2 Delivery Nasal Cannula O2 Flow Rate 3.00 FiO2 89 Capillary Refill : Height, Weight, BMI Height: 5'5.00" Weight: 181lbs. 8.0oz. 82.777900rz; 29.72 BMI Method:Stated General Appearance: Chronically ill, Mild Distress Eyes: Bilateral Eye Normal Inspection, Bilateral Eye PERRL, Bilateral Eye EOMI HEENT: PERRL/EOMI, TMs Normal, Normal ENT Inspection, Pharynx Normal, Moist Mucous Membranes Neck: Full Range of Motion, Normal Inspection Respiratory: Lungs Clear, Normal Breath Sounds, No Accessory Muscle Use, No Respiratory Distress Cardiovascular: Regular Rate, Rhythm, No Edema, Normal Peripheral Pulses Gastrointestinal: Normal Bowel Sounds, Non Tender, Soft Extremity: Normal Capillary Refill, Normal Inspection Neurologic/Psychiatric: Alert, Other (Oriented to self, echoes questions asked him. Struggles to identify objects but can point on a picture to what is wrong. Aphasic. Not mute.) Skin: Normal Color, Warm/Dry Progress/Results/Core Measures Suspected Sepsis SIRS Temperature: Pulse: Respiratory Rate: Laboratory Tests 12/19/21 21:17: White Blood Count 8.7 Blood Pressure / Mean: Laboratory Tests 12/19/21 21:17: Creatinine 1.03, Platelet Count 234, Total Bilirubin 0.8 Results/Orders Lab Results Laboratory Tests Test 12/19/21 21:17 12/19/21 21:24 12/19/21 21:32 Range/Units White Blood Count 8.7 4.3-11.0 10^3/uL Red Blood Count 4.84 4.30-5.52 10^6/uL Hemoglobin 14.7 13.3-17.7 g/dL Hematocrit 43 40-54 % Mean Corpuscular Volume 89 80-99 fL Mean Corpuscular Hemoglobin 30 25-34 pg Mean Corpuscular Hemoglobin Concent 34 32-36 g/dL Red Cell Distribution Width 13.3 10.0-14.5 % Platelet Count 234 130-400 10^3/uL Mean Platelet Volume 10.1 9.0-12.2 fL Immature Granulocyte % (Auto) 0 % Neutrophils (%) (Auto) 65 42-75 % Lymphocytes (%) (Auto) 22 12-44 % Monocytes (%) (Auto) 12 0-12 % Eosinophils (%) (Auto) 1 0-10 % Basophils (%) (Auto) 0 0-10 % Neutrophils # (Auto) 5.6 1.8-7.8 10^3/uL Lymphocytes # (Auto) 1.9 1.0-4.0 10^3/uL Monocytes # (Auto) 1.1 H 0.0-1.0 10^3/uL Eosinophils # (Auto) 0.0 0.0-0.3 10^3/uL Basophils # (Auto) 0.0 0.0-0.1 10^3/uL Immature Granulocyte # (Auto) 0.0 0.0-0.1 10^3/uL Sodium Level 139 135-145 MMOL/L Potassium Level 4.3 3.6-5.0 MMOL/L Chloride Level 104 98-107 MMOL/L Carbon Dioxide Level 19 L 21-32 MMOL/L Anion Gap 16 H 5-14 MMOL/L Blood Urea Nitrogen 13 7-18 MG/DL Creatinine 1.03 0.60-1.30 MG/DL Estimat Glomerular Filtration Rate 74 BUN/Creatinine Ratio 13 Glucose Level 127 H 70-105 MG/DL Calcium Level 9.1 8.5-10.1 MG/DL Corrected Calcium 9.3 8.5-10.1 MG/DL Total Bilirubin 0.8 0.1-1.0 MG/DL Aspartate Amino Transf (AST/SGOT) 21 5-34 U/L Alanine Aminotransferase (ALT/SGPT) 24 0-55 U/L Alkaline Phosphatase 73 40-136 U/L Troponin I < 0.028 <0.028 NG/ML C-Reactive Protein High Sensitivity 2.24 H 0.00-0.50 MG/DL Total Protein 6.7 6.4-8.2 GM/DL Albumin 3.7 3.2-4.5 GM/DL Serum Alcohol < 10 <10 MG/DL Influenza Type A (RT-PCR) Not Detected Not Detecte Influenza Type B (RT-PCR) Not Detected Not Detecte SARS-CoV-2 RNA (RT-PCR) Not Detected Not Detecte Urine Color YELLOW Urine Clarity SL CLOUDY Urine pH 5.0 5-9 Urine Specific [place] >=1.030 1.016-1.022 Urine Protein 1+ H NEGATIVE Urine Glucose (UA) NEGATIVE NEGATIVE Urine Ketones NEGATIVE NEGATIVE Urine Nitrite NEGATIVE NEGATIVE Urine Bilirubin NEGATIVE NEGATIVE Urine Urobilinogen 0.2 < = 1.0 MG/DL Urine Leukocyte Esterase NEGATIVE NEGATIVE Urine RBC (Auto) NEGATIVE NEGATIVE Urine RBC 0-2 /HPF Urine WBC 2-5 /HPF Urine Squamous Epithelial Cells 2-5 /HPF Urine Renal Epithelial Cells NONE /HPF Urine Crystals NONE /LPF Urine Bacteria MODERATE H /HPF Urine Casts NONE /LPF Urine Mucus MODERATE H /LPF Urine Culture Indicated YES Urine Opiates Screen NEGATIVE NEGATIVE Urine Oxycodone Screen NEGATIVE NEGATIVE Urine Methadone Screen NEGATIVE NEGATIVE Urine Propoxyphene Screen NEGATIVE NEGATIVE Urine Barbiturates Screen NEGATIVE NEGATIVE Ur Tricyclic Antidepressants Screen NEGATIVE NEGATIVE Urine Phencyclidine Screen NEGATIVE NEGATIVE Urine Amphetamines Screen NEGATIVE NEGATIVE Urine Methamphetamines Screen NEGATIVE NEGATIVE Urine Benzodiazepines Screen NEGATIVE NEGATIVE Urine Cocaine Screen NEGATIVE NEGATIVE Urine Cannabinoids Screen NEGATIVE NEGATIVE Micro Results Microbiology 12/19/21 Blood Culture - Preliminary, Resulted No growth 12/19/21 Blood Culture - Preliminary, Resulted Staph, Coag Neg ([employer]CH[employer]OW [employer]IATE) 12/19/21 Urine Culture - Final, Complete NO GROWTH My Orders Orders - GAGAN THOMPSON Ct Head Wo (12/19/21 21:11) Cbc With Automated Diff (12/19/21 21:11) Comprehensive Metabolic Panel (12/19/21 21:11) Hs C Reactive Protein (12/19/21 21:11) Ua Culture If Indicated (12/19/21 21:11) Blood Culture (12/19/21 21:11) Chest 1 View, Ap/Pa Only (12/19/21 21:11) Continuous Ekg Monitoring (12/19/21 21:11) Ekg Tracing (12/19/21 21:11) Troponin I [place] (12/19/21 21:11) Alcohol (12/19/21 21:11) Drug Screen Stat (Urine) (12/19/21 21:11) Covid 19 Inhouse Test (12/19/21 21:11) Influenza A And B By Pcr (12/19/21 21:11) Ed Iv/Invasive Line Start (12/19/21 21:15) Lactated Ringers (Lr 1000 Ml Iv Solution (12/19/21 21:15) Urine Culture (12/19/21 21:32) Ct Angio Head/Neck (12/19/21 22:40) Iohexol Injection (Omnipaque 350 Mg/Ml 1 (12/19/21 23:30) Received Contrast (Hold Metformin- Contr (12/19/21 23:30) Ns (Ivpb) (Sodium Chloride 0.9% Ivpb Bag (12/19/21 23:30) Levetiracetam Injection (Keppra Injectio (12/20/21 01:21) Methylprednisolone Sod Succ (Solu-Medrol (12/20/21 01:30) Medications Given in ED Vital Signs/I&O 12/19/21 12/19/21 12/19/21 21:07 21:07 22:23 Temp 37.0 Pulse 86 Resp 19 17 B/P (MAP) 116/80 (92) Pulse Ox 89 O2 Delivery Nasal Cannula Room Air O2 Flow Rate 3.00 FiO2 89 Capillary Refill : Progress Note #1: Time: 22:28 Progress Note NIH of 6. Edematous findings on CT. MRI not available till Wednesday. We will call stroke neurologist versus neurosurgeon on-call at for recommendations and plan. 2235: Discussed the case with Dr. Payne, neurologist on-call at [facility]. She feels it is unlikely to be a stroke however we can get a CT angiogram of the head and neck to rule out any large clots or large vessel occlusions. If this is negative she would recommend consultation with neurosurgery. She agrees not to do tPA at this time Progress Note #2: Time: 22:54 Progress Note We had a candid conversation with the and son who have already had conversations years ago that this patient has actually not been very conversational for the past year and a half. It was decided at that time after consulting with surgeons in [facility] and [place] that surgery would not be an intervention in the future. After having a long conversation with him and feels at this time if we can rule out obvious large stroke that they would likely go more palliative route and prefer not to go up to or out of town if possible. Progress Note #3: Time: 00:35 Progress Note Called [facility] and discussed the imaging findings. We will get a consult with neurosurgery. Family and the patient seem to be leaning towards a more palliative approach. Progress Note #4: Time: 01:00 Progress Note Discussed the case with Dr. Rutherford, neurosurgeon on-call at [facility]. His concerns are for potential of a seizure, stroke or edema as the source of the patient's symptoms. He is more than happy to consult on the case if we want to transfer for a medicine admit or if the patient is more inclined to do a local work-up and we can get an MRI and initiate steroids tonight then this could also work. ECG Initial ECG Impression Date: Dec 19, 2021 Initial ECG Impression Time: 21:15 Initial ECG Rate: 91 Initial ECG Rhythm: Normal Sinus Initial ECG Intervals: RI (214) Initial ECG Impression: Nonspecific Changes, 1st Degree AV Block Comment Right bundle branch block with first-degree AV block. Sinus rhythm but no clinically relevant ST changes. Diagnostic Imaging Diagonstic Imaging: Xray Plain Films/CT/US/NM/MRI: chest Comments [facility], [place] NAME: THERESA COSBY MED REC#: [id number] PT STATUS: REG ER : 1945 PHYSICIAN: GAGAN THOMPSON MD ADMIT DATE: 12/19/21/ER Draft Date of Exam:12/19/21 CHEST 1 VIEW, AP/PA ONLY INDICATION: Delirium, neurological deficit. TECHNIQUE: Single view chest 9:56 PM. CORRELATION STUDY: 01/26/2018. FINDINGS: The heart size, mediastinal configuration and pulmonary vascularity are within normal limits. Likely overlapping summation shadows within the mid lung kessler. Perhaps minimal atelectasis or less likely infiltrate at the left lung base along with perhaps trace left pleural effusion. IMPRESSION: Questioned minimal atelectasis versus infiltrate and effusion at left lung base. Findings superimposed on likely chronic lung disease. Dictated on workstation # [id number] Dict: 12/19/212200 Trans: 12/19/212203 [facility] [id number] Interpreted by: DES MONTANA DO Electronically signed by: Reviewed: Reviewed by Me Diagonstic Imaging: CT Plain Films/CT/US/NM/MRI: head Comments [facility] [place] NAME: ALEATHERESA J MED REC#: [id number] PT STATUS: REG ER : 1945 PHYSICIAN: GAGAN THOMPSON MD ADMIT DATE: 12/19/21/ER Draft Date of Exam:12/19/21 CT HEAD WO PROCEDURE: CT head without contrast. TECHNIQUE: Multiple contiguous axial images were obtained through the brain without the use of intravenous contrast. Auto Exposure Controls were utilized during the CT exam to meet ALARA standards for radiation dose reduction. INDICATION: 76-year-old male, neurological deficit. CORRELATION STUDY: None. FINDINGS: Extensive prior frontal craniotomy defect. There is marked abnormal appearance about the brain parenchyma particularly in the bilateral frontal regions. There is loss of normal cortical margins with diffuse low-attenuation throughout the majority of the bilateral frontal lobes and extends into the right temporal lobe. There is loss of the normal dividing interhemispheric fissure and falx. Posteriorly, slight asymmetric atrophic change of the left parietal lobe compared to the right. Otherwise unremarkable. Occipital lobes and posterior fossa appear to be generally unremarkable apart from atrophic change. No suggestion for acute intracranial hemorrhage. There is distortion of the right frontal sinus with opacification and filling of the right frontal sinus. IMPRESSION: Markedly abnormal appearance about the particularly bilateral frontal lobes and right temporal lobe which contains diffuse loss of normal sulci pattern and edema. There has been apparent prior extensive bifrontal craniotomy defects. Some of this may be on a postoperative basis, however does raise concern for more acute superimposed edema, perhaps from underlying mass. Correlation with patient's presumed medical history. If further imaging evaluation is desired, MRI would be recommended. Dictated on workstation # [id number] Dict: 12/19/212148 Trans: 12/19/212199 [facility] [id number] Interpreted by: DES MONTANA DO Electronically signed by: Reviewed: Reviewed by Me Diagonstic Imaging: CT (angio) Plain Films/CT/US/NM/MRI: head (neck) Comments Enhancing mass lesions measuring between 1 and 3 cm thick in the inferior aspect of the right anterior cranial fossa and anterior aspect of the right middle cranial fossa. There is similar enhancing neoplasm along the anterior aspect of the frontal lobes bilaterally more superiorly which extends back along the interhemispheric falx. This is consistent with malignancy. Correlate with previous pathology. Surgical changes from previous bilateral frontal craniotomies. No acute large vessel thrombus identified. No acute findings in the arteries of the neck. [facility] [place] [facility]: THERESA COSBY [facility] REC#: [id number] PT STATUS: ADM IN : 1945 PHYSICIAN: GAGAN THOMPSON MD ADMIT DATE: 12/20/21 Signed Date of Exam:12/19/21 CT ANGIO HEAD/NECK PROCEDURE: CT angiography of the head and CT angiography of the neck with and without contrast. TECHNIQUE: Contiguous noncontrast images were obtained from the skull base through the vertex. After intravenous contrast administration, helical CT angiography of the neck was performed. Source data was reformatted into 3D MIP projections. Delayed post contrast acquisition was also obtained. Auto Exposure Controls were utilized during the CT exam to meet ALARA standards for radiation dose reduction. INDICATION: Stroke-like symptoms. Correlation is made with head CT from 12/19/2021. There are numerous enhancing masses identified in the bilateral frontal lobes. Largest mass located in the right frontal lobe extending into the anterior right temporal lobe measuring approximately 6.5 x 3.9 cm. There is abnormal irregular enhancement along the interhemispheric falx anteriorly measuring 5.3 x 2.1 cm. There appears to be extra-axial lesions along the right frontal convexity. Extensive edema bilateral frontal lobes and right temporal lobe is noted correlating with areas of low density noted on CT. There is mass effect with midline shift right to left of by 4 to 5 mm. Cisterns are patent. Patient has had bilateral frontal craniotomies. CT angiographic portion of the study does show three-vessel branching pattern to the aortic arch. Both the right and left common carotid arteries are patent. There is some mild calcified plaque at the carotid bifurcations bilaterally. Right and left internal carotid arteries appear to be patent. There appears to be tumor vascularity in the right frontal lobe. Right and left posterior cerebral arteries appear to be patent. There is mass effect on the right anterior cerebral artery but the anterior cerebral arteries appear to be patent. Left middle cerebral artery is patent. There is some mass effect on the M2 segments of the right middle cerebral artery, however, these appear to be patent. No large vessel occlusion or thromboembolism is seen. The basilar artery is patent. Left vertebral artery is dominant. Bilateral vertebral arteries appear to be patent. IMPRESSION: Postop changes of bilateral frontal craniotomies. There are multiple enhancing masses anteriorly which appear to be intraparenchymal as well as along the convexities on the right frontal lobe as well as along the anterior right temporal lobe and interhemispheric falx. Findings are suggestive of neoplasm. There is extensive vasogenic edema bilateral frontal lobes. No definite thromboembolism or large vessel occlusion is identified. Dictated by: Dictated on workstation # [id number] Dict: 12/20/21 0603 Trans: 12/20/21 1610 [facility] [id number] Interpreted by: GEOVANNI DIXON MD Electronically signed by: GEOVANNI DIXON MD 12/20/21 8289 Reviewed: [facility] read[facility] Reviewed by Me Departure Communication (Admissions) Time/Spoke to Admitting Phy: 01:35 0120: Left voicemail 0135: Discussed the case with Dr. Paul who agrees to admit the patient to the floor with steroids, Keppra and plan to get an MRI. We did discuss the family's intentions that if the symptoms are all from his brain tumors that they would not pursue aggressive therapy with radiation therapy or surgery and the patient is in agreement with this plan. Plan from the neurosurgeon would be to get an MRI with and without IV contrast of the brain and rule out seizure or stroke as a source of his symptoms. Impression Primary Impression: Brain tumor Additional Impressions: Edematous, brain Unknown when suspected stroke patient was last well Suspected seizure Aphasia determined by examination Weakness of right lower extremity Disposition: ADMITTED INPATIENT Condition: Stable Admissions Decision to Admit Reason: Admit from ER (General) Decision to Admit/Date: Dec 20, 2021 Time/Decision to Admit Time: 01:10 Departure-Patient Inst. Referrals: NANCY SOLIS DO (PCP/Family) Primary Care Physician Scripts Lorazepam (Lorazepam Intensol) 2 Mg/Ml Oral.conc 2 MG PO Q2H PRN for ANXIETY/AGITATION/SEIZURE for 7 Days, #30 ML Prov: TOAN PAUL MD 12/20/21 Morphine Sulfate (Morphine Conc. 20mg/ml) 100 Mg/5 Ml (20 Mg/Ml) Solution 10 MG PO Q2H PRN for PAIN OR AIR HUNGER for 7 Days, #30 ML Prov: TOAN PAUL MD 12/20/21 Dexamethasone (Dexamethasone) 4 Mg Tablet 4 MG PO Q8H for 30 Days, #90 TAB Prov: TOAN PAUL MD 12/20/21 Stroke Onset of Symptoms Date of Onset of Symptoms: Dec 19, 2021 Time of Symptom Onset: 14:00 Onset of Symptoms: Yes NIH Stroke Scale Assessment Select: Initial Level of Consciousness: 0=Alert (0), Level of Consciousness- Questions: 0=Answers both month/age (0), LOC Commands: 0=Performs both tasks (0), Gaze: Normal (0), Visual Kessler: 0=No visual loss (0), Facial Movement (Facial Paresis): 0=Normal symmetrical mnt (0), Motor Function-Arms Right: 0=No drift (0), Motor Function-Arms Left: 0=No drift (0), Motor Function-Legs Right: 4=No movement (4), Motor Function-Legs Left: 0=No drift (0), Limb Ataxia: 0=Absent (0), Sensory: 0=Normal:no loss (0), Best Language: 2=Severe aphasia (2), Dysarthria: 0=Normal (0), Extinction & Inattention: 0=No abnormality (0), Total: 6 Stroke Thrombolytic Exclusion Age 18 or Over: No Acute intenal hemorrhage: No History of CVA: Yes Uncontrolled Coagulation Defec: No Intracranial Hemorrhage: No Severe Hypertension: No GI or Bleed: No Subarachnoid Hemorrhage: No Intracranial Neoplasm/Aneurysm: Yes (History of meningioma) Oral Anticoagulants: No Surgery or Trauma: No Puncture of Non-Compressible V: No Recent CPR: No Diabetic Hemorrhagic Retinopat: No Organ Biopsy: No Recent Obstetric Delivery: No Glucose: No (121) Significant Hepatic Dysfunctio: No NIH Stoke Scale >22: No Bacterial Endocarditis: No Pericarditis: No Improving Symptoms: Yes Platelets: No TPA Contraindication: Yes IV - TPa Received IV - TPa Procedure Performed?: No (Outside the window of time) GAGAN THOMPSON J Dec 19, 2021 21:20
[2021-12-19 21:23] LABS: ALBUMIN 3.7 GM/DL (3.2-4.5); CHLORIDE 104 MMOL/L (98-107); POTASSIUM 4.3 MMOL/L (3.6-5.0); SODIUM 139 MMOL/L (135-145)
[2021-12-19 21:24] LABS: CALCIUM 9.1 MG/DL (8.5-10.1)
[2021-12-19 21:25] LABS: GLUCOSE 127 MG/DL (70-105); TOTAL PROTEIN 6.7 GM/DL (6.4-8.2)
[2021-12-19 21:26] LABS: CARBON DIOXIDE 19 MMOL/L (21-32)
[2021-12-19 21:27] LABS: BILIRUBIN,TOTAL 0.8 MG/DL (0.1-1.0)
[2021-12-19 21:29] LABS: ALKALINE PHOSPHATASE 73 U/L (40-136); CREATININE SERUM 1.03 MG/DL (0.60-1.30); GFR ESTIMATED 74
[2021-12-19 21:30] LABS: BUN/CREATININE RATIO 13
[2021-12-19 21:32] LABS: ALANINE AMINOTRANSFERASE 24 U/L (0-55)
[2021-12-19 21:35] LABS: BILIRUBIN,URINE NEGATIVE (NEGATIVE); CLARITY,URINE SL CLOUDY; COLOR,URINE YELLOW; GLUCOSE, URINE (UA) NEGATIVE (NEGATIVE); KETONES,URINE NEGATIVE (NEGATIVE); LEUKOCYTE ESTERASE ,URINE NEGATIVE (NEGATIVE); NITRITE,URINE NEGATIVE (NEGATIVE); PROTEIN,URINE 1+ (NEGATIVE)
[2021-12-19 21:43] LABS: BACTERIA,URINE MODERATE /HPF; RBC,URINE 0-2 /HPF
[2021-12-19 21:56] LABS: AMPHETAMINE SCREEN, URINE NEGATIVE (NEGATIVE); BARBITURATE SCREEN URINE NEGATIVE (NEGATIVE); BENZODIAZEPINES SCREEN URINE NEGATIVE (NEGATIVE); CANNABINOID SCREEN, URINE NEGATIVE (NEGATIVE); COCAINE SCREEN URINE NEGATIVE (NEGATIVE); METHADONE STAT NEGATIVE (NEGATIVE); OPIATE SCREEN URINE NEGATIVE (NEGATIVE); OXYCODONE STAT NEGATIVE (NEGATIVE); PROPOXYPHENE STAT NEGATIVE (NEGATIVE); TRICYCLIC ANTIDEPRESSANTS SCRE NEGATIVE (NEGATIVE)
--- NOTE | 2021-12-19 22:00 | Diagnostic Imaging Report ---
PROCEDURE: CT head without contrast. TECHNIQUE: Multiple contiguous axial images were obtained through the brain without the use of intravenous contrast. Auto Exposure Controls were utilized during the CT exam to meet ALARA standards for radiation dose reduction. INDICATION: 76-year-old male, neurological deficit. CORRELATION STUDY: None. FINDINGS: Extensive prior frontal craniotomy defect. There is marked abnormal appearance about the brain parenchyma particularly in the bilateral frontal regions. There is loss of normal cortical margins with diffuse low-attenuation throughout the majority of the bilateral frontal lobes and extends into the right temporal lobe. There is loss of the normal dividing interhemispheric fissure and falx. Posteriorly, slight asymmetric atrophic change of the left parietal lobe compared to the right. Otherwise unremarkable. Occipital lobes and posterior fossa appear to be generally unremarkable apart from atrophic change. No suggestion for acute intracranial hemorrhage. There is distortion of the right frontal sinus with opacification and filling of the right frontal sinus. IMPRESSION: Markedly abnormal appearance about the particularly bilateral frontal lobes and right temporal lobe which contains diffuse loss of normal sulci pattern and edema. There has been apparent prior extensive bifrontal craniotomy defects. Some of this may be on a postoperative basis, however does raise concern for more acute superimposed edema, perhaps from underlying mass. Correlation with patient's presumed medical history. If further imaging evaluation is desired, MRI would be recommended. Dictated by: Dictated on workstation # [id number]
--- NOTE | 2021-12-19 22:05 | Diagnostic Imaging Report ---
INDICATION: Delirium, neurological deficit. TECHNIQUE: Single view chest 9:56 PM. CORRELATION STUDY: 01/26/2018. FINDINGS: The heart size, mediastinal configuration and pulmonary vascularity are within normal limits. Likely overlapping summation shadows within the mid lung [place]. Perhaps minimal atelectasis or less likely infiltrate at the left lung base along with perhaps trace left pleural effusion. IMPRESSION: Questioned minimal atelectasis versus infiltrate and effusion at left lung base. Findings superimposed on likely chronic lung disease. Dictated by: Dictated on workstation # [id number]
[2021-12-19] MEDS ORDERED: IOHEXOL 350 MG/ML 100 ML (OMNIPAQUE 350) VIAL IV ONE (23:30)
[2021-12-19] MEDS ORDERED: NS 100 ML (IVPB) BAG IV ONE (23:30)
[2021-12-19] MEDS ORDERED: HOLD METFORMIN - RECEIVED CONTRAST 20 ML VIAL IV SCH (23:30)
[2021-12-20] MEDS ORDERED: methylPREDNISolone 125 MG (Solu-MEDROL) VIAL IVP ONE (01:30)
[2021-12-20] MEDS ORDERED: hydrALAZINE (APESOLINE) 20 MG/ML VIAL IV ONE (02:00)
[2021-12-20] MEDS ORDERED: ACETAMINOPHEN 650 MG SUPP (TYLENOL) PR PRN ×2 (02:45)
[2021-12-20] MEDS ORDERED: ONDANSETRON 4 MG/2 ML (SDV) Z0FRAN IV PRN (02:45)
[2021-12-20] MEDS ORDERED: ACETAMINOPHEN 325 MG TABLET PO PRN ×2 (02:45)
[2021-12-20] MEDS ORDERED: CATHETER FLUSH 10 ML SYR IVP PRN (02:45)
[2021-12-20 03:34] VITALS: BP 151/75
--- NOTE | 2021-12-20 06:22 | Diagnostic Imaging Report ---
PROCEDURE: CT angiography of the head and CT angiography of the neck with and without contrast. TECHNIQUE: Contiguous noncontrast images were obtained from the skull base through the vertex. After intravenous contrast administration, helical CT angiography of the neck was performed. Source data was reformatted into 3D MIP projections. Delayed post contrast acquisition was also obtained. Auto Exposure Controls were utilized during the CT exam to meet ALARA standards for radiation dose reduction. INDICATION: Stroke-like symptoms. Correlation is made with head CT from 12/19/2021. There are numerous enhancing masses identified in the bilateral frontal lobes. Largest mass located in the right frontal lobe extending into the anterior right temporal lobe measuring approximately 6.5 x 3.9 cm. There is abnormal irregular enhancement along the interhemispheric falx anteriorly measuring 5.3 x 2.1 cm. There appears to be extra-axial lesions along the right frontal convexity. Extensive edema bilateral frontal lobes and right temporal lobe is noted correlating with areas of low density noted on CT. There is mass effect with midline shift right to left of by 4 to 5 mm. Cisterns are patent. Patient has had bilateral frontal craniotomies. CT angiographic portion of the study does show three-vessel branching pattern to the aortic arch. Both the right and left common carotid arteries are patent. There is some mild calcified plaque at the carotid bifurcations bilaterally. Right and left internal carotid arteries appear to be patent. There appears to be tumor vascularity in the right frontal lobe. Right and left posterior cerebral arteries appear to be patent. There is mass effect on the right anterior cerebral artery but the anterior cerebral arteries appear to be patent. Left middle cerebral artery is patent. There is some mass effect on the M2 segments of the right middle cerebral artery, however, these appear to be patent. No large vessel occlusion or thromboembolism is seen. The basilar artery is patent. Left vertebral artery is dominant. Bilateral vertebral arteries appear to be patent. IMPRESSION: Postop changes of bilateral frontal craniotomies. There are multiple enhancing masses anteriorly which appear to be intraparenchymal as well as along the convexities on the right frontal lobe as well as along the anterior right temporal lobe and interhemispheric falx. Findings are suggestive of neoplasm. There is extensive vasogenic edema bilateral frontal lobes. No definite thromboembolism or large vessel occlusion is identified. Dictated by: Dictated on workstation # [id number]
[2021-12-20 06:24] LABS: BASOPHILS % (AUTO) 0 % (0-10); EOSINOPHILS % (AUTO) 0 % (0-10); HEMATOCRIT 43 % (40-54); HEMOGLOBIN 14.4 g/dL (13.3-17.7); LYMPHOCYTES # (AUTO) 1.1 10^3/uL (1.0-4.0); LYMPHOCYTES % (AUTO) 16 % (12-44); MEAN CORPUSCULAR HEMOGLOBIN 30 pg (25-34); MEAN CORPUSCULAR HGB CONC 34 g/dL (32-36); MEAN CORPUSCULAR VOLUME 89 fL (80-99); MONOCYTES # (AUTO) 0.2 10^3/uL (0.0-1.0); MONOCYTES % (AUTO) 2 % (0-12); NEUTROPHILS # (AUTO) 5.8 10^3/uL (1.8-7.8); NEUTROPHILS % (AUTO) 81 % (42-75); PLATELET COUNT 227 10^3/uL (130-400); WHITE BLOOD COUNT 7.1 10^3/uL (4.3-11.0)
[2021-12-20 06:45] LABS: POTASSIUM 3.9 MMOL/L (3.6-5.0)
[2021-12-20] MEDS: CATHETER FLUSH 10 ML SYR IVP SCH ×2 (06:48→14:02)
[2021-12-20 06:51] LABS: CREATININE SERUM 0.92 MG/DL (0.60-1.30)
[2021-12-20 07:37] VITALS: BP 116/58
[2021-12-20] MEDS ORDERED: LEVE100015 PO (07:54)
[2021-12-20] MEDS ORDERED: MIRA50TA PO (07:59)
[2021-12-20] MEDS ORDERED: ASPIRIN 325 MG (5 GR) TABLET PO SCH (09:00)
[2021-12-20] MEDS ORDERED: LEVETIRACETAM 1,000 MG/NS 100 ML IVPB IV SCH ×2 (09:00)
[2021-12-20] MEDS: methylPREDNISolone 125 MG (Solu-MEDROL) VIAL IV SCH ×2 (09:16→15:10)
--- NOTE | 2021-12-20 09:50 | Physical Therapy Evaluation ---
PT Evaluation-General Medical Diagnosis Admission Date Dec 20, 2021 at 01:22 Medical Diagnosis: brain tumor/potential CVA/seizures Onset Date: Dec 19, 2021 Therapy Diagnosis Therapy Diagnosis: generalized weakness/debility Height/Weight Height (Feet): 5 Height (Inches): 5.00 Weight (Pounds): 181 Weight (Ounces): 8.0 Precautions Precautions/Isolations: Seizure, Fall Prevention, Standard Precautions Referral Physician: Jalyn Reason for Referral: Evaluation/Treatment Medical History Pertinent Medical History: CAD, CVA, HTN, [place] Additional Medical History brain tumor Current History EMS from home secondary to weakness and incontinence Reviewed History: Yes Social History Home: Single Level Current Living Status: Spouse Prior Prior Level of Function SCALE: Activities may be completed with or without assistive devices. 0-Mxuhcpymex-qijahzj completes the activity by him/herself with no assistance from a helper. 5-Set-up or Clean-up Assistance-helper sets up or cleans up; patient completes activity. [place] assists only prior to or following the activity. 4-Supervision or Touching Assistance-helper provides verbal cues and/or touching/steadying and/or contact guard assistance as patient completes activity. Assistance may be provided throughout the activity or intermittently. 3-Partial/Moderate Assistance-helper does LESS THAN HALF the effort. [place] lifts, holds or supports trunk or limbs, but provides less than half the effort. 2-Substantial/Maximal Assistance-helper does MORE THAN HALF the effort. [place] lifts or holds trunk or limbs and provides more than half the effort. 9-Mslkhycws-suzhxc does ALL the effort. Patient does none of the effort to complete the activity. Or, the assistance of 2 or more helpers is required for the patient to complete the activity. If activity was not attempted, code reason: 7-Patient Refused. 9-Not Applicable-not attempted and the patient did not perform the activity before the current illness, exacerbation or injury. 10-Not Attempted due to Environmental Limitations-(lack of equipment, weather restraints, etc.). 88-Not Attempted due to Medical Conditions or Safety Concerns. undetermined due to patient's confusion and no family present. PT Evaluation-Current Subjective Patient agrees to PT. He answers questions appropriately Objective Patient Orientation: Person ROM/Strength ROM Lower Extremities bilateral LE WFL Strength Lower Extremities 3/5 grossly bilateral LE (unable to formally test due to patient's inability to follow direction) Integumentary/Posture Bowel Incontinence: Yes Bladder Incontinence: Yes Posture WFL Neuromuscular (Tone, Coordination, Reflexes) slightly diminished coordination Sensory Vision: Unable to Assess Hearing: Functional Transfers Lying to Sitting/Side of Bed(Q: 3 Sit to Stand (QC): 3 Chair/Pct-tu-Hrdmr Xfer(QC): 3 Gait Mode of Locomotion: Walk Anticipated Mode of Locomotion: Walk Walk 10 feet (QC): 3 Walk 50 ft with 2 Turns(QC): 3 Walk 150 ft (QC): 3 Distance: 275' Gait Assistive Device: FWW Comments/Gait Description slightly unsteady gait sequence with PT assist to correct and advance FWW Balance Sitting Static: Normal Sitting Dynamic: Normal Standing Static: Fair Standing Dynamic: Fair Assessment/Needs 76 y.o. male, will be seen by skilled PT to address functional strength and mobility to improve current LOF to safely return to home with spouse at maximum LOF. Rehab Potential: Guarded PT Snf Goals Winch Stripper Goals PT Winch Stripper Goals Time Frame: Dec 27, 2021 Roll Left & Right (QC): 4 Sit to Lying (QC): 4 Lying-Sitting on Side/Bed(QC): 4 Sit to Stand (QC): 4 Chair/Gad-zd-Xgcsx Xfer(QC): 4 Toilet Transfer (QC): 4 Walk 10 feet (QC): 4 Walk 50ft with 2 Turns (QC): 4 Walk 150 ft (QC): 4 PT Plan Problem List Problem List: Activity Tolerance, Functional Strength, Safety, Balance, Gait, Transfer, Bed Mobility Treatment/Plan Treatment Plan: Continue Plan of Care Treatment Plan: Bed Mobility, Education, Functional Activity Tra, Functional Strength, Gait, Safety, Therapeutic Exercise, Transfers Treatment Duration: Dec 27, 2021 Frequency: 6 times per week Estimated Hrs Per Day: .25 hour per day Patient and/or Family Agrees t: Yes Time/GCodes Time In: 755 Time Out: 808 Total Billed Treatment Time: 13 Total Billed Treatment 1 visit EVModC 13 min BREN TABOR PT Dec 20, 2021 09:50
[2021-12-20 11:27] VITALS: BP 128/59
[2021-12-20] MEDS ORDERED: LORA2ORA PO (11:56)
[2021-12-20] MEDS ORDERED: MORP100S7 PO (11:56)
[2021-12-20] MEDS ORDERED: DEXA4TAB PO (11:56)
--- NOTE | 2021-12-20 13:15 | Short Stay Summary-Hospitalist ---
History of Present Illness HPI/Chief Complaint Valerio Brady Sr is a 76 year old male with PMH brain cancer s/p surgery/chemotherapy/radiation who presented with altered mental status. He was not speaking. He was weak. He has a history of seizures and is on antiepileptic drugs. Upon my exam, he has returned to his baseline. He is alert and oriented. His cognition is a bit slowed. His did not want to pursue aggressive treatment when options were discussed in the ER. Source: patient, family, RN/MD Exam Limitations: no limitations Date Seen 12/20/21 Time Seen by a Provider: 12:00 Attending Physician Osmany Jimenez DO PCP Admitting Physician: Tiffanie Paul MD Attending Physician: Tiffanie Paul MD Referring Physician Date of Admission Dec 20, 2021 at 01:22 Home Medications & Allergies Home Medications Reviewed patient Home Medication Reconciliation performed by pharmacy medication reconciliations it support technician and/or nursing. Patients Allergies have been reviewed. Allergies Allergies Coded Allergies No Known Drug Allergies (Unverified05/16/11) Past Ciffecq-Hmnjim-Hjxaru Hx Patient Social History Tobacco Use?: No Current Status Advance Directives: Unable to obtain Communicates: Verbally Primary Language: Mongolian Preferred Spoken Language: Mongolian Sensory deficits: Vision impairment Past Medical History Surgeries: Coronary Stent, Gallbladder Currently Using CPAP: No Currently Using BIPAP: No Coronary Artery Disease, Heart Attack, High Cholesterol, Hypertension Brain Tumor, Stroke Gastroesophageal Reflux, Chronic Diarrhea Brain Did You Recieve Any Treatments: Yes What Type of Treatment Did You: Radiation Blood Disorders: No Adverse Reaction/Blood Tranf: No Family Medical History Heart Disease, Cancer, CAD Over 55 Years Old Review of Systems Constitutional: weakness EENTM: no symptoms reported Respiratory: no symptoms reported Cardiovascular: no symptoms reported Gastrointestinal: no symptoms reported Physical Exam Physical Exam Vital Signs Vital Signs - First Documented 12/19/21 21:07 Temp 37.0 Pulse 86 Resp 19 B/P (MAP) 116/80 (92) Pulse Ox 89 O2 Delivery Nasal Cannula O2 Flow Rate 3.00 FiO2 89 Capillary Refill : Less Than 3 Seconds Height, Weight, BMI Height: 5'5.00" Weight: 181lbs. 8.0oz. 82.831661ij; 27.93 BMI Method:Stated General Appearance: No Apparent Distress, Chronically ill Eyes: Bilateral Eye Normal Inspection, Bilateral Eye PERRL, Bilateral Eye EOMI HEENT: PERRL/EOMI, Pharynx Normal, Moist Mucous Membranes Neck: Normal Inspection, Supple Respiratory: Lungs Clear, Normal Breath Sounds, No Respiratory Distress Cardiovascular: Regular Rate, Rhythm, No Edema, Normal Peripheral Pulses Gastrointestinal: Normal Bowel Sounds, Non Tender, Soft Extremity: Normal Inspection, No Pedal Edema Neurologic/Psychiatric: Alert, Normal Mood/Affect, Other (Oriented to self, echoes questions asked him. Struggles to identify objects but can point on a picture to what is wrong. Aphasic. Not mute.) Skin: Normal Color, Warm/Dry Results Results/Procedures Labs Laboratory Tests 12/19/21 21:17 12/20/21 06:14 Patient resulted labs reviewed. Imaging: Reviewed Imaging Report Short Stay Diagnosis Discharge Diagnosis-Short Stay Admission Diagnosis Brain tumor Final Discharge Diagnosis Brain tumor Conclusion Plan Brain tumor Mass effect Midline shift of brain Cerebral edema Seizure disorder CT/CTA revealed multiple intraparenchymal brain tumors with mass effect, midline shift, edema Options discussed with in ER, did not want to pursue aggressive treatment of recurrent brain tumors elected to pursue hospice care Planning for discharge with [facility] Diagnosis/Problems Diagnosis/Problems (1) Brain tumor Status: Acute (2) Neoplasm of brain causing mass effect on adjacent structures Status: Acute (3) Nontraumatic cerebral edema Status: Acute (4) Midline shift of brain Status: Acute (5) Seizure disorder Status: Acute Clinical Quality Measures Stroke: Date of last known well: Dec 19, 2021 Time of last known well: 14:00 TIFFANIE PAUL MD Dec 20, 2021 13:15
[2021-12-20 17:06] VITALS: BP 128/59
== END 2021-12-20 17:02 | disposition hospice, home (50) | DRG 54 ==
LOC: EDUNIT# 20:47 → ER 21:04 → 4TH 12-20 01:22
PROVIDERS: ADMIT Internal Medicine; ATTEND Internal Medicine
DX: D49.6 Neoplasm of unspecified behavior of brain (principal); G93.6 Cerebral edema; R47.01 Aphasia; G40.909 Epilepsy, unspecified, not intractable, without status epilepticus; I25.10 Atherosclerotic heart disease of native coronary artery without angina pectoris; E78.00 Pure hypercholesterolemia, unspecified; R53.1 Weakness; Z20.822 Contact with and (suspected) exposure to COVID-19; I10 Essential (primary) hypertension; K21.9 Gastro-esophageal reflux disease without esophagitis; Z95.5 Presence of coronary angioplasty implant and graft; I25.2 Old myocardial infarction; Z86.73 Personal history of transient ischemic attack (TIA), and cerebral infarction without residual deficits; Z92.3 Personal history of irradiation; Z92.21 Personal history of antineoplastic chemotherapy; Z79.82 Long term (current) use of aspirin; Z79.899 Other long term (current) drug therapy
CPT/HCPCS: 36415; 51702; 70450; 70496; 70498; 71045; 80048; 80053; 80306; 80320; 81000; 84484; 85025; 86141; 87040; 87088; 87636; 93005